=== PATIENT | male | born 1935 | race Caucasian/White ===

== ENCOUNTER 2018-02-16 08:29 | Inpatient (IN) | payer MEDICARE, OTHER ==
[2018-02-16] MEDS ORDERED: NORMAL SALINE 1000 ML 1,000 ML IV ONE (09:19)
[2018-02-16] MEDS ORDERED: DIPHENOXYLATE HCL/ATROP SULF 2.5-0.025 MG TABLET PO ONE (09:21)
--- NOTE | 2018-02-16 09:26 | ER Document Report ---
ED General - General Chief Complaint: General Weakness Stated Complaint: WEAKNESS Time Seen by Provider: 02/16/18 09:18 Mode of Arrival: Stretcher Information source: Relative, Legal Guardian Notes: Chief complaint: General weakness History of complain:( obtained from----patient) 83 years old male with a history of drinking bottle and a half of wine every day, till a week ago. For a week he has been mostly on bed not been eating anything drinking milk and other fluids, having continuous diarrhea. No nausea vomiting no fever chills or other constitutional symptoms. Denies any chest pain shortness of breath cough. Onset: Gradual Duration: 1 week Severity: Mild to moderate Quality: General weakness Context: Not eating and drinking Exacerbating factor and relieving factors: Not known REVIEW OF SYSTEMS: CONSTITUTIONAL : Denies fever, chills, or sweats. Denies recent illness. EENT: Denies eye, ear, throat, or mouth pain or symptoms. Denies nasal or sinus congestion or discharge. Denies throat, tongue, or mouth swelling or difficulty swallowing. CARDIOVASCULAR: Denies chest pain. Denies palpitations or racing or irregular heart beat. Denies ankle edema. RESPIRATORY: Denies cough, cold, or chest congestion. Denies shortness of breath, difficulty breathing, or wheezing. GASTROINTESTINAL: Denies distention. Denies nausea, vomiting. Denies blood in vomitus, stools, or per rectum. Denies black, tarry stools. Denies constipation. GENITOURINARY: Denies difficulty urinating, painful urination, burning, frequency, blood in urine, or discharge. FEMALE GENITOURINARY: Denies vaginal bleeding, heavy or abnormal periods, irregular periods. Denies vaginal discharge or odor. MUSCULOSKELETAL: Denies back or neck pain or stiffness. Denies joint pain or swelling. SKIN: Denies rash, lesions or sores. HEMATOLOGIC : Denies easy bruising or bleeding. LYMPHATIC: Denies swollen, enlarged glands. NEUROLOGICAL: Denies confusion or altered mental status. Denies passing out or loss of consciousness. Denies dizziness or lightheadedness. Denies headache. Denies weakness or paralysis or loss of use of either side. Denies problems with gait or speech. Denies sensory loss, numbness, or tingling. Denies seizures. PSYCHIATRIC: Denies anxiety or stress. Denies depression, suicidal ideation, or homicidal ideation. ALL OTHER SYSTEMS REVIEWED AND NEGATIVE. PHYSICAL EXAMINATION: GENERAL: Well-appearing, well-nourished and in no acute distress. Appears generally weak and dry skin HEAD: Atraumatic, normocephalic. EYES: Pupils equal round and reactive to light, extraocular movements intact, conjunctiva are normal. ENT: Nares patent, oropharynx clear without exudates. Moist mucous membranes. NECK: Normal range of motion, supple without lymphadenopathy LUNGS: Breath sounds clear to auscultation bilaterally and equal. No wheezes rales or rhonchi. HEART: Regular rate and rhythm without murmurs ABDOMEN: Soft, nontender, nondistended abdomen. No guarding, no rebound. No masses appreciated. Examination of genitals-deferred Musculoskeletal: Normal range of motion, no pitting or edema. No cyanosis. NEUROLOGICAL: Cranial nerves grossly intact. Normal speech, normal gait. Normal sensory, motor exams PSYCH: Normal mood, normal affect. SKIN: Warm, Dry, normal turgor, no rashes or lesions noted. Dictation was performed using [employer] voice recognition software TRAVEL OUTSIDE OF THE [place] IN LAST 30 DAYS: No - HPI Patient complains to provider of: Dictated Notes: Dictated - Related Data Allergies/Adverse Reactions: No Known Allergies Allergy (Verified 02/16/18 08:47) Past Medical History - Social History Smoking Status: Former Smoker Cigarette use (# per day): No Chew tobacco use (# tins/day): No Smoking Education Provided: No Frequency of alcohol use: Heavy Drug Abuse: None Lives with: Family Family History: Reviewed & Not Pertinent Patient has suicidal ideation: No Patient has homicidal ideation: No - Past Medical History Cardiac Medical History: Reports: Hx Atrial Fibrillation Pulmonary Medical History: Reports: Hx COPD, Hx Pneumonia Endocrine Medical History: Reports: Hx Diabetes Mellitus Type 2 Renal/ Medical History: Denies: Hx Peritoneal Dialysis Review of Systems - Review of Systems Notes: Dictated Physical Exam - Vital signs Vitals: Temp Resp BP Pulse Ox 97.6 F 18 120/77 100 02/16/18 08:30 02/16/18 08:30 02/16/18 08:30 02/16/18 08:30 - Notes Notes: Dictated Course - Re-evaluation Re-evalutation: 02/16/18 14:25 Case was discussed with hospitalist and currently being admitted - Vital Signs Vital signs: Temp Pulse Resp BP Pulse Ox 97.6 F 23 H 119/72 99 02/16/18 08:30 02/16/18 13:01 02/16/18 13:00 02/16/18 13:01 - Laboratory Result Diagrams: 02/16/18 10:41 02/16/18 11:27 Laboratory results interpreted by me: 02/16/18 02/16/18 02/16/18 10:41 11:27 11:27 WBC 17.3 H RBC 3.58 L Hgb 12.3 L Hct 36.1 L MCV 101 H MCH 34.3 H RDW 14.7 H Seg Neuts % (Manual) 96 H Lymphocytes % (Manual) 0 L Abs Neuts (Manual) 16.6 H Abs Lymphs (Manual) 0.0 L Sodium 131.8 L Carbon Dioxide 15 L BUN 133 H Creatinine 2.29 H Est GFR ( Amer) 33 L Est GFR (Non-Af Amer) 28 L Glucose 152 H AST 14 L Ammonia < 8.7 L Creatine Kinase 27 L - Diagnostic Test Radiology reviewed: Reports reviewed - Reported by radiologist as stable, no acute finding - EKG Interpretation by Me Rhythm: A.Fib - Atrial fibrillation at the rate of 81 bpm PVCs multiple, right bundle branch block pattern. Discharge - Discharge Clinical Impression: Dehydration, Gastroenteritis Acute renal failure (ARF) Qualifiers: Acute renal failure type: unspecified Qualified Code(s): N17.9 - Acute kidney failure, unspecified Condition: Poor Disposition: ADMITTED INPATIENT Admitting Provider: Hospitalist Unit Admitted: Telemetry Referrals: CHEMA FERNANDEZ MD [Primary Care Provider] - Follow up as needed
[2018-02-16] MEDS: NORMAL SALINE 1000 ML 1,000 ML IV PRN (09:41)
[2018-02-16 10:13] LABS: APPEARANCE,URINE CLEAR; BILIRUBIN,URINE NEGATIVE (NEGATIVE); COLOR,URINE YELLOW; GLUCOSE, URINE NEGATIVE (NEGATIVE); KETONES,URINE NEGATIVE (NEGATIVE); LEUKOCYTE ESTERASE,URINE NEGATIVE (NEGATIVE); NITRITE,URINE NEGATIVE (NEGATIVE); PROTEIN,URINE NEGATIVE (NEGATIVE); URINE SPECIFIC GRAVITY 1.017; UROBILINOGEN,URINE NEGATIVE mg/dL (<2.0)
--- NOTE | 2018-02-16 10:36 | RADIOLOGY REPORT (SQ) ---
EXAM DESCRIPTION: ACUTE ABDOMEN SERIES COMPLETED DATE/TIME: 02/16/2018 10:15 am REASON FOR STUDY: Abdominal pain COMPARISON: Plain films of the chest dated 05/22/2009 NUMBER OF VIEWS: Three views. TECHNIQUE: Frontal chest, supine abdomen and upright/decubitus abdomen radiographic images acquired. LIMITATIONS: None. FINDINGS: CHEST: Stable subsegmental linear atelectasis or scar right lower lung. Mild emphysemato us changes suggested in the lungs. No acute pulmonary consolidation. FREE AIR: None. No abnormal gas collections. BOWEL GAS PATTERN: Mild to moderate dilated colonic loops. Nonobstructive pattern. No air fluid leve ls. CALCIFICATIONS: No suspicious calcifications. HARDWARE: Status post endovascular stent graft repair abdominal aortic aneurysm. SOFT TISSUES: No gross mass or suggestion of organomegaly. BONES: No acute fracture. Dextroconvex scoliosis and degenerative changes involving the lumbar spine . OTHER: No other significant finding. IMPRESSION: 1 Stable examination of the chest since the prior study dated 05/22/2009. 2. Mild to moderate dilated colonic loops, non-obstructive pattern. 3. Prior endovascular stent graft repair for abdominal aortic aneurysm. TECHNICAL DOCUMENTATION: JOB ID: [id number] [employer]- All Rights Reserved Reading location - IP/workstation name: [email or web address]
[2018-02-16 11:07] LABS: HEMATOCRIT 36.1 % (37.9-51.0); HEMOGLOBIN 12.3 g/dL (13.5-17.0); MEAN CORPUSCULAR HEMOGLOBIN 34.3 pg (27.0-33.4); MEAN CORPUSCULAR VOLUME 101 fl (80-97); PLATELET COUNT 254 10^3/uL (150-450); RED BLOOD COUNT 3.58 10^6/uL (4.35-5.55); RED CELL DISTRIBUTION WIDTH 14.7 % (11.5-14.0); WHITE BLOOD COUNT 17.3 10^3/uL (4.0-10.5)
[2018-02-16 11:26] LABS: ABSOLUTE MONOCYTES # (MANUAL) 0.7 10^3/uL (0.1-1.4); ABSOLUTE NEUTROPHILS# (MANUAL) 16.6 10^3/uL (1.7-8.2); BASOPHILS % (MANUAL) 0 % (0-2); EOSINOPHILS % (MANUAL) 0 % (0-6); LYMPHOCYTES % (MANUAL) 0 % (13-45); MONOCYTES % (MANUAL) 4 % (3-13); SEGMENTED NEUTROPHILS % (MAN) 96 % (42-78); TOTAL CELLS COUNTED 100
[2018-02-16 11:27] LABS: BURR CELLS 1+; OVALOCYTES 2+; PLATELET COMMENT ADEQUATE; POIKILOCYTOSIS 2+; POLYCHROMASIA 1+; SCHISTOCYTES 1+; TOXIC GRANULATION SLIGHT
[2018-02-16 12:05] LABS: ALANINE AMINOTRANSFERASE 29 U/L (21-72); ALKALINE PHOSPHATASE 66 U/L (38-126); ANION GAP 16 (5-19); ASPARTATE AMINO TRANSFERASE 14 U/L (17-59); BILIRUBIN,DIRECT 0.4 mg/dL (0.0-0.4); BILIRUBIN,TOTAL 0.7 mg/dL (0.2-1.3); CALCIUM 8.4 mg/dL (8.4-10.2); CARBON DIOXIDE 15 mmol/L (22-30); CHLORIDE 101 mmol/L (98-107); CREATINE KINASE 27 U/L (55-170); GLUCOSE 152 mg/dL (75-110); LIPASE 96.7 U/L (23-300); POTASSIUM 4.6 mmol/L (3.6-5.0); SODIUM 131.8 mmol/L (137-145); TOTAL PROTEIN 6.7 g/dL (6.3-8.2)
[2018-02-16 12:15] LABS: BLOOD UREA NITROGEN 133 mg/dL (7-20)
[2018-02-16 12:25] LABS: CREATINE KINASE MB 4.31 ng/mL (<4.55)
[2018-02-16 13:21] LABS: TROPONIN I 0.051 ng/mL
[2018-02-16] MEDS ORDERED: CIPROFLOXACIN 400 MG/D5W RTU 400 MG/200 ML RTUPB IV SCH ×2 (15:00→22:00)
[2018-02-16] MEDS ORDERED: METRONIDAZOLE 500 MG/NS RTU 500 MG/100 ML RTUPB IV ONE (15:00)
[2018-02-16] MEDS ORDERED: ACETAMINOPHEN 325 MG TABLET PO PRN (15:50)
[2018-02-16] MEDS ORDERED: IPRATROPIUM/ALBUTEROL 0.5-2.5 MG/3 ML AMPUL NEB PRN (15:50)
[2018-02-16] MEDS ORDERED: PROMETHAZINE HCL INJ 25 MG/1 ML VIAL IV PRN (15:57)
[2018-02-16] MEDS ORDERED: ONDANSETRON HCL INJ/PF 4 MG/2 ML SDV IV PRN (15:57)
[2018-02-16] MEDS ORDERED: CIPROFLOXACIN 400 MG/D5W RTU 400 MG/200 ML RTUPB IV ONE (16:00)
[2018-02-16] MEDS ORDERED: METRONIDAZOLE 500 MG/NS RTU 500 MG/100 ML RTUPB IV SCH (18:00)
[2018-02-16] MEDS: NORMAL SALINE 1000 ML 1,000 ML with POTASSIUM CHLORIDE 20 MEQ, MAGNESIUM SULFATE 8 MEQ,... IV SCH ×5 (18:36)
[2018-02-16] MEDS ORDERED: DEXTROSE 50%-WATER 25 GM/50 ML DISP.SYRIN IV PRN ×2 (18:41)
[2018-02-16] MEDS ORDERED: DEXTROSE 40% GEL 15 GM TUBE PO PRN ×2 (18:41)
[2018-02-16] MEDS ORDERED: GLUCAGON,HUMAN RECOMB 1 MG INJ IM PRN (18:41)
--- NOTE | 2018-02-16 18:46 | PDOC H&P ---
History of Present Illness Admission Date/PCP: 02/16/18 14:57 CHEMA FERNANDEZ MD Patient complains of: Weakness History of Present Illness: AZEB GOMES JR is a 83 year old male with a limited past medical history, due to the patient's mental status and family's unawareness, but known to have COPD, type 2 diabetes mellitus, hyperlipidemia, and alcohol abuse alcohol abuse who presents to the emergency department today with a complaint of increased fatigue, generalized weakness, and diarrhea for the last 5-7 days after the patient abruptly stopped drinking alcohol. Per the family the patient drinks 1- 2 bottles of wine daily. The son believes that the patient was being treated for a COPD exacerbation which prompted him to stop drinking. They deny any seizure-like activity over the course of the previous week and do not believe that the patient has a history of alcohol withdrawal related seizures. Evaluation in the emergency department reveals tachypnea (respiration rate 23) and otherwise normal vital signs, leukocytosis (WBCs 17.3), mild anemia, Hyponatremia (sodium 131.8) a low bicarb (15) and acute renal failure with a BUN of 133 and creatinine of 2.29. His LFTs were benign, ammonia less than 8.7. Initial troponin was indeterminately elevated at 0.051 and a proBNP was elevated at 1960. Urinalysis was negative for UTI. EKG revealed atrial fibrillation, which per family members is new to the patient. An acute abdomen series was negative for acute cardiopulmonary findings, demonstrated mild to moderate dilated colonic loops in a nonobstructive pattern, and prior endovascular stent graft for repair of AAA. He is referred to the hospitalist service for admission and management of acute renal failure secondary to dehydration in the setting of alcohol withdrawal. Past Medical History Cardiac Medical History: Denies: Congestive Heart Failure, Coronary Artery Disease, Myocardial Infarction Pulmonary Medical History: Reports: Chronic Obstructive Pulmonary Disease (COPD) , Pneumonia Neurological Medical History: Reports: None Endocrine Medical History: Reports: Diabetes Mellitus Type 2 Renal/ Medical History: Reports: None Malignancy Medical History: Reports: Skin Cancer GI Medical History: Reports: None Musculoskeltal Medical History: Reports: None Skin Medical History: Reports: None Psychiatric Medical History: Reports: Alcohol Dependency Denies: Tobacco Dependency Traumatic Medical History: Reports: None Hematology: Reports: None Infectious Medical History: Reports: None Past Surgical History Past Surgical History: Reports: Other - Endovascular graft AAA Social History Information Source: Relative Lives with: Family Smoking Status: Former Smoker Frequency of Alcohol Use: Heavy Hx Recreational Drug Use: No Drugs: None Hx Prescription Drug Abuse: No - Advance Directive Resuscitation Status: Do Not Resuscitate Surrogate healthcare decision maker:: The patient's , Roula Gomes, Family History Family History: Reviewed & Not Pertinent Parental Family History Reviewed: No Children Family History Reviewed: No Sibling(s) Family History Reviewed.: No Medication/Allergy Allergies/Adverse Reactions: No Known Allergies Allergy (Verified 02/16/18 08:47) Review of Systems Constitutional: PRESENT: anorexia, weakness. ABSENT: chills, fever(s), headache (s), weight gain, weight loss Eyes: ABSENT: visual disturbances Ears: ABSENT: hearing changes Cardiovascular: ABSENT: chest pain, dyspnea on exertion, edema, orthropnea, palpitations Respiratory: ABSENT: cough, hemoptysis Gastrointestinal: PRESENT: diarrhea, melena. ABSENT: abdominal pain, constipation, hematemesis, hematochezia, nausea, vomiting Genitourinary: ABSENT: dysuria, hematuria Musculoskeletal: ABSENT: joint swelling Integumentary: ABSENT: rash, wounds Neurological: PRESENT: weakness. ABSENT: abnormal gait, abnormal speech, confusion, dizziness, focal weakness, syncope Psychiatric: ABSENT: anxiety, depression, homidical ideation, suicidal ideation Endocrine: ABSENT: cold intolerance, heat intolerance, polydipsia, polyuria Hematologic/Lymphatic: ABSENT: easy bleeding, easy bruising Physical Exam Vital Signs: Temp Pulse Resp BP Pulse Ox 97.6 F 22 H 114/57 L 98 02/16/18 08:30 02/16/18 15:01 02/16/18 15:00 02/16/18 15:01 General appearance: PRESENT: no acute distress, disheveled, well-developed, well -nourished Head exam: PRESENT: atraumatic, normocephalic Eye exam: PRESENT: conjunctiva pink, EOMI, PERRLA. ABSENT: scleral icterus Ear exam: PRESENT: normal external ear exam Mouth exam: PRESENT: dry mucosa, tongue midline Neck exam: ABSENT: carotid bruit, JVD, lymphadenopathy, thyromegaly Respiratory exam: PRESENT: clear to auscultation tanvi, symmetrical, unlabored. ABSENT: rales, rhonchi, wheezes Cardiovascular exam: PRESENT: irregular rhythm, +S1, +S2. ABSENT: diastolic murmur, rubs Pulses: PRESENT: +1 pedal pulses bilateral Vascular exam: PRESENT: normal capillary refill GI/Abdominal exam: PRESENT: diminished bowel sounds, soft. ABSENT: distended, guarding, mass, organolmegaly, rebound, tenderness Rectal exam: PRESENT: deferred Extremities exam: PRESENT: full ROM. ABSENT: calf tenderness, clubbing, pedal edema Neurological exam: PRESENT: alert, awake, oriented to person, oriented to place , CN II-XII grossly intact, other - Somnolent; arouses easily but quickly falls back to sleep. Slightly confused.. ABSENT: oriented to time, oriented to situation, motor sensory deficit Psychiatric exam: PRESENT: appropriate affect, normal mood. ABSENT: homicidal ideation, suicidal ideation Skin exam: PRESENT: dry, intact, warm. ABSENT: cyanosis, rash Results Laboratory Results: 02/16/18 17:14 Troponin I 0.048 Impressions: Acute Abdomen Series 02/16/18 09:20 IMPRESSION: 1 Stable examination of the chest since the prior study dated 05/22. 2. Mild to moderate dilated colonic loops, non-obstructive pattern. 3. Prior endovascular stent graft repair for abdominal aortic aneurysm. Assessment & Plan - Diagnosis (1) Acute renal failure (ARF) Qualifiers: Acute renal failure type: unspecified Qualified Code(s): N17.9 - Acute kidney failure, unspecified Is this a current diagnosis for this admission?: Yes Plan: Acute renal failure; prerenal secondary to dehydration. Unknown baseline creatinine as previous laboratory evaluation is from 2010 and family are unaware of his current medical history. The patient is found to have a BUN of 133, creatinine 2.29, GFR 28. Fortunately his sodium is only mildly low and potassium is normal. He is placed on a clear liquid diet; will encourage p.o. fluids. Antiemetics as needed. He is placed on IV fluids. Avoid nephrotoxic medications as able. Renally dosed antibiotics. We will monitor serial chemistries. Consider renal ultrasound or nephrology consultation if no improvement with IV fluid rehydration overnight. (2) Atrial fibrillation Qualifiers: Atrial fibrillation type: unspecified Qualified Code(s): I48.91 - Unspecified atrial fibrillation Is this a current diagnosis for this admission?: Yes Plan: Atrial fibrillation; due to the patient per family members, although they admittedly do not know his medical history well. Home medications are not available for reconciliation. He is currently rate controlled in the 80s. No heart murmurs are auscultated. We will obtain echocardiogram. Due to family report of melena, holding aspirin and anticoagulant therapy pending evaluation. (3) Alcohol withdrawal Qualifiers: Complication of substance-induced condition: with unspecified complication Qualified Code(s): F10.239 - Alcohol dependence with withdrawal, unspecified Is this a current diagnosis for this admission?: Yes Plan: The patient reportedly drinks 1-1/2 bottles of wine daily and abruptly stopped drinking alcohol about 7 hours ago. Per family members, the patient has had very little intake over the last 7 days with near continuous loose stools. No known history of alcohol withdrawal seizure. As the patient stopped drinking 1 week ago, there is no need for scheduled benzodiazepines. The patient is placed on fall, seizure, aspiration precautions. We will continueduled IV maintenance fluids. We will provide as needed IV Ativan for anxiety, agitation, and withdrawal symptoms. Antiemetics as needed. Banana bag nightly. Discharge planning is consulted. (4) Type 2 diabetes mellitus Qualifiers: Diabetes mellitus half-way insulin use: without half-way use Is this a current diagnosis for this admission?: No Plan: The patient is placed on a consistent carb/clear liquid diet. We will check Accu-Cheks before meals and at bedtime and provide Humalog sliding scale coverage. Hypoglycemia protocols in place. (5) COPD (chronic obstructive pulmonary disease) Is this a current diagnosis for this admission?: No Plan: History of COPD; stable and without exacerbation at this time. Reportedly, the patient was recently treated with azithromycin and a steroid pack. His lung sounds are clear at present. Provide supplemental oxygen as needed to maintain oxygen saturations greater than 88%. As needed nebulizer treatments are available. No indication for steroids at this time. (6) Hyperlipidemia Is this a current diagnosis for this admission?: No Plan: We will resume the patient's home medications once reconciled. (7) Dehydration Is this a current diagnosis for this admission?: Yes Plan: Secondary to EtOH withdrawal resulting in loose stools and poor p.o. intake for the previous 7 days. Plan as above. (8) Gastroenteritis Is this a current diagnosis for this admission?: Yes Plan: Alcoholic gastroenteritis with report of melena. We will support with IV fluids. As needed antiemetics. We will obtain stool for culture to rule out additional causes as well as to test for blood. He is placed on IV Protonix twice daily; holding DVT prophylaxis and aspirin pending fecal occult stool. Due to leukocytosis and acute abdomen xray showing moderately dilated colon, the patient is placed on renally dosed IV Cipro and metronidazole. (9) Alcohol dependence, continuous Is this a current diagnosis for this admission?: Yes Plan: Plan as above. - Time Time Spent: 50 to 70 Minutes Medications reviewed and adjusted accordingly: Yes Anticipated discharge: Home - Inpatient Certification Based on my medical assessment, after consideration of the patient's comorbidities, presenting symptoms, or acuity I expect that the services needed warrant INPATIENT care.: Yes I certify that my determination is in accordance with my understanding of Medicare's requirements for reasonable and necessary INPATIENT services [42 CFR 412.3e].: Yes Medical Necessity: Need For IV Fluids
[2018-02-16] MEDS ORDERED: DIAZEPAM 5 MG TABLET PO PRN (18:54)
[2018-02-16] MEDS: METRONIDAZOLE 500 MG/NS RTU 500 MG/100 ML RTUPB IV SCH (20:58)
--- NOTE | 2018-02-16 22:04 | EKG REPORT ---
SEVERITY:- ABNORMAL ECG - ATRIAL FIBRILLATION RBBB AND LAFB : Confirmed by: Jamila Graves MD 16-Feb-2018 22:03:54
[2018-02-16] MEDS: PANTOPRAZOLE SODIUM 40 MG VIAL IV SCH (23:56)
[2018-02-17 03:55] LABS: HEMATOCRIT 33.7 % (37.9-51.0); HEMOGLOBIN 11.5 g/dL (13.5-17.0); MEAN CORPUSCULAR HEMOGLOBIN 34.3 pg (27.0-33.4); MEAN CORPUSCULAR HGB CONC 34.2 g/dL (32.0-36.0); MEAN CORPUSCULAR VOLUME 100 fl (80-97); PLATELET COUNT 233 10^3/uL (150-450); RED BLOOD COUNT 3.37 10^6/uL (4.35-5.55)
[2018-02-17 04:11] LABS: ALANINE AMINOTRANSFERASE 31 U/L (21-72); ALBUMIN 3.5 g/dL (3.5-5.0); ALKALINE PHOSPHATASE 56 U/L (38-126); ANION GAP 11 (5-19); ASPARTATE AMINO TRANSFERASE 13 U/L (17-59); BILIRUBIN,DIRECT 0.3 mg/dL (0.0-0.4); CALCIUM 8.5 mg/dL (8.4-10.2); CARBON DIOXIDE 17 mmol/L (22-30); CHLORIDE 107 mmol/L (98-107); GLUCOSE 110 mg/dL (75-110); PHOSPHORUS 3.6 mg/dL (2.5-4.5); POTASSIUM 3.9 mmol/L (3.6-5.0); SODIUM 135.3 mmol/L (137-145)
[2018-02-17 04:14] LABS: ABSOLUTE LYMPHOCYTES# (MANUAL) 0.2 10^3/uL (0.5-4.7); ABSOLUTE MONOCYTES # (MANUAL) 0.1 10^3/uL (0.1-1.4); ABSOLUTE NEUTROPHILS# (MANUAL) 8.7 10^3/uL (1.7-8.2); BASOPHILS % (MANUAL) 0 % (0-2); EOSINOPHILS % (MANUAL) 0 % (0-6); LYMPHOCYTES % (MANUAL) 2 % (13-45); MONOCYTES % (MANUAL) 1 % (3-13); SEGMENTED NEUTROPHILS % (MAN) 97 % (42-78); TOTAL CELLS COUNTED 100
[2018-02-17 04:17] LABS: ACANTHOCYTES SLIGHT; ANISOCYTOSIS SLIGHT; BURR CELLS 2+; POIKILOCYTOSIS 2+; SCHISTOCYTES SLIGHT; TEAR DROP CELLS SLIGHT
[2018-02-17 04:18] LABS: PLATELET COMMENT ADEQUATE
[2018-02-17 04:20] LABS: BLOOD UREA NITROGEN 103 mg/dL (7-20)
[2018-02-17 04:47] LABS: FREE T4 (FREE THYROXINE) 0.68 ng/dL (0.78-2.19)
[2018-02-17 05:01] LABS: THYROID STIMULATING HORMONE 0.46 uIU/mL (0.47-4.68)
[2018-02-17] MEDS: LORAZEPAM INJ 2 MG/1 ML VIAL IV PRN ×3 (05:05→23:47)
[2018-02-17] MEDS: METRONIDAZOLE 500 MG/NS RTU 500 MG/100 ML RTUPB IV SCH ×4 (05:30→23:13)
[2018-02-17] MEDS: NORMAL SALINE 1000 ML 1,000 ML IV PRN (05:30)
[2018-02-17] MEDS: PANTOPRAZOLE SODIUM 40 MG VIAL IV SCH (09:42)
[2018-02-17] MEDS ORDERED: CIPROFLOXACIN 400 MG/D5W RTU 400 MG/200 ML RTUPB IV SCH (16:00)
--- NOTE | 2018-02-17 16:20 | RADIOLOGY REPORT (SQ) ---
EXAM DESCRIPTION: CHEST SINGLE VIEW COMPLETED DATE/TIME: 02/17/2018 4:02 pm REASON FOR STUDY: lethargy. upper respiratory secretions COMPARISON: None. EXAM PARAMETERS: NUMBER OF VIEWS: One view. TECHNIQUE: Single frontal radiographic view of the chest acquired. RADIATION DOSE: NA LIMITATIONS: None. FINDINGS: LUNGS AND PLEURA: Hyperinflation and bullous formation upper lung zones. Bibasilar atelec tasis or infiltrate greater on the right. Depression of the minor fissure on the right related to vo lume loss right lower lobe. MEDIASTINUM AND HILAR STRUCTURES: No masses. Contour normal. HEART AND VASCULAR STRUCTURES: Heart normal in size. Normal vasculature. BONES: No acute findings. HARDWARE: None in the chest. OTHER: No other significant finding. IMPRESSION: COPD. Bibasilar atelectasis or infiltrate significantly greater on the right. TECHNICAL DOCUMENTATION: JOB ID: [id number] [employer]- All Rights Reserved Reading location - IP/workstation name: [email or web address]
[2018-02-17] MEDS: NORMAL SALINE 1000 ML 1,000 ML with POTASSIUM CHLORIDE 20 MEQ, MAGNESIUM SULFATE 8 MEQ,... IV SCH ×5 (17:48)
--- NOTE | 2018-02-17 21:43 | PDOC PROGRESS REPORT ---
Subjective Progress Note for:: 02/17/18 Subjective:: 83 y.o. M admitted to [facility] with a chief complaint of weakness. PMH includes COPD , DM, HLD, and chronic ETOH use. Patient's family reports that he drinks 1.5 bottles of wine per day. He stopped drinking 1 week prior to admission. Proceeded to develop diarrhea and significant weakness. The patient was seen this morning on rounds. He was asleep, but arousable to tactile stimuli. He would open his eyes to command, but is otherwise non- participatory in assessment. Patient remains in AFIB with frequent PVCs. ECHOcardiogram completed today, results pending. Upon auscultation, upper airway rhonci can be auscultated. the patient is able to maintain SPO2>88% on room air. Plan for CXR and upper airway NT suctioning by respiratory therapist. Reason For Visit: ACUTE RENAL FAILURE, DEHYDRATION, HYPONATREMIA Physical Exam Vital Signs: Temp Pulse Resp BP Pulse Ox 97.4 F 88 15 114/50 L 91 L 02/17/18 20:03 02/17/18 20:03 02/17/18 20:03 02/17/18 20:03 02/17/18 20:03 Intake & Output 02/16/18 02/17/18 02/18/18 06:59 06:59 06:59 Intake Total 1843 1354 Balance 1843 1354 Weight 68.7 kg General appearance: PRESENT: no acute distress Eye exam: PRESENT: conjunctiva pink, PERRLA Mouth exam: PRESENT: moist Teeth exam: PRESENT: poor dentation Neck exam: PRESENT: full ROM Respiratory exam: PRESENT: rhonchi, symmetrical. ABSENT: stridor, tachypnea, unlabored Cardiovascular exam: PRESENT: other - AFIB - rate controlled. Frequent PVCs Pulses: PRESENT: normal radial pulses, normal dorsalis pedis pul Vascular exam: PRESENT: normal capillary refill GI/Abdominal exam: PRESENT: soft. ABSENT: tenderness Rectal exam: PRESENT: deferred Extremities exam: PRESENT: full ROM. ABSENT: pedal edema Musculoskeletal exam: PRESENT: full ROM. ABSENT: ambulatory - Per PT/OT patient is not safe to get OOB Neurological exam: ABSENT: alert, awake, oriented to person, oriented to place, oriented to time, oriented to situation Psychiatric exam: PRESENT: appropriate affect Skin exam: PRESENT: dry, intact, warm Results Laboratory Results: 02/17/18 03:42 02/17/18 03:42 02/17/18 02/17/18 02/17/18 03:42 03:42 03:42 WBC 9.0 RBC 3.37 L Hgb 11.5 L Hct 33.7 L MCV 100 H MCH 34.3 H MCHC 34.2 RDW 15.0 H Plt Count 233 Seg Neutrophils % Not Reportable Lymphocytes % Not Reportable Monocytes % Not Reportable Eosinophils % Not Reportable Basophils % Not Reportable Absolute Neutrophils Not Reportable Absolute Lymphocytes Not Reportable Absolute Monocytes Not Reportable Absolute Eosinophils Not Reportable Absolute Basophils Not Reportable Sodium 135.3 L Potassium 3.9 Chloride 107 Carbon Dioxide 17 L Anion Gap 11 BUN 103 H D Creatinine 1.44 H Est GFR ( Amer) 57 L Est GFR (Non-Af Amer) 47 L Glucose 110 Calcium 8.5 Phosphorus 3.6 Magnesium 2.5 H Total Bilirubin 1.0 AST 13 L ALT 31 Alkaline Phosphatase 56 Total Protein 6.0 L Albumin 3.5 TSH 0.46 L Free T4 0.68 L 02/16/18 02/16/18 02/17/18 17:14 21:45 03:42 Troponin I 0.048 0.055 0.061 02/17/18 15:44 Troponin I 0.061 Impressions: Acute Abdomen Series 02/16/18 09:20 IMPRESSION: 1 Stable examination of the chest since the prior study dated 05/22. 2. Mild to moderate dilated colonic loops, non-obstructive pattern. 3. Prior endovascular stent graft repair for abdominal aortic aneurysm. Chest X-Ray 02/17/18 00:00 IMPRESSION: COPD. Bibasilar atelectasis or infiltrate significantly greater on the right. Status: Imported from PACS Assessment & Plan - Diagnosis (1) Acute renal failure (ARF) Qualifiers: Acute renal failure type: unspecified Qualified Code(s): N17.9 - Acute kidney failure, unspecified Is this a current diagnosis for this admission?: Yes Plan: Acute renal failure; prerenal secondary to dehydration. Unknown baseline creatinine as previous laboratory evaluation is from 2010 and family are unaware of his current medical history. The patient is found to have a BUN of 133, creatinine 2.29, GFR 28. Fortunately his sodium is only mildly low and potassium is normal. He is placed on a clear liquid diet; currently unable to tolerate PO intake due to poor neuro exam - requiring sternal rub to wake up. Antiemetics as needed. He is placed on IV fluids. Avoid nephrotoxic medications as able. Renally dosed antibiotics. We will monitor serial chemistries. Consider renal ultrasound or nephrology consultation if no improvement. (2) Dehydration Is this a current diagnosis for this admission?: Yes Plan: plan as above (3) Atrial fibrillation Qualifiers: Atrial fibrillation type: unspecified Qualified Code(s): I48.91 - Unspecified atrial fibrillation Is this a current diagnosis for this admission?: Yes Plan: Atrial fibrillation; family admittedly does not know his medical history well. Home medications are not available for reconciliation. He is currently rate controlled in the 80s. No heart murmurs are auscultated. ECHOcardiogram completed, results pending Due to family report of melena, holding aspirin and anticoagulant therapy pending evaluation. (4) PNA (pneumonia) Is this a current diagnosis for this admission?: Yes Plan: As evidence by infiltrates seen on XRAY, and an increase in respiratory secretions Sputum culture ordered - results pending PRN Nasotracheal suctioning by RT Empiric antibiotic coverage for community acquired PNA in COPD patient - Levaquin 750mg IV daily (5) Alcohol withdrawal Qualifiers: Complication of substance-induced condition: with unspecified complication Qualified Code(s): F10.239 - Alcohol dependence with withdrawal, unspecified Is this a current diagnosis for this admission?: Yes Plan: The patient reportedly drinks 1.5 bottles of wine daily and abruptly stopped drinking alcohol about 7 days ago. Per family members, the patient has had very little intake over the last 7 days with near continuous loose stools. No known history of alcohol withdrawal seizure. The patient is placed on fall, seizure, aspiration precautions. We will continueduled IV maintenance fluids. Continue scheduled PO valium. We will provide as needed IV Ativan for anxiety, agitation, and withdrawal symptoms. Antiemetics as needed. Banana bag nightly. Discharge planning is consulted. (6) Type 2 diabetes mellitus Qualifiers: Diabetes mellitus intermediate card tender insulin use: without fci use Is this a current diagnosis for this admission?: No Plan: The patient is placed on a consistent carb/clear liquid diet. We will check Accu-Cheks before meals and at bedtime and provide Humalog sliding scale coverage. Hypoglycemia protocols in place. (7) Gastroenteritis Is this a current diagnosis for this admission?: Yes Plan: Alcoholic gastroenteritis with report of melena. Continue IV fluids. As needed antiemetics. When possible, obtain stool for culture to rule out additional causes as well as to test for blood. Continue IV Protonix twice daily; holding DVT prophylaxis and aspirin pending fecal occult stool. Due to leukocytosis and acute abdomen xray showing moderately dilated colon, the patient is placed on renally dosed IV Cipro and metronidazole. (8) Hyperlipidemia Is this a current diagnosis for this admission?: No Plan: We will resume the patient's home medications once reconciled. (9) COPD (chronic obstructive pulmonary disease) Is this a current diagnosis for this admission?: No Plan: History of COPD; stable and without exacerbation at this time. Reportedly, the patient was recently treated with azithromycin and a steroid pack. His lung sounds are clear at present. Provide supplemental oxygen as needed to maintain oxygen saturations greater than 88%. As needed nebulizer treatments are available. No indication for steroids at this time. - Time Time Spent with patient: 15-24 minutes Medications reviewed and adjusted accordingly: Yes Anticipated discharge: Home - Inpatient Certification Based on my medical assessment, after consideration of the patient's comorbidities, presenting symptoms, or acuity I expect that the services needed warrant INPATIENT care.: Yes I certify that my determination is in accordance with my understanding of Medicare's requirements for reasonable and necessary INPATIENT services [42 CFR 412.3e].: Yes Medical Necessity: Risk of Complication if Not Cared For in Hospital - Plan Summary Plan Summary: MONITOR CLOSELY FOR DT. INITIATE EMPIRIC PNA TREATMENT. CONTINUE IVF FOR ARF. ECHO DONE, RESULTS PENDING.
[2018-02-18] MEDS: LORAZEPAM INJ 2 MG/1 ML VIAL IV PRN ×3 (03:19→21:56)
[2018-02-18] MEDS: PANTOPRAZOLE SODIUM 40 MG VIAL IV SCH ×3 (03:23→21:51)
[2018-02-18] MEDS: METRONIDAZOLE 500 MG/NS RTU 500 MG/100 ML RTUPB IV SCH ×4 (03:25→21:50)
[2018-02-18 05:58] LABS: HEMOGLOBIN 10.5 g/dL (13.5-17.0); MEAN CORPUSCULAR HEMOGLOBIN 35.2 pg (27.0-33.4); MEAN CORPUSCULAR HGB CONC 34.9 g/dL (32.0-36.0); MEAN CORPUSCULAR VOLUME 101 fl (80-97); PLATELET COUNT 195 10^3/uL (150-450); RED BLOOD COUNT 2.98 10^6/uL (4.35-5.55); RED CELL DISTRIBUTION WIDTH 14.9 % (11.5-14.0); WHITE BLOOD COUNT 7.7 10^3/uL (4.0-10.5)
[2018-02-18 06:18] LABS: ANION GAP 10 (5-19); BLOOD UREA NITROGEN 53 mg/dL (7-20); CALCIUM 8.3 mg/dL (8.4-10.2); CARBON DIOXIDE 18 mmol/L (22-30); CHLORIDE 114 mmol/L (98-107); GLUCOSE 118 mg/dL (75-110); PHOSPHORUS 2.8 mg/dL (2.5-4.5); POTASSIUM 3.4 mmol/L (3.6-5.0); SODIUM 141.9 mmol/L (137-145)
[2018-02-18] MEDS: LEVOFLOXACIN 750 MG/D5W RTU 750 MG/150 ML RTUPB IV SCH (09:15)
--- NOTE | 2018-02-18 09:40 | XCELERA REPORT ---
[address] [address] Transthoracic Echocardiogram Report Name: AZEB GOMES JR Age: 83 yrs Gender: Male : 1935 Patient Status: Inpatient Patient Location: [address] [place] [address] Study Date: 02/17/2018 10:49 AM Procedure: A complete two-dimensional transthoracic echocardiogram was performed (2D, M-mode, spectral and color flow Doppler). The study was technically difficult with many images being suboptimal in quality. Reason For Study: new afib Ordering Physician: SIS TORRES Performed By: Beckie Watson Interpretation Summary The left ventricular ejection fraction is preserved. Consider additional methods to assess LVEF such as MUGA scan, CTA heart, cardiac MRI, KEATON, etc. if clinically indicated. The left ventricular cavity is small. There is borderline concentric left ventricular hypertrophy. LV diastolic function could not be adequately assessed. Regional wall motion abnormalities cannot be excluded due to limited visualization. The right ventricle is moderately dilated. Right ventricular function cannot be assessed due to poor image quality. Right atrium not well visualized secondary to technical limitations The left atrium is mildly dilated. There is no mitral valve stenosis. There is no mitral regurgitation noted. There is no aortic valve stenosis No aortic regurgitation is present. There is a mild amount of tricuspid regurgitation There is moderate pulmonary hypertension by echo Right ventricular systolic pressure is estimated to be elevated at 50- 60mmHg. The aortic root is not well visualized. The inferior vena cava was not well visualized There is no pericardial effusion. MMode/2D Measurements & Calculations RVDd: 3.7 cm LVIDd: 4.3 cm FS: 37.4 % Ao root diam: 3.4 cm IVSd: 0.89 cm LVIDs: 2.7 cm EDV(Teich): 82.9 ml Ao root area: 8.9 cm2 LVPWd: 1.1 cm ESV(Teich): 26.8 ml EF(Teich): 67.7 % LVOT diam: 1.3 cm LVOT area: 1.4 cm2 Doppler Measurements & Calculations MV E max titus: MV dec slope: Ao V2 max: LV V1 max P.8 cm/sec 135.4 cm/sec 2.7 mmHg MV A max titus: 300.3 cm/sec2 Ao max PG: LV V1 max: 27.4 cm/sec MV dec time: 7.3 mmHg 82.5 cm/sec MV E/A: 2.5 0.23 sec NOHEMI(V,D): 0.83 cm2 TR max titus: 330.4 cm/sec TR max P.7 mmHg Left Ventricle The left ventricular cavity is small. There is borderline concentric left ventricular hypertrophy. The left ventricular ejection fraction is preserved. Consider additional methods to assess LVEF such as MUGA scan, CTA heart, cardiac MRI, KEATON, etc. if clinically indicated. LV diastolic function could not be adequately assessed. Regional wall motion abnormalities cannot be excluded due to limited visualization. Right Ventricle The right ventricle is moderately dilated. Right ventricular function cannot be assessed due to poor image quality. Atria Right atrium not well visualized secondary to technical limitations. The left atrium is mildly dilated. Interarterial septum not well visualized and not well dopplered. Cannot comment on ASD/PFO presence. Mitral Valve The mitral valve leaflets are sclerotic, but show no functional abnormalities. There is no mitral valve stenosis. There is no mitral regurgitation noted. Aortic Valve The aortic valve is not well visualized secondary to technical limitations. The aortic valve opens well. There is no aortic valve stenosis. No aortic regurgitation is present. Tricuspid Valve The tricuspid valve is not well visualized secondary to technical limitations. There is no tricuspid stenosis. There is a mild amount of tricuspid regurgitation. There is moderate pulmonary hypertension by echo. Right ventricular systolic pressure is estimated to be elevated at 50- 60mmHg. Pulmonic Valve The pulmonic valve is not well visualized. Great Vessels The aortic root is not well visualized. The inferior vena cava was not well visualized. Effusions There is no pericardial effusion. : SIS TORRES > Keisha Loco
[2018-02-18] MEDS: POTASSI CL 20 MEQ/50 ML RIDER 20 MEQ/50 ML RTUPB IV SCH ×3 (12:32→18:55)
--- NOTE | 2018-02-18 18:13 | PDOC PROGRESS REPORT ---
Subjective Progress Note for:: 02/18/18 Subjective:: 83 y.o. M admitted to [facility] with a chief complaint of weakness. PMH includes COPD , DM, HLD, and chronic ETOH use. Patient's family reports that he drinks 1.5 bottles of wine per day. He stopped drinking 1 week prior to admission. Proceeded to develop diarrhea and significant weakness. The patient was seen this morning on rounds. He was asleep, but arousable to verbal stimuli. He would open his eyes to command and is able to answer simple yes/no questions - this is an improvement from yesterday. Patient remains in AFIB with frequent PVCs. ECHOcardiogram completed today, normal LVEF, mild RV dilation, mild LVH. Upon auscultation, lung sounds are clear, there is upper airway congestion - RT has been preforming NT suction. The patient is able to maintain SPO2>88% on room air. Reason For Visit: ACUTE RENAL FAILURE, DEHYDRATION, HYPONATREMIA Physical Exam Vital Signs: Temp Pulse Resp BP Pulse Ox 97.8 F 98 22 H 123/72 92 02/18/18 15:25 02/18/18 15:25 02/18/18 15:25 02/18/18 15:25 02/18/18 15:25 Intake & Output 02/17/18 02/18/18 02/19/18 06:59 06:59 06:59 Intake Total 1843 2233 644 Balance 1843 2233 644 Weight 68.7 kg 68.8 kg General appearance: PRESENT: no acute distress, thin Eye exam: PRESENT: conjunctiva pink, PERRLA Mouth exam: PRESENT: moist Teeth exam: PRESENT: poor dentation Neck exam: PRESENT: full ROM Respiratory exam: PRESENT: clear to auscultation tanvi, symmetrical, unlabored, other - upper airway congestion Cardiovascular exam: PRESENT: irregular rhythm Pulses: PRESENT: normal radial pulses, normal dorsalis pedis pul GI/Abdominal exam: PRESENT: normal bowel sounds, soft. ABSENT: tenderness Rectal exam: PRESENT: deferred Extremities exam: ABSENT: full ROM, pedal edema Musculoskeletal exam: ABSENT: ambulatory - Per PT/OT - unable to get OOB even with 2 person assist, full ROM Neurological exam: PRESENT: altered, awake, oriented to person. ABSENT: oriented to place, oriented to time, oriented to situation Skin exam: PRESENT: dry, intact, warm Results Laboratory Results: 02/18/18 05:16 02/18/18 05:16 02/18/18 02/18/18 05:16 05:16 WBC 7.7 RBC 2.98 L Hgb 10.5 L Hct 30.0 L MCV 101 H MCH 35.2 H MCHC 34.9 RDW 14.9 H Plt Count 195 Sodium 141.9 Potassium 3.4 L Chloride 114 H Carbon Dioxide 18 L Anion Gap 10 BUN 53 H Creatinine 0.86 Est GFR ( Amer) > 60 Est GFR (Non-Af Amer) > 60 Glucose 118 H Calcium 8.3 L Phosphorus 2.8 Magnesium 2.4 H 02/16/18 02/16/18 02/17/18 17:14 21:45 03:42 Troponin I 0.048 0.055 0.061 NT-Pro-B Natriuret Pep 02/17/18 02/18/18 15:44 05:16 Troponin I 0.061 NT-Pro-B Natriuret Pep 1810 H Impressions: Acute Abdomen Series 02/16/18 09:20 IMPRESSION: 1 Stable examination of the chest since the prior study dated 05/22. 2. Mild to moderate dilated colonic loops, non-obstructive pattern. 3. Prior endovascular stent graft repair for abdominal aortic aneurysm. Chest X-Ray 02/17/18 00:00 IMPRESSION: COPD. Bibasilar atelectasis or infiltrate significantly greater on the right. Status: Imported from PACS Assessment & Plan - Diagnosis (1) Acute renal failure (ARF) Qualifiers: Acute renal failure type: unspecified Qualified Code(s): N17.9 - Acute kidney failure, unspecified Is this a current diagnosis for this admission?: Yes Plan: Acute renal failure; prerenal secondary to dehydration. Unknown baseline creatinine as previous laboratory evaluation is from 2010 and family are unaware of his current medical history. The patient is found to have a BUN of 133, creatinine 2.29, GFR 28. He is placed on a clear liquid diet; currently unable to tolerate PO intake due to poor neuro exam. Antiemetics as needed. He is placed on IV fluids. Avoid nephrotoxic medications as able. Renally dosed antibiotics. We will monitor serial chemistries. Consider renal ultrasound or nephrology consultation if no improvement. (2) Dehydration Is this a current diagnosis for this admission?: Yes Plan: plan as above (3) Atrial fibrillation Qualifiers: Atrial fibrillation type: unspecified Qualified Code(s): I48.91 - Unspecified atrial fibrillation Is this a current diagnosis for this admission?: Yes Plan: Atrial fibrillation; family admittedly does not know his medical history well. He is currently rate controlled in the 80s. No heart murmurs are auscultated. ECHOcardiogram completed, results pending Due to family report of melena, holding aspirin and anticoagulant therapy pending evaluation. (4) PNA (pneumonia) Is this a current diagnosis for this admission?: Yes Plan: As evidence by infiltrates seen on XRAY and an increase in respiratory secretions Sputum culture ordered - results pending PRN Nasotracheal suctioning by RT Empiric antibiotic coverage for community acquired PNA in COPD patient - Levaquin 750mg IV daily (5) Alcohol withdrawal Qualifiers: Complication of substance-induced condition: with unspecified complication Qualified Code(s): F10.239 - Alcohol dependence with withdrawal, unspecified Is this a current diagnosis for this admission?: Yes Plan: The patient reportedly drinks 1.5 bottles of wine daily and abruptly stopped drinking alcohol about 7 days ago. Per family members, the patient has had very little intake over the last 7 days with near continuous loose stools. No known history of alcohol withdrawal seizure. The patient is placed on fall, seizure, aspiration precautions. We will continue IV maintenance fluids. Continue scheduled PO valium. We will provide as needed IV Ativan for anxiety, agitation, and withdrawal symptoms. Antiemetics as needed. Banana bag nightly. Discharge planning is consulted. (6) Type 2 diabetes mellitus Qualifiers: Diabetes mellitus custodial insulin use: without extermination inspector use Is this a current diagnosis for this admission?: No Plan: The patient is placed on a consistent carb/clear liquid diet. We will check Accu-Cheks before meals and at bedtime and provide Humalog sliding scale coverage. Hypoglycemia protocols in place. (7) Gastroenteritis Is this a current diagnosis for this admission?: Yes Plan: Alcoholic gastroenteritis with report of melena. Continue IV fluids. As needed antiemetics. When possible, obtain stool for culture to rule out additional causes as well as to test for blood. Continue IV Protonix twice daily; holding DVT prophylaxis and aspirin pending fecal occult stool. Due to leukocytosis and acute abdomen xray showing moderately dilated colon, the patient is placed on renally dosed IV Cipro and metronidazole. (8) Hyperlipidemia Is this a current diagnosis for this admission?: No Plan: History of HLD Resume home dose atorvastatin (9) COPD (chronic obstructive pulmonary disease) Is this a current diagnosis for this admission?: No Plan: History of COPD; stable and without exacerbation at this time. Reportedly, the patient was recently treated with azithromycin and a steroid pack. Provide supplemental oxygen as needed to maintain oxygen saturations greater than 88%. As needed nebulizer treatments are available. No indication for steroids at this time. (10) Hypokalemia Is this a current diagnosis for this admission?: Yes Plan: Secondary to poor PO intake and overall malnutrition Replacement with IV KCL Continue to trend daily chemistries (11) Hyponatremia Is this a current diagnosis for this admission?: Yes Plan: Secondary to poor PO intake, dehydration and overall malnutrition Free water restriction, continue maintenance IVF Continue to trend daily chemistries - Time Time Spent with patient: 15-24 minutes Medications reviewed and adjusted accordingly: Yes Anticipated discharge: Acute Rehab - Inpatient Certification Based on my medical assessment, after consideration of the patient's comorbidities, presenting symptoms, or acuity I expect that the services needed warrant INPATIENT care.: Yes I certify that my determination is in accordance with my understanding of Medicare's requirements for reasonable and necessary INPATIENT services [42 CFR 412.3e].: Yes Medical Necessity: Need For IV Fluids, Need for IV Antibiotics, Risk of Complication if Not Cared For in Hospital - Plan Summary Plan Summary: PLAN TO DISCUSS CODE STATUS WITH FAMILY. CONTINUE IV ANTIBIOTICS AND HYDRATION. OBSERVE FOR ETOH WITHDRAWAL.
[2018-02-18] MEDS: NORMAL SALINE 1000 ML 1,000 ML IV PRN (18:48)
[2018-02-18] MEDS: NORMAL SALINE 1000 ML 1,000 ML with POTASSIUM CHLORIDE 20 MEQ, MAGNESIUM SULFATE 8 MEQ,... IV SCH ×5 (21:51)
[2018-02-19] MEDS: LORAZEPAM INJ 2 MG/1 ML VIAL IV PRN ×5 (00:45→21:00)
[2018-02-19] MEDS: METRONIDAZOLE 500 MG/NS RTU 500 MG/100 ML RTUPB IV SCH ×4 (04:20→21:00)
[2018-02-19 05:12] LABS: HEMATOCRIT 27.5 % (37.9-51.0); HEMOGLOBIN 9.4 g/dL (13.5-17.0); MEAN CORPUSCULAR HEMOGLOBIN 34.6 pg (27.0-33.4); MEAN CORPUSCULAR HGB CONC 34.2 g/dL (32.0-36.0); MEAN CORPUSCULAR VOLUME 101 fl (80-97); PLATELET COUNT 194 10^3/uL (150-450); RED BLOOD COUNT 2.72 10^6/uL (4.35-5.55); RED CELL DISTRIBUTION WIDTH 14.9 % (11.5-14.0); WHITE BLOOD COUNT 6.3 10^3/uL (4.0-10.5)
[2018-02-19 05:20] LABS: ANION GAP 9 (5-19); CALCIUM 8.5 mg/dL (8.4-10.2); CARBON DIOXIDE 21 mmol/L (22-30); CHLORIDE 119 mmol/L (98-107); GLUCOSE 119 mg/dL (75-110); PHOSPHORUS 1.8 mg/dL (2.5-4.5); POTASSIUM 3.9 mmol/L (3.6-5.0); SODIUM 148.6 mmol/L (137-145)
[2018-02-19 05:36] LABS: BLOOD UREA NITROGEN 30 mg/dL (7-20)
[2018-02-19 08:41] LABS: ALANINE AMINOTRANSFERASE 34 U/L (21-72); ALBUMIN 2.8 g/dL (3.5-5.0); ALKALINE PHOSPHATASE 52 U/L (38-126); ASPARTATE AMINO TRANSFERASE 36 U/L (17-59); BILIRUBIN,DIRECT 0.3 mg/dL (0.0-0.4); BILIRUBIN,TOTAL 0.6 mg/dL (0.2-1.3); TOTAL PROTEIN 5.5 g/dL (6.3-8.2)
[2018-02-19] MEDS: PANTOPRAZOLE SODIUM 40 MG VIAL IV SCH (11:26)
[2018-02-19] MEDS: LEVOFLOXACIN 750 MG/D5W RTU 750 MG/150 ML RTUPB IV SCH (11:27)
[2018-02-19] MEDS: NORMAL SALINE 1000 ML 1,000 ML IV PRN (11:28)
[2018-02-19] MEDS: NORMAL SALINE 1000 ML 1,000 ML with POTASSIUM CHLORIDE 20 MEQ, MAGNESIUM SULFATE 8 MEQ,... IV SCH ×5 (18:13)
--- NOTE | 2018-02-19 18:27 | PDOC PROGRESS REPORT ---
Subjective Progress Note for:: 02/19/18 Subjective:: 83 y.o. M admitted to [facility] with a chief complaint of weakness. PMH includes COPD , DM, HLD, and chronic ETOH use. Patient's family reports that he drinks 1.5 bottles of wine per day. He stopped drinking 1 week prior to admission. Proceeded to develop diarrhea and significant weakness. The patient was seen this morning on rounds. He was asleep, but arousable to tactile stimuli. He would open his eyes to command and is able to answer simple yes/no questions. Patient remains in AFIB with occasional PVCs. Upon auscultation, lung sounds are clear, there is mild upper airway congestion - RT has been preforming NT suction. The patient is able to maintain SPO2>88% on room air. Lengthy discussion with patient's yesterday. She was informed that the patient is continuously failing bedside swallow evaluations due to his significant encephalopathy. At the present time, he has gone 3 +days without food. Discussed the need for nasogastric tube and enteral feeding. Additionally, discussed the patient's generalized weakness and inability to safely get out of bed, and the likelihood that he will require placement at an acute rehab/SNF post discharge. states that the patient discussed his wishes with her in the past, and he did not want to be placed in a assisted nor did he want any type of feeding tube. The patient's states that she is not prepared to place the patient under palliative care at this time. She wishes to pursue all available/possible medical treatment. Reason For Visit: ACUTE RENAL FAILURE, DEHYDRATION, HYPONATREMIA Physical Exam Vital Signs: Temp Pulse Resp BP Pulse Ox 98.7 F 97 20 151/79 H 90 L 02/19/18 15:28 02/19/18 15:28 02/19/18 15:28 02/19/18 15:28 02/19/18 15:28 Intake & Output 02/18/18 02/19/18 02/20/18 06:59 06:59 06:59 Intake Total 2233 1612 1273 Balance 2233 1612 1273 Weight 68.8 kg 71.3 kg General appearance: PRESENT: thin Head exam: PRESENT: atraumatic Eye exam: PRESENT: conjunctiva pink, PERRLA Mouth exam: PRESENT: moist Teeth exam: PRESENT: poor dentation Neck exam: PRESENT: full ROM Respiratory exam: PRESENT: clear to auscultation tanvi, symmetrical, unlabored, other - mild upper airway sections, able to be NT suctioned by RT. Patient unable to clear his own upper airway secretions Cardiovascular exam: PRESENT: irregular rhythm - AFIB Pulses: PRESENT: normal radial pulses, normal dorsalis pedis pul GI/Abdominal exam: PRESENT: normal bowel sounds, soft. ABSENT: tenderness Rectal exam: PRESENT: deferred Extremities exam: ABSENT: full ROM, joint swelling, pedal edema Musculoskeletal exam: ABSENT: ambulatory - Unable to get out of bed even with 2 person assist, full ROM Neurological exam: PRESENT: awake. ABSENT: oriented to person, oriented to place, oriented to time, oriented to situation, normal gait Psychiatric exam: PRESENT: appropriate affect Skin exam: PRESENT: dry, intact, normal color, warm Results Laboratory Results: 02/19/18 04:15 02/19/18 04:15 02/19/18 02/19/18 02/19/18 04:15 04:15 04:15 WBC 6.3 RBC 2.72 L Hgb 9.4 L Hct 27.5 L MCV 101 H MCH 34.6 H MCHC 34.2 RDW 14.9 H Plt Count 194 Sodium 148.6 H Potassium 3.9 Chloride 119 H Carbon Dioxide 21 L Anion Gap 9 BUN 30 H D Creatinine 0.78 Est GFR ( Amer) > 60 Est GFR (Non-Af Amer) > 60 Glucose 119 H Calcium 8.5 Phosphorus 1.8 L Magnesium 2.0 Total Bilirubin 0.6 AST 36 ALT 34 Alkaline Phosphatase 52 Total Protein 5.5 L Albumin 2.8 L 02/16/18 02/16/18 02/17/18 17:14 21:45 03:42 Troponin I 0.048 0.055 0.061 NT-Pro-B Natriuret Pep 02/17/18 02/18/18 15:44 05:16 Troponin I 0.061 NT-Pro-B Natriuret Pep 1810 H Impressions: Acute Abdomen Series 02/16/18 09:20 IMPRESSION: 1 Stable examination of the chest since the prior study dated 05/22. 2. Mild to moderate dilated colonic loops, non-obstructive pattern. 3. Prior endovascular stent graft repair for abdominal aortic aneurysm. Chest X-Ray 07/24/18 00:00 IMPRESSION: COPD. Bibasilar atelectasis or infiltrate significantly greater on the right. Status: Imported from PACS Assessment & Plan - Diagnosis (1) Acute renal failure (ARF) Qualifiers: Acute renal failure type: unspecified Qualified Code(s): N17.9 - Acute kidney failure, unspecified Is this a current diagnosis for this admission?: Yes Plan: Resolved. Cr 0.78 today Acute renal failure; prerenal secondary to dehydration. Unknown baseline creatinine as previous laboratory evaluation is from 2010 and family are unaware of his current medical history. The patient is found to have a BUN of 133, creatinine 2.29, GFR 28. Currently unable to tolerate PO intake due to significant encephalopathy He is placed on IV fluids. Antiemetics as needed Avoid nephrotoxic medications as able. Renally dosed antibiotics. We will monitor serial chemistries. (2) Dehydration Is this a current diagnosis for this admission?: Yes Plan: plan as above (3) Atrial fibrillation Qualifiers: Atrial fibrillation type: unspecified Qualified Code(s): I48.91 - Unspecified atrial fibrillation Is this a current diagnosis for this admission?: Yes Plan: Atrial fibrillation; family admittedly does not know his medical history well. He is currently rate controlled in the 80s. No heart murmurs are auscultated. ECHOcardiogram completed Due to family report of melena, holding aspirin and anticoagulant therapy pending evaluation. (4) PNA (pneumonia) Is this a current diagnosis for this admission?: Yes Plan: As evidence by infiltrates seen on XRAY and an increase in respiratory secretions Sputum culture ordered - results pending PRN Nasotracheal suctioning by RT Empiric antibiotic coverage for community acquired PNA in COPD patient - Levaquin 750mg IV daily (5) Alcohol withdrawal Qualifiers: Complication of substance-induced condition: with unspecified complication Qualified Code(s): F10.239 - Alcohol dependence with withdrawal, unspecified Is this a current diagnosis for this admission?: Yes Plan: The patient reportedly drinks 1.5 bottles of wine daily and abruptly stopped drinking alcohol about 7 days ago. Per family members, the patient has had very little intake during the 7 days prior to admission with near continuous loose stools. No known history of alcohol withdrawal seizure. The patient is placed on fall, seizure, aspiration precautions. We will continue IV maintenance fluids. Continue scheduled PO valium. We will provide as needed IV Ativan for anxiety, agitation, and withdrawal symptoms. Antiemetics as needed. Banana bag nightly. Discharge planning is consulted. (6) Type 2 diabetes mellitus Qualifiers: Diabetes mellitus fci insulin use: without fci use Is this a current diagnosis for this admission?: No Plan: The patient is placed on a consistent carb/clear liquid diet. We will check Accu-Cheks before meals and at bedtime and provide Humalog sliding scale coverage. Hypoglycemia protocols in place. (7) Gastroenteritis Is this a current diagnosis for this admission?: Yes Plan: Alcoholic gastroenteritis with report of melena. Continue IV fluids. As needed antiemetics. When possible, obtain stool for culture to rule out additional causes as well as to test for blood. Continue IV Protonix twice daily; holding DVT prophylaxis and aspirin pending fecal occult stool. Due to leukocytosis and acute abdomen xray showing moderately dilated colon, the patient is placed on renally dosed IV Cipro and metronidazole. (8) Hyperlipidemia Is this a current diagnosis for this admission?: No Plan: History of HLD Resume home dose atorvastatin (9) COPD (chronic obstructive pulmonary disease) Is this a current diagnosis for this admission?: No Plan: History of COPD; stable and without exacerbation at this time. Reportedly, the patient was recently treated with azithromycin and a steroid pack. Provide supplemental oxygen as needed to maintain oxygen saturations greater than 88%. As needed nebulizer treatments are available. No indication for steroids at this time. (10) Hypokalemia Is this a current diagnosis for this admission?: Yes Plan: Resolved. Secondary to poor PO intake and overall malnutrition Replacement with IV KCL Continue to trend daily chemistries (11) Hypernatremia Is this a current diagnosis for this admission?: Yes Plan: Secondary to dehydration. Continue maintenance IVF (12) Full code status Is this a current diagnosis for this admission?: Yes Plan: Discussed plan of care and CODE STATUS with patient's . She wishes to pursue all available medical treatment at this time. Patient will remain full code. - Time Time Spent with patient: 15-24 minutes Medications reviewed and adjusted accordingly: Yes Anticipated discharge: SNF, Acute Rehab - Inpatient Certification Based on my medical assessment, after consideration of the patient's comorbidities, presenting symptoms, or acuity I expect that the services needed warrant INPATIENT care.: Yes I certify that my determination is in accordance with my understanding of Medicare's requirements for reasonable and necessary INPATIENT services [42 CFR 412.3e].: Yes Medical Necessity: Need For IV Fluids, Risk of Complication if Not Cared For in Hospital - Plan Summary Plan Summary: Continue EtOH withdrawal treatment. Continue IV antibiotics. Consider NG tube placement tomorrow if patient does not improve.
[2018-02-20] MEDS: LORAZEPAM INJ 2 MG/1 ML VIAL IV PRN ×6 (00:16→13:31)
[2018-02-20] MEDS: METRONIDAZOLE 500 MG/NS RTU 500 MG/100 ML RTUPB IV SCH ×4 (03:42→21:55)
[2018-02-20 05:08] LABS: HEMATOCRIT 29.6 % (37.9-51.0); HEMOGLOBIN 10.5 g/dL (13.5-17.0); MEAN CORPUSCULAR HGB CONC 35.3 g/dL (32.0-36.0); MEAN CORPUSCULAR VOLUME 102 fl (80-97); PLATELET COUNT 212 10^3/uL (150-450); RED BLOOD COUNT 2.91 10^6/uL (4.35-5.55); RED CELL DISTRIBUTION WIDTH 15.2 % (11.5-14.0); WHITE BLOOD COUNT 7.7 10^3/uL (4.0-10.5)
[2018-02-20 05:34] LABS: ANION GAP 14 (5-19); BLOOD UREA NITROGEN 20 mg/dL (7-20); CALCIUM 8.5 mg/dL (8.4-10.2); CARBON DIOXIDE 18 mmol/L (22-30); CHLORIDE 121 mmol/L (98-107); GLUCOSE 117 mg/dL (75-110); PHOSPHORUS 2.2 mg/dL (2.5-4.5); POTASSIUM 3.7 mmol/L (3.6-5.0); SODIUM 152.5 mmol/L (137-145)
[2018-02-20] MEDS ORDERED: RINGERS SOLUTION,LACTATED 1,000 ML IV PRN (06:56)
[2018-02-20] MEDS ORDERED: PHARMACY COMMUNICATION ORDER MC NR (08:45)
--- NOTE | 2018-02-20 09:17 | EKG REPORT ---
SEVERITY:- ABNORMAL ECG - ATRIAL FIBRILLATION MULTIFORM VENTRICULAR PREMATURE COMPLEXES RIGHT BUNDLE BRANCH BLOCK : Confirmed by: Jamila Graves MD 20-Feb-2018 09:16:10
--- NOTE | 2018-02-20 09:32 | RADIOLOGY REPORT (SQ) ---
EXAM DESCRIPTION: CT HEAD WITHOUT COMPLETED DATE/TIME: 02/20/2018 9:22 am REASON FOR STUDY: ALTERED MENTAL STATUS COMPARISON: 12/08/2010 TECHNIQUE: Axial images acquired through the brain without intravenous contrast. Images reviewed wi th bone, brain and subdural windows. Images stored on PACS. All CT scanners at this facility use dose modulation, iterative reconstruction, and/or weight based d osing when appropriate to reduce radiation dose to as low as reasonably achievable (ALARA). [facility]: Dose Right [facility]: CareDose [facility]: Dose Right [facility]: Teradose 4D [facility]: [employer] RADIATION DOSE: CT Rad equipment meets quality standard of care and radiation dose reduction techniq ues were employed. CTDIvol: 48.7 - 50.0 mGy. DLP: 2086 mGy-cm.mGy. LIMITATIONS: None. FINDINGS: VENTRICLES: Prominent. CEREBRUM: No masses. No hemorrhage. No midline shift. Areas of low density in the white matter mos t likely due to chronic micro-vascular ischemic change. No evidence for acute infarction. CEREBELLUM: No masses. No hemorrhage. No alteration of density. No evidence for acute infarction. EXTRAAXIAL SPACES: Age-related involutional change. No fluid collections. No masses. ORBITS AND GLOBE: No intra- or extraconal masses. Normal contour of globe without masses. CALVARIUM: No fracture. PARANASAL SINUSES: No fluid or mucosal thickening. SOFT TISSUES: No mass or hematoma. OTHER: No other significant finding. IMPRESSION: CHRONIC CHANGES OF ATROPHY AND MICROVASCULAR ISCHEMIA. NO ACUTE PROCESS. EVIDENCE OF ACUTE STROKE: NO. TECHNICAL DOCUMENTATION: JOB ID: [id number] Quality ID # [id number]: Final reports with documentation of one or more dose reduction techniques (e.g., Au tomated exposure control, adjustment of the mA and/or kV according to patient size, use of iterative reconstruction technique) 2010 [employer]- All Rights Reserved Reading location - IP/workstation name: [email or web address]
--- NOTE | 2018-02-20 09:50 | RADIOLOGY REPORT (SQ) ---
EXAM DESCRIPTION: CHEST SINGLE VIEW COMPLETED DATE/TIME: 02/20/2018 9:37 am REASON FOR STUDY: [place] COMPARISON: 02/17/2018 EXAM PARAMETERS: NUMBER OF VIEWS: One view. TECHNIQUE: Single frontal radiographic view of the chest acquired. RADIATION DOSE: NA LIMITATIONS: None. FINDINGS: LUNGS AND PLEURA: Slight increased basilar opacity on the right compared to the left. No pneumothorax. MEDIASTINUM AND HILAR STRUCTURES: No masses. Contour normal. HEART AND VASCULAR STRUCTURES: Heart normal in size. Normal vasculature. BONES: No acute findings. HARDWARE: None in the chest. OTHER: No other significant finding. IMPRESSION: Slight increased basilar opacity on the right. No pneumothorax. No overt failure. TECHNICAL DOCUMENTATION: JOB ID: [id number] [employer]- All Rights Reserved Reading location - IP/workstation name: [email or web address]
--- NOTE | 2018-02-20 09:56 | RADIOLOGY REPORT (SQ) ---
EXAM DESCRIPTION: KUB/ABDOMEN (SINGLE VIEW) COMPLETED DATE/TIME: 02/20/2018 9:37 am REASON FOR STUDY: Check Placement of NG Tube COMPARISON: 02/16/2018. FINDINGS: Single image of the abdomen obtained. No nasogastric tube identified in the field of view. Nonobstructive bowel gas pattern generally. IMPRESSION: No nasogastric tube identified along the lower chest or in the abdomen. TECHNICAL DOCUMENTATION: JOB ID: [id number] Reading location - IP/workstation name: [email or web address]
[2018-02-20] MEDS: DEXTROSE 5%-1/2 NORMAL SALINE 1,000 ML IV PRN (10:10)
[2018-02-20] MEDS ORDERED: MAGNESIUM SULFATE/D5W 1 GM/100 ML RTUPB IV ONE (10:30)
[2018-02-20] MEDS ORDERED: POTASSI CL 20 MEQ/50 ML RIDER 20 MEQ/50 ML RTUPB IV ONE (10:30)
[2018-02-20] MEDS: TIOTROPIUM BROMIDE DPI 5 CAP/KIT (18 MCG/CAP) IH SCH (11:19)
[2018-02-20] MEDS: SALMETEROL XINAFOATE DISKUS 50 MCG/1 DOSE 28 DOSE IH SCH ×2 (11:19→22:49)
[2018-02-20] MEDS: LEVOFLOXACIN 750 MG/D5W RTU 750 MG/150 ML RTUPB IV SCH (11:34)
--- NOTE | 2018-02-20 11:58 | RADIOLOGY REPORT (SQ) ---
EXAM DESCRIPTION: KUB/ABDOMEN (SINGLE VIEW) COMPLETED DATE/TIME: 02/20/2018 11:34 am REASON FOR STUDY: ng tube placement COMPARISON: 02/20/2018 earlier. FINDINGS: Single view of the abdomen including the lower chest. Somewhat limiting overlying artifact. Nasogastric tube is seen to the level of the distal esophagus but does not course into the upper abdo men. Otherwise stable exam. IMPRESSION: Nasogastric tube with tip in the distal esophagus. If attempts to advance the nasogastr ic tube remain unsuccessful, further chest CT imaging may be warranted to assess anatomy. It is poss ible the patient has a large gastric hernia or volvulus or other obstructing lesion. TECHNICAL DOCUMENTATION: JOB ID: [id number] Reading location - IP/workstation name: [email or web address]
[2018-02-20] MEDS ORDERED: DIAZEPAM 2 MG TABLET PO PRN (13:30)
[2018-02-20] MEDS ORDERED: LORAZEPAM INJ 2 MG/1 ML VIAL IV ONE (14:30)
--- NOTE | 2018-02-20 15:52 | RADIOLOGY REPORT (SQ) ---
EXAM DESCRIPTION: KUB/ABDOMEN (SINGLE VIEW) COMPLETED DATE/TIME: 02/20/2018 3:27 pm REASON FOR STUDY: confirm ng tube placement, pulled first out COMPARISON: 02/20/2018 1121 hours TECHNIQUE: AP chest abdomen for tube placement LIMITATIONS: None. FINDINGS: Nasogastric tube is in the stomach. IMPRESSION: Nasogastric tube is in the stomach. TECHNICAL DOCUMENTATION: JOB ID: [id number] [employer]- All Rights Reserved Reading location - IP/workstation name: [email or web address]
[2018-02-20] MEDS ORDERED: DIAZEPAM 2 MG TABLET PO ONE (16:07)
--- NOTE | 2018-02-20 17:05 | PDOC PROGRESS REPORT ---
Subjective Progress Note for:: 02/20/18 Subjective:: 83 y.o. M admitted to [facility] with a chief complaint of weakness. PMH includes COPD , DM, HLD, and chronic ETOH use. Patient's family reports that he drinks 1.5 bottles of wine per day. He stopped drinking 1 week prior to admission. Proceeded to develop diarrhea and significant weakness. The patient was seen this morning on rounds. His and daughter are at the bedside. He was asleep, minimally arousable to tactile stimuli. He is not following commands and is only mumbling when asked simple yes/no questions. Patient remains in AFIB with frequent PVCs, HR has increased to 100-125. Upon auscultation, rhonci is heard over the RML and RLL, there is also mild upper airway congestion - RT has been preforming NT suction. The patient is able to maintain SPO2>88% on supplemental oxygen. Given his worsening neuro exam, VS and respiratory status, plan for head CT, CXR , and EKG. Cardiology consulted, appreciate their recommendations. Discussed patient's status with the . In addition to his overall poor health, the patient is currently unable to tolerate PO. The states she wants to pursue a feeding tube. Plan for NG tube placement today and initiation of enteral feeding. Reason For Visit: ACUTE RENAL FAILURE, DEHYDRATION, HYPONATREMIA Physical Exam Vital Signs: Temp Pulse Resp BP Pulse Ox 97.8 F 101 H 20 149/93 H 93 02/20/18 08:00 02/20/18 08:00 02/20/18 08:00 02/20/18 08:00 02/20/18 08:00 Intake & Output 02/19/18 02/20/18 02/21/18 06:59 06:59 06:59 Intake Total 1612 2596 Balance 1612 2596 Weight 71.3 kg 70.9 kg General appearance: PRESENT: no acute distress, thin Head exam: PRESENT: atraumatic Eye exam: PRESENT: conjunctiva pink, PERRLA Mouth exam: PRESENT: moist Teeth exam: PRESENT: poor dentation Neck exam: PRESENT: full ROM Respiratory exam: PRESENT: rhonchi, symmetrical, tachypnea Cardiovascular exam: PRESENT: irregular rhythm - AFIB. FREQUENT PVCs Pulses: PRESENT: normal radial pulses, normal dorsalis pedis pul GI/Abdominal exam: PRESENT: normal bowel sounds, soft. ABSENT: tenderness Rectal exam: PRESENT: deferred Extremities exam: ABSENT: full ROM, pedal edema Musculoskeletal exam: ABSENT: ambulatory - PT EVALUATION - UNSAFE TO GET OOB, EVEN WITH 2 PERSON ASSIST, full ROM Neurological exam: ABSENT: alert, awake, oriented to person, oriented to place, oriented to time, oriented to situation Skin exam: PRESENT: dry, intact, warm Results Laboratory Results: 02/20/18 04:29 02/20/18 04:29 02/20/18 02/20/18 04:29 04:29 WBC 7.7 RBC 2.91 L Hgb 10.5 L Hct 29.6 L MCV 102 H MCH 36.0 H MCHC 35.3 RDW 15.2 H Plt Count 212 Sodium 152.5 H Potassium 3.7 Chloride 121 H Carbon Dioxide 18 L Anion Gap 14 BUN 20 Creatinine 0.68 Est GFR ( Amer) > 60 Est GFR (Non-Af Amer) > 60 Glucose 117 H Calcium 8.5 Phosphorus 2.2 L Magnesium 1.8 02/16/18 02/16/18 02/17/18 17:14 21:45 03:42 Troponin I 0.048 0.055 0.061 NT-Pro-B Natriuret Pep 02/17/18 02/18/18 15:44 05:16 Troponin I 0.061 NT-Pro-B Natriuret Pep 1810 H Impressions: Acute Abdomen Series 02/16/18 09:20 IMPRESSION: 1 Stable examination of the chest since the prior study dated 05/22. 2. Mild to moderate dilated colonic loops, non-obstructive pattern. 3. Prior endovascular stent graft repair for abdominal aortic aneurysm. Chest X-Ray 02/20/18 00:00 IMPRESSION: Slight increased basilar opacity on the right. No pneumothorax. No overt failure. Head CT 02/20/18 00:00 IMPRESSION: CHRONIC CHANGES OF ATROPHY AND MICROVASCULAR ISCHEMIA. NO ACUTE PROCESS. EVIDENCE OF ACUTE STROKE: NO. KUB X-Ray 02/20/18 08:33 IMPRESSION: No nasogastric tube identified along the lower chest or in the abdomen. Status: Imported from PACS Assessment & Plan - Diagnosis (1) Acute renal failure (ARF) Qualifiers: Acute renal failure type: unspecified Qualified Code(s): N17.9 - Acute kidney failure, unspecified Is this a current diagnosis for this admission?: Yes Plan: Resolved. Cr now within normal limits Prerenal ARF secondary to dehydration. Unknown baseline. Initial BUN 133, creatinine 2.29, GFR 28 Currently unable to tolerate PO intake due to significant encephalopathy Continue IV fluids. Antiemetics as needed Avoid nephrotoxic medications as able. Renally dosed antibiotics. We will monitor serial chemistries. (2) Dehydration Is this a current diagnosis for this admission?: Yes Plan: plan as above (3) Encephalopathy Is this a current diagnosis for this admission?: Yes Plan: Secondary to alcohol withdrawal, infection (PNA) and overall malnutrition, Worsening neuro exam today: minimally responsive, not following commands, mumbling and groaning Head CT negative Initiate p.o. Valium for alcohol withdrawal PRN IV Ativan for alcohol withdrawal Daily thiamine and folate IV antibiotics for bilateral pneumonia Initiate enteral feeding now that NG tube is in place (4) Atrial fibrillation Qualifiers: Atrial fibrillation type: unspecified Qualified Code(s): I48.91 - Unspecified atrial fibrillation Is this a current diagnosis for this admission?: Yes Plan: Atrial fibrillation; family admittedly does not know his medical history well. Rate is not controlled today, up to 120-130s when agitated. EKG this morning shows AFIB with multiform PVCs No heart murmurs are auscultated. ECHOcardiogram completed, normal LVEF, no other significant findings Due to family report of melena, holding aspirin and anticoagulant therapy pending evaluation. Consulted cardiology, they recommend Lopressor 25mg PO q8hr (5) PNA (pneumonia) Is this a current diagnosis for this admission?: Yes Plan: As evidence by infiltrates seen on XRAY and an increase in respiratory secretions Sputum culture ordered - results pending PRN Nasotracheal suctioning by RT CXR today shows worsening PNA, particularly R infiltrate. Plan to expand antibiotic coverage to Cefepime and Vancomycin (6) Alcohol withdrawal Qualifiers: Complication of substance-induced condition: with unspecified complication Qualified Code(s): F10.239 - Alcohol dependence with withdrawal, unspecified Is this a current diagnosis for this admission?: Yes Plan: The patient reportedly drinks 1.5 bottles of wine daily and abruptly stopped drinking alcohol about 7 days ago. Per family members, the patient has had very little intake during the 7 days prior to admission with near continuous loose stools. No known history of alcohol withdrawal seizure. The patient is placed on fall, seizure, aspiration precautions. We will continue IV maintenance fluids. Initiate scheduled PO valium after NG tube placement PRN IV Ativan for anxiety, agitation, and withdrawal symptoms. Antiemetics as needed. Daily thiamine and folate Discharge planning is consulted. Patient will likely require acute rehab or SNF following hospitalization (7) Type 2 diabetes mellitus Qualifiers: Diabetes mellitus telemetry nurse insulin use: without telemetry nurse use Is this a current diagnosis for this admission?: No Plan: Accu-Cheks before meals and at bedtime and provide Humalog sliding scale coverage. Hypoglycemia protocols in place. Initiate glucerna enteral feeding after NG tube placement (8) Gastroenteritis Is this a current diagnosis for this admission?: Yes Plan: Alcoholic gastroenteritis with report of melena. Continue IV fluids. As needed antiemetics. When possible, obtain stool for culture to rule out additional causes as well as to test for blood. Continue IV Protonix twice daily; holding DVT prophylaxis and aspirin pending fecal occult stool. Due to leukocytosis and acute abdomen xray showing moderately dilated colon, the patient is on day 4 of renally dosed IV Levofloxacin (double coverage for PNA) and metronidazole. (9) Hyperlipidemia Is this a current diagnosis for this admission?: No Plan: History of HLD Resume home dose atorvastatin once NG tube in place (10) COPD (chronic obstructive pulmonary disease) Is this a current diagnosis for this admission?: No Plan: History of COPD; stable and without exacerbation at this time. Reportedly, the patient was recently treated with azithromycin and a steroid pack for COPD exacerbation. Supplemental oxygen as needed to maintain SPO2 greater than 88%. As needed nebulizer treatments are available. No indication for steroids at this time. (11) Hypokalemia Is this a current diagnosis for this admission?: Yes Plan: Resolved. Secondary to poor PO intake and overall malnutrition Replacement with IV KCL Continue to trend daily chemistries (12) Hypernatremia Is this a current diagnosis for this admission?: Yes Plan: Secondary to dehydration Na 152 Serum Osm 325 Change IVF from NS to D51/2NS (13) Nutritional deficiency Is this a current diagnosis for this admission?: Yes Plan: Secondary to significant encephalopathy due to ETOH withdrawal and PNA Plan for NG tube placement today Initiate enteral feeding Requested thermostat mechanic consult for proper enteral feeding recommendations (14) Full code status Is this a current diagnosis for this admission?: Yes Plan: Discussed plan of care and CODE STATUS with patient's . She wishes to pursue all available medical treatment at this time. Patient will remain full code. - Time Time Spent with patient: 15-24 minutes Medications reviewed and adjusted accordingly: Yes Anticipated discharge: SNF, Acute Rehab - Inpatient Certification Based on my medical assessment, after consideration of the patient's comorbidities, presenting symptoms, or acuity I expect that the services needed warrant INPATIENT care.: Yes I certify that my determination is in accordance with my understanding of Medicare's requirements for reasonable and necessary INPATIENT services [42 CFR 412.3e].: Yes Medical Necessity: Need For IV Fluids, Need for IV Antibiotics, Risk of Complication if Not Cared For in Hospital - Plan Summary Plan Summary: STAT EKG, HEAD CT, CXR. CARDIOLOGY C/S. NG TUBE PLACEMENT. INITIATE ENTERAL FEEDING.
[2018-02-20] MEDS: METOPROLOL TARTRATE 25 MG TABLET NG SCH ×2 (17:11→22:49)
[2018-02-20] MEDS ORDERED: VANCOMYCIN HCL 0 MG in DEXTROSE 5%-WATER 250 ML IV NR (17:15)
--- NOTE | 2018-02-20 20:03 | PDOC CONSULTATION ---
Consultation Consult Date: 02/20/18 Attending physician:: CHAPO HUANG Consult reason:: Cardiac dysrhythmia History of Present Illness Admission Date/PCP: 02/16/18 14:57 CHEMA FERNANDEZ MD History of Present Illness: AZEB GOMES JR is a 83 year old male with a limited past medical history, due to the patient's mental status and family's unawareness, but known to have COPD, type 2 diabetes mellitus, hyperlipidemia, and alcohol abuse alcohol abuse who presents to the emergency department today with a complaint of increased fatigue, generalized weakness, and diarrhea for the last 5-7 days after the patient abruptly stopped drinking alcohol. Per the family the patient drinks 1- 2 bottles of wine daily. The son believes that the patient was being treated for a COPD exacerbation which prompted him to stop drinking. They deny any seizure-like activity over the course of the previous week and do not believe that the patient has a history of alcohol withdrawal related seizures. Evaluation in the emergency department reveals tachypnea (respiration rate 23) and otherwise normal vital signs, leukocytosis (WBCs 17.3), mild anemia, Hyponatremia (sodium 131.8) a low bicarb (15) and acute renal failure with a BUN of 133 and creatinine of 2.29. His LFTs were benign, ammonia less than 8.7. Initial troponin was indeterminately elevated at 0.051 and a proBNP was elevated at 1960. Urinalysis was negative for UTI. EKG revealed atrial fibrillation, which per family members is new to the patient. An acute abdomen series was negative for acute cardiopulmonary findings, demonstrated mild to moderate dilated colonic loops in a nonobstructive pattern, and prior endovascular stent graft for repair of AAA. He is referred to the hospitalist service for admission and management of acute renal failure secondary to dehydration in the setting of alcohol withdrawal. This history obtained by the hospitalist was reviewed. When seen this morning, patient was agitated and in restraints. He just could not give any more history. I was consulted to evaluate cardiac dysrhythmia on the monitor. Past Medical History Cardiac Medical History: Reports: Atrial Fibrillation Denies: Congestive Heart Failure, Coronary Artery Disease, Myocardial Infarction Pulmonary Medical History: Reports: Chronic Obstructive Pulmonary Disease (COPD) , Pneumonia Neurological Medical History: Reports: None Endocrine Medical History: Reports: Diabetes Mellitus Type 2 Renal/ Medical History: Reports: None Malignancy Medical History: Reports: Skin Cancer GI Medical History: Reports: None Musculoskeltal Medical History: Reports: None Skin Medical History: Reports: None Psychiatric Medical History: Reports: Alcohol Dependency Denies: Tobacco Dependency Traumatic Medical History: Reports: None Hematology: Reports: None Infectious Medical History: Reports: None Past Surgical History Past Surgical History: Reports: Other - Endovascular graft AAA Social History Lives with: Family Smoking Status: Former Smoker Frequency of Alcohol Use: Heavy Hx Recreational Drug Use: No Drugs: None Hx Prescription Drug Abuse: No - Advance Directive Resuscitation Status: Full Code Surrogate healthcare decision maker:: Patient's Dede is surrogate decision-maker Family History Family History: Reviewed & Not Pertinent Parental Family History Reviewed: No Children Family History Reviewed: No Sibling(s) Family History Reviewed.: No Medication/Allergy Home Medications: Albuterol Sulfate [Ventolin Hfa] 1 - 2 puff IH Q4 PRN 02/16/18 Atorvastatin Calcium [Lipitor 40 mg Tablet] 40 mg PO QHS 02/16/18 Escitalopram Oxalate [Lexapro 10 mg Tablet] 10 mg PO DAILY 02/16/18 Metformin HCl [Metformin HCl ER] 500 mg PO BID 02/16/18 Telmisartan/Hydrochlorothiazid [Telmisartan-Hctz 80-12.5 mg Tb] 1 each PO DAILY 02/16/18 Tiotropium Br/Olodaterol HCl [Stiolto Respimat Inhal [place]] 4 gm IH DAILY Allergies/Adverse Reactions: No Known Allergies Allergy (Verified 02/16/18 08:47) Review of Systems ROS unobtainable: Due to mental status Physical Exam Vital Signs: Temp Pulse Resp BP Pulse Ox 97.3 F 60 20 89/63 L 95 02/20/18 15:25 02/20/18 15:25 02/20/18 11:35 02/20/18 15:25 02/20/18 15:25 Intake & Output 02/19/18 02/20/18 02/21/18 06:59 06:59 06:59 Intake Total 1612 2596 501 Balance 1612 2596 347 Weight 71.3 kg 70.9 kg Exam: GENERAL: well-nourished and in no acute distress. Patient is alert, but very confused and agitated. Orientation cannot be checked HEAD: Atraumatic, normocephalic. EYES: Pupils equal round and reactive to light, extraocular movements intact, sclera anicteric, conjunctiva are normal. ENT: TMs normal, nares patent, oropharynx clear without exudates. Moist mucous membranes. No oral ulcerations or bleeding gums noted NECK: supple without lymphadenopathy or JVD. Trachea is central. No cervical or axillary lymphadenopathy noted. Carotids are 2+ LUNGS: Breath sounds bibasilar fine crackles at bases. No significant dullness noted. CHEST: Palpation of chest wall shows no significant chest wall tenderness. HEART: [place] SAMPLE GRINDER, No PSH, 2/6 CHANTE aortic area, 1/6 block systolic murmur mitral area, rubs or gallops. ABDOMEN: Soft, no significant tenderness appreciated, normoactive bowel sounds. No guarding, no rebound. No rigidity noted . No masses appreciated. EXTREMITIES: Pedal pulses are 1-2+, no calf tenderness noted, Trace + pedal edema noted. No clubbing or cyanosis. NEUROLOGICAL: Patient is alert but is not able to participate in neurological exam because of patient's current mental status PSYCH: Patient cannot participate in a neurologic and psych exam because of the patient's current mental status SKIN: No significant ecchymosis, rash, ulcerations or signs of pruritus noted. MUSCULOSKELETAL EXAM: No significant joint swelling noted. Results Laboratory Results: 02/20/18 04:29 02/20/18 04:29 02/20/18 02/20/18 04:29 04:29 WBC 7.7 RBC 2.91 L Hgb 10.5 L Hct 29.6 L MCV 102 H MCH 36.0 H MCHC 35.3 RDW 15.2 H Plt Count 212 Sodium 152.5 H Potassium 3.7 Chloride 121 H Carbon Dioxide 18 L Anion Gap 14 BUN 20 Creatinine 0.68 Est GFR ( Amer) > 60 Est GFR (Non-Af Amer) > 60 Glucose 117 H Calcium 8.5 Phosphorus 2.2 L Magnesium 1.8 02/16/18 02/16/18 02/17/18 17:14 21:45 03:42 Troponin I 0.048 0.055 0.061 NT-Pro-B Natriuret Pep 02/17/18 02/18/18 15:44 05:16 Troponin I 0.061 NT-Pro-B Natriuret Pep 1810 H EKG Comments: Telemetry strip shows frequent ventricular ectopy. Twelve-lead EKG shows atrial fibrillation, no acute ST-T wave changes are noted. Impressions: Acute Abdomen Series 02/16/18 09:20 IMPRESSION: 1 Stable examination of the chest since the prior study dated 05/22. 2. Mild to moderate dilated colonic loops, non-obstructive pattern. 3. Prior endovascular stent graft repair for abdominal aortic aneurysm. Chest X-Ray 02/20/18 00:00 IMPRESSION: Slight increased basilar opacity on the right. No pneumothorax. No overt failure. Head CT 02/20/18 00:00 IMPRESSION: CHRONIC CHANGES OF ATROPHY AND MICROVASCULAR ISCHEMIA. NO ACUTE PROCESS. EVIDENCE OF ACUTE STROKE: NO. KUB X-Ray 02/20/18 08:33 IMPRESSION: No nasogastric tube identified along the lower chest or in the abdomen. Assessment & Plan - Diagnosis (1) Alcohol withdrawal Qualifiers: Complication of substance-induced condition: with unspecified complication Qualified Code(s): F10.239 - Alcohol dependence with withdrawal, unspecified Is this a current diagnosis for this admission?: Yes (2) Atrial fibrillation Qualifiers: Atrial fibrillation type: unspecified Qualified Code(s): I48.91 - Unspecified atrial fibrillation Is this a current diagnosis for this admission?: Yes (3) COPD (chronic obstructive pulmonary disease) Qualifiers: COPD type: unspecified COPD Qualified Code(s): J44.9 - Chronic obstructive pulmonary disease, unspecified Is this a current diagnosis for this admission?: Yes (4) Ventricular ectopics Is this a current diagnosis for this admission?: Yes - Notes Notes: At this point recommend starting patient on beta-mirtha at low-dose and gradually increasing as needed. Recommend metoprolol tartrate 25 mg p.o. every 8. If patient not able to take p.o., then consider IV metoprolol 2.5 mg p.o. every 6. Also recommend maintaining potassium and magnesium within normal range. Proper treatment of alcohol withdrawal might help reduce cardiac dysrhythmia. As regards atrial fibrillation: Recommend rate control with beta-blockers preferred. Patient would be a poor candidate for any chronic anticoagulation given history of alcohol dependence and abuse. COPD: Continue current management plans with bronchodilator and steroid as needed. - Time Time Spent: 30 to 50 Minutes - More than 50% of the time spent coordinating care , discussing management plans with involved caregivers. Management plans discussed with involved personnels. Medical decision making was of moderate to high complexity, patient's has multiple comorbidities. Medications reviewed and adjusted accordingly: Yes
[2018-02-20] MEDS: VANCOMYCIN HCL 750 MG in DEXTROSE 5%-WATER 250 ML IV SCH (20:41)
[2018-02-20] MEDS: CEFEPIME 2 GM/D5W RTU 2 GM/50 ML RTUPB IV SCH (22:48)
[2018-02-20] MEDS: THIAMINE HCL 100 MG, FOLIC ACID 1 MG in NORMAL SALINE 250 ML IV SCH (22:50)
[2018-02-21] MEDS: DEXTROSE 5%-1/2 NORMAL SALINE 1,000 ML IV PRN ×2 (01:41→11:29)
[2018-02-21] MEDS: METRONIDAZOLE 500 MG/NS RTU 500 MG/100 ML RTUPB IV SCH ×4 (03:46→21:16)
[2018-02-21] MEDS: LORAZEPAM INJ 2 MG/1 ML VIAL IV PRN ×4 (03:56→23:43)
[2018-02-21] MEDS: METOPROLOL TARTRATE PF/INJ 5 MG/5 ML SDV IV SCH ×4 (06:37→23:43)
[2018-02-21 08:22] LABS: HEMATOCRIT 29.5 % (37.9-51.0); HEMOGLOBIN 10.1 g/dL (13.5-17.0); MEAN CORPUSCULAR HEMOGLOBIN 34.9 pg (27.0-33.4); MEAN CORPUSCULAR HGB CONC 34.4 g/dL (32.0-36.0); MEAN CORPUSCULAR VOLUME 102 fl (80-97); PLATELET COUNT 206 10^3/uL (150-450); RED BLOOD COUNT 2.91 10^6/uL (4.35-5.55); RED CELL DISTRIBUTION WIDTH 15.2 % (11.5-14.0); WHITE BLOOD COUNT 9.5 10^3/uL (4.0-10.5)
[2018-02-21] MEDS: VANCOMYCIN HCL 750 MG in DEXTROSE 5%-WATER 250 ML IV SCH ×2 (08:24→21:16)
[2018-02-21 08:37] LABS: ALANINE AMINOTRANSFERASE 42 U/L (21-72); ALKALINE PHOSPHATASE 62 U/L (38-126); ANION GAP 11 (5-19); ASPARTATE AMINO TRANSFERASE 26 U/L (17-59); BILIRUBIN,DIRECT 0.3 mg/dL (0.0-0.4); BILIRUBIN,TOTAL 0.8 mg/dL (0.2-1.3); BLOOD UREA NITROGEN 16 mg/dL (7-20); CALCIUM 8.1 mg/dL (8.4-10.2); CARBON DIOXIDE 24 mmol/L (22-30); CHLORIDE 116 mmol/L (98-107); GLUCOSE 149 mg/dL (75-110); POTASSIUM 3.6 mmol/L (3.6-5.0); SODIUM 150.7 mmol/L (137-145); TOTAL PROTEIN 5.3 g/dL (6.3-8.2)
[2018-02-21] MEDS: SALMETEROL XINAFOATE DISKUS 50 MCG/1 DOSE 28 DOSE IH SCH ×2 (11:52→22:50)
[2018-02-21] MEDS: TIOTROPIUM BROMIDE DPI 5 CAP/KIT (18 MCG/CAP) IH SCH (11:52)
[2018-02-21] MEDS: CEFEPIME 2 GM/D5W RTU 2 GM/50 ML RTUPB IV SCH ×2 (12:37→22:50)
--- NOTE | 2018-02-21 17:39 | PDOC PROGRESS REPORT ---
Subjective Progress Note for:: 02/21/18 Subjective:: 83 y.o. M admitted to [facility] with a chief complaint of weakness. PMH includes COPD , DM, HLD, and chronic ETOH use. Patient's family reports that he drinks 1.5 bottles of wine per day. He stopped drinking 1 week prior to admission. Proceeded to develop diarrhea and significant weakness. The patient was seen this morning on rounds. He was asleep, minimally arousable to tactile stimuli. He is not following commands and is only mumbling when asked simple yes/no questions. Patient remains in AFIB with frequent PVCs. Upon auscultation, rhonci is heard over the RLL. The patient is able to maintain SPO2>88% on supplemental oxygen. The patient has pulled out his NG tube multiple times while wearing mittens. Plan to replace NG tube and, unfortunately, restrain patient. It is likely he is still going through a period of alcohol withdrawal. Due to his significant encephalopathy, the patient is not able to tolerate anything by mouth at this time. Discussed patient's status with , she has been updated. She states she would like the patient to continue receiving enteral feeding. She does not wish to pursue palliative care at this time. Reason For Visit: ACUTE RENAL FAILURE, DEHYDRATION, HYPONATREMIA Physical Exam Vital Signs: Temp Pulse Resp BP Pulse Ox 97.6 F 99 18 123/78 93 02/21/18 15:31 02/21/18 15:31 02/21/18 15:31 02/21/18 15:31 02/21/18 15:31 Intake & Output 02/20/18 02/21/18 02/22/18 06:59 06:59 06:59 Intake Total 2596 2311.2 837 Balance 2596 2311.2 837 Weight 70.9 kg 73.4 kg General appearance: PRESENT: thin Eye exam: PRESENT: conjunctiva pink, PERRLA Mouth exam: PRESENT: dry mucosa, tongue midline Teeth exam: PRESENT: poor dentation Neck exam: PRESENT: full ROM Respiratory exam: PRESENT: clear to auscultation tanvi, symmetrical, unlabored Cardiovascular exam: PRESENT: irregular rhythm - AFIB Pulses: PRESENT: normal radial pulses, normal dorsalis pedis pul GI/Abdominal exam: PRESENT: normal bowel sounds, soft. ABSENT: tenderness Rectal exam: PRESENT: deferred Extremities exam: PRESENT: full ROM Musculoskeletal exam: PRESENT: full ROM. ABSENT: ambulatory - UNSAFE TO GET OOB WITH ASSISTANCE - PER PT Neurological exam: PRESENT: altered. ABSENT: alert, awake, oriented to person, oriented to place, oriented to time, oriented to situation Skin exam: PRESENT: dry, intact, warm Results Laboratory Results: 02/21/18 07:57 02/21/18 07:57 02/21/18 02/21/18 02/21/18 07:57 07:57 07:57 WBC 9.5 RBC 2.91 L Hgb 10.1 L Hct 29.5 L MCV 102 H MCH 34.9 H MCHC 34.4 RDW 15.2 H Plt Count 206 Sodium 150.7 H Potassium 3.6 Chloride 116 H Carbon Dioxide 24 Anion Gap 11 BUN 16 Creatinine 0.67 Est GFR ( Amer) > 60 Est GFR (Non-Af Amer) > 60 Glucose 149 H Calcium 8.1 L Total Bilirubin 0.8 AST 26 ALT 42 Alkaline Phosphatase 62 Ammonia < 8.7 L Total Protein 5.3 L Albumin 3.0 L 02/16/18 16:25 Blood Blood Culture - Final NO GROWTH IN 5 DAYS 02/16/18 15:07 Blood Blood Culture - Final NO GROWTH IN 5 DAYS 02/16/18 02/16/18 02/17/18 17:14 21:45 03:42 Troponin I 0.048 0.055 0.061 NT-Pro-B Natriuret Pep 02/17/18 02/18/18 15:44 05:16 Troponin I 0.061 NT-Pro-B Natriuret Pep 1810 H Impressions: Acute Abdomen Series 02/16/18 09:20 IMPRESSION: 1 Stable examination of the chest since the prior study dated 05/22. 2. Mild to moderate dilated colonic loops, non-obstructive pattern. 3. Prior endovascular stent graft repair for abdominal aortic aneurysm. Chest X-Ray 02/20/18 00:00 IMPRESSION: Slight increased basilar opacity on the right. No pneumothorax. No overt failure. Head CT 02/20/18 00:00 IMPRESSION: CHRONIC CHANGES OF ATROPHY AND MICROVASCULAR ISCHEMIA. NO ACUTE PROCESS. EVIDENCE OF ACUTE STROKE: NO. KUB X-Ray 02/20/18 08:33 IMPRESSION: No nasogastric tube identified along the lower chest or in the abdomen. Status: Imported from PACS Assessment & Plan - Diagnosis (1) Acute renal failure (ARF) Qualifiers: Acute renal failure type: unspecified Qualified Code(s): N17.9 - Acute kidney failure, unspecified Is this a current diagnosis for this admission?: Yes Plan: Resolved. Cr now within normal limits Prerenal ARF secondary to dehydration. Unknown baseline. Initial BUN 133, creatinine 2.29, GFR 28 Currently unable to tolerate PO intake due to significant encephalopathy Continue IV fluids. Antiemetics as needed Avoid nephrotoxic medications as able. Renally dosed antibiotics. We will monitor serial chemistries. (2) Dehydration Is this a current diagnosis for this admission?: Yes Plan: plan as above (3) Encephalopathy Is this a current diagnosis for this admission?: Yes Plan: Secondary to alcohol withdrawal, infection (PNA) and overall malnutrition, Neuro exam unchanged today: minimally responsive, not following commands, mumbling and groaning Head CT negative Initiate p.o. Valium for alcohol withdrawal PRN IV Ativan for alcohol withdrawal Daily thiamine and folate IV antibiotics for bilateral pneumonia Initiate enteral feeding now that NG tube is in place (4) Atrial fibrillation Qualifiers: Atrial fibrillation type: unspecified Qualified Code(s): I48.91 - Unspecified atrial fibrillation Is this a current diagnosis for this admission?: Yes Plan: Atrial fibrillation; family admittedly does not know his medical history well. Rate better controlled with initiation of Lopressor. EKG this morning shows AFIB with multiform PVCs No heart murmurs are auscultated. ECHOcardiogram completed, normal LVEF, no other significant findings Due to family report of melena, holding aspirin and anticoagulant therapy pending evaluation. Consulted cardiology, they recommended Lopressor 25mg PO q8hr (5) PNA (pneumonia) Is this a current diagnosis for this admission?: Yes Plan: As evidence by infiltrates seen on XRAY and an increase in respiratory secretions Sputum culture ordered - results pending PRN Nasotracheal suctioning by RT CXR yesterday shows worsening PNA, particularly R infiltrate. Continue Cefepime and Vancomycin (6) Alcohol withdrawal Qualifiers: Complication of substance-induced condition: with unspecified complication Qualified Code(s): F10.239 - Alcohol dependence with withdrawal, unspecified Is this a current diagnosis for this admission?: Yes Plan: The patient reportedly drinks 1.5 bottles of wine daily and abruptly stopped drinking alcohol about 7 days ago. Per family members, the patient has had very little intake during the 7 days prior to admission with near continuous loose stools. No known history of alcohol withdrawal seizure. The patient is placed on fall, seizure, aspiration precautions. We will continue IV maintenance fluids. Initiate scheduled PO valium after NG tube placement PRN IV Ativan for anxiety, agitation, and withdrawal symptoms. Antiemetics as needed. Daily thiamine and folate Discharge planning is consulted. Patient will likely require acute rehab or SNF following hospitalization (7) Type 2 diabetes mellitus Qualifiers: Diabetes mellitus terminal manager insulin use: without fdc use Is this a current diagnosis for this admission?: No Plan: Accu-Cheks before meals and at bedtime and provide Humalog sliding scale coverage. Hypoglycemia protocols in place. Initiate glucerna enteral feeding after NG tube placement (8) Gastroenteritis Is this a current diagnosis for this admission?: Yes Plan: Alcoholic gastroenteritis with report of melena. Continue IV fluids. As needed antiemetics. When possible, obtain stool for culture to rule out additional causes as well as to test for blood. Continue IV Protonix twice daily; holding DVT prophylaxis and aspirin pending fecal occult stool. Due to leukocytosis and acute abdomen xray showing moderately dilated colon, the patient is on day 4 of renally dosed IV Levofloxacin (double coverage for PNA) and metronidazole. (9) Hyperlipidemia Is this a current diagnosis for this admission?: No Plan: History of HLD Resume home dose atorvastatin once NG tube in place (10) COPD (chronic obstructive pulmonary disease) Qualifiers: COPD type: unspecified COPD Qualified Code(s): J44.9 - Chronic obstructive pulmonary disease, unspecified Is this a current diagnosis for this admission?: Yes Plan: History of COPD; stable and without exacerbation at this time. Reportedly, the patient was recently treated with azithromycin and a steroid pack for COPD exacerbation. Supplemental oxygen as needed to maintain SPO2 greater than 88%. As needed nebulizer treatments are available. No indication for steroids at this time. (11) Hypokalemia Is this a current diagnosis for this admission?: Yes Plan: Resolved. Secondary to poor PO intake and overall malnutrition Replacement with IV KCL Continue to trend daily chemistries (12) Hypernatremia Is this a current diagnosis for this admission?: Yes Plan: Secondary to dehydration Na 150 Serum Osm 325 Continue D5 1/2NS (13) Nutritional deficiency Is this a current diagnosis for this admission?: Yes Plan: Secondary to significant encephalopathy due to ETOH withdrawal and PNA NG tube placed yesterday, but patient has removed twice Plan to reinsert NG tube and apply nonviolent soft wrist restraints Resume enteral feeding Requested millinery blocker consult for proper enteral feeding recommendations (14) Full code status Is this a current diagnosis for this admission?: Yes Plan: Discussed plan of care and CODE STATUS with patient's . She wishes to pursue all available medical treatment at this time. Patient will remain full code. - Time Time Spent with patient: 15-24 minutes Medications reviewed and adjusted accordingly: Yes Anticipated discharge: Acute Rehab - Inpatient Certification Based on my medical assessment, after consideration of the patient's comorbidities, presenting symptoms, or acuity I expect that the services needed warrant INPATIENT care.: Yes I certify that my determination is in accordance with my understanding of Medicare's requirements for reasonable and necessary INPATIENT services [42 CFR 412.3e].: Yes Medical Necessity: Risk of Complication if Not Cared For in Hospital - Plan Summary Plan Summary: REINSERT NG TUBE. CONTINUE IV ANTIBIOTICS. CONTINUE PO VALIUM (ONCE NG INSERTED) . CONTINUE DAILY THIAMINE AND FOLATE.
--- NOTE | 2018-02-21 19:26 | PDOC PROGRESS REPORT ---
Subjective Progress Note for:: 02/21/18 Subjective:: Patient remains confused and agitated but somewhat less than before. Patient continues to have atrial fibrillation and frequent ventricular ectopy. Patient still noted to be in active withdrawal. Review of systems: Rest review of systems negative. Medications: Medications have been reviewed. Reason For Visit: ACUTE RENAL FAILURE, DEHYDRATION, HYPONATREMIA Physical Exam Vital Signs: Temp Pulse Resp BP Pulse Ox 97.6 F 99 18 123/78 93 02/21/18 15:31 02/21/18 15:31 02/21/18 15:31 02/21/18 15:31 02/21/18 15:31 Intake & Output 02/20/18 02/21/18 02/22/18 06:59 06:59 06:59 Intake Total 2596 2311.2 837 Balance 2596 2311.2 837 Weight 70.9 kg 73.4 kg Exam: GENERAL: well-nourished and in no acute distress. Patient is alert but quite agitated and is not making much sense. HEAD: Atraumatic, normocephalic. EYES: Pupils equal round and reactive to light, extraocular movements intact, sclera anicteric, conjunctiva are normal. ENT: TMs normal, nares patent, oropharynx clear without exudates. Moist mucous membranes. No oral ulcerations or bleeding gums noted NECK: supple without lymphadenopathy or JVD. Trachea is central. No cervical or axillary lymphadenopathy noted. Carotids are 2+ LUNGS: Breath sounds bibasilar fine crackles at bases. No significant dullness noted. CHEST: Palpation of chest wall shows no significant chest wall tenderness. 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 ABDOMEN: Soft, no significant tenderness appreciated, normoactive bowel sounds. No guarding, no rebound. No rigidity noted . No masses appreciated. EXTREMITIES: Pedal pulses are 1-2+, no calf tenderness noted, Trace + pedal edema noted. No clubbing or cyanosis. NEUROLOGICAL: Patient is alert but is not able to participate in neurological exam because of patient's current mental status. Patient noted to be able to move all 4 extremities. PSYCH: Patient cannot participate in a neurologic and psych exam because of the patient's current mental status SKIN: No significant ecchymosis, rash, ulcerations or signs of pruritus noted. MUSCULOSKELETAL EXAM: No significant joint swelling noted. Results Laboratory Results: 02/21/18 07:57 02/21/18 07:57 02/21/18 02/21/18 02/21/18 07:57 07:57 07:57 WBC 9.5 RBC 2.91 L Hgb 10.1 L Hct 29.5 L MCV 102 H MCH 34.9 H MCHC 34.4 RDW 15.2 H Plt Count 206 Sodium 150.7 H Potassium 3.6 Chloride 116 H Carbon Dioxide 24 Anion Gap 11 BUN 16 Creatinine 0.67 Est GFR ( Amer) > 60 Est GFR (Non-Af Amer) > 60 Glucose 149 H Calcium 8.1 L Total Bilirubin 0.8 AST 26 ALT 42 Alkaline Phosphatase 62 Ammonia < 8.7 L Total Protein 5.3 L Albumin 3.0 L 02/16/18 16:25 Blood Blood Culture - Final NO GROWTH IN 5 DAYS 02/16/18 15:07 Blood Blood Culture - Final NO GROWTH IN 5 DAYS 02/16/18 02/16/18 02/17/18 17:14 21:45 03:42 Troponin I 0.048 0.055 0.061 NT-Pro-B Natriuret Pep 02/17/18 02/18/18 15:44 05:16 Troponin I 0.061 NT-Pro-B Natriuret Pep 1810 H EKG Comments: Shows atrial fibrillation heart rate relatively well controlled. Frequent ventricular ectopy still noted. Impressions: Acute Abdomen Series 02/16/18 09:20 IMPRESSION: 1 Stable examination of the chest since the prior study dated 05/22. 2. Mild to moderate dilated colonic loops, non-obstructive pattern. 3. Prior endovascular stent graft repair for abdominal aortic aneurysm. Chest X-Ray 02/20/18 00:00 IMPRESSION: Slight increased basilar opacity on the right. No pneumothorax. No overt failure. Head CT 02/20/18 00:00 IMPRESSION: CHRONIC CHANGES OF ATROPHY AND MICROVASCULAR ISCHEMIA. NO ACUTE PROCESS. EVIDENCE OF ACUTE STROKE: NO. Assessment & Plan - Diagnosis (1) Alcohol withdrawal Qualifiers: Complication of substance-induced condition: with unspecified complication Qualified Code(s): F10.239 - Alcohol dependence with withdrawal, unspecified Is this a current diagnosis for this admission?: Yes (2) Atrial fibrillation Qualifiers: Atrial fibrillation type: unspecified Qualified Code(s): I48.91 - Unspecified atrial fibrillation Is this a current diagnosis for this admission?: Yes (3) COPD (chronic obstructive pulmonary disease) Qualifiers: COPD type: unspecified COPD Qualified Code(s): J44.9 - Chronic obstructive pulmonary disease, unspecified Is this a current diagnosis for this admission?: Yes (4) Ventricular ectopics Is this a current diagnosis for this admission?: Yes - Notes Notes: Alcohol withdrawal: Patient being well managed by hospitalist. Atrial fibrillation: Recommend rate control. Patient would be a poor candidate for any chronic anticoagulation but may need to be addressed later when he is more sober. COPD: Currently is stable and maintaining oxygenation. Ventricular ectopy: Continue beta-mirtha therapy. Maintain potassium,, magnesium and oxygenation within normal limits. - Time Time with patient: 15-25 minutes - More than 50% of the time spent coordinating care, discussing management plans with involved caregivers. Management plans discussed with involved personnels. Medical decision making was of moderate to high complexity, patient's has multiple comorbidities. Medications reviewed and adjusted accordingly: Yes
--- NOTE | 2018-02-21 20:36 | RADIOLOGY REPORT (SQ) ---
EXAM DESCRIPTION: KUB/ABDOMEN (SINGLE VIEW) COMPLETED DATE/TIME: 02/21/2018 6:16 pm REASON FOR STUDY: Check Placement of NG Tube COMPARISON: 02/20/2018 NUMBER OF VIEWS: One view. TECHNIQUE: Supine radiographic image of the abdomen acquired. LIMITATIONS: None. FINDINGS: Nasogastric catheter tip overlies the body of the stomach with side port near the GE junct ion. OTHER: No other acute finding. IMPRESSION: Nasogastric catheter tip overlies the body of the stomach with side port near the GE sofia ction. TECHNICAL DOCUMENTATION: JOB ID: [id number] [place]-72 2010 [employer]- All Rights Reserved Reading location - IP/workstation name: [email or web address]
[2018-02-21] MEDS: THIAMINE HCL 100 MG, FOLIC ACID 1 MG in NORMAL SALINE 250 ML IV SCH (22:51)
[2018-02-22] MEDS: METRONIDAZOLE 500 MG/NS RTU 500 MG/100 ML RTUPB IV SCH ×4 (03:39→21:17)
[2018-02-22] MEDS: DEXTROSE 5%-1/2 NORMAL SALINE 1,000 ML IV PRN ×2 (05:19→19:01)
[2018-02-22] MEDS: METOPROLOL TARTRATE PF/INJ 5 MG/5 ML SDV IV SCH ×3 (05:53→18:40)
[2018-02-22 07:54] LABS: HEMATOCRIT 26.6 % (37.9-51.0); HEMOGLOBIN 9.2 g/dL (13.5-17.0); MEAN CORPUSCULAR HEMOGLOBIN 34.7 pg (27.0-33.4); MEAN CORPUSCULAR HGB CONC 34.5 g/dL (32.0-36.0); MEAN CORPUSCULAR VOLUME 101 fl (80-97); PLATELET COUNT 168 10^3/uL (150-450); RED BLOOD COUNT 2.65 10^6/uL (4.35-5.55); RED CELL DISTRIBUTION WIDTH 15.4 % (11.5-14.0); WHITE BLOOD COUNT 8.8 10^3/uL (4.0-10.5)
[2018-02-22] MEDS: VANCOMYCIN HCL 750 MG in DEXTROSE 5%-WATER 250 ML IV SCH ×2 (08:15→21:18)
[2018-02-22 08:28] LABS: ALANINE AMINOTRANSFERASE 34 U/L (21-72); ALBUMIN 2.6 g/dL (3.5-5.0); ALKALINE PHOSPHATASE 60 U/L (38-126); ANION GAP 6 (5-19); ASPARTATE AMINO TRANSFERASE 24 U/L (17-59); BILIRUBIN,DIRECT 0.3 mg/dL (0.0-0.4); BILIRUBIN,TOTAL 0.6 mg/dL (0.2-1.3); BLOOD UREA NITROGEN 17 mg/dL (7-20); CALCIUM 7.9 mg/dL (8.4-10.2); CARBON DIOXIDE 24 mmol/L (22-30); CHLORIDE 116 mmol/L (98-107); GLUCOSE 156 mg/dL (75-110); POTASSIUM 3.5 mmol/L (3.6-5.0); SODIUM 146.4 mmol/L (137-145); TOTAL PROTEIN 4.8 g/dL (6.3-8.2)
[2018-02-22] MEDS: CEFEPIME 2 GM/D5W RTU 2 GM/50 ML RTUPB IV SCH ×2 (12:03→22:21)
--- NOTE | 2018-02-22 12:04 | RADIOLOGY REPORT (SQ) ---
EXAM DESCRIPTION: KUB/ABDOMEN (SINGLE VIEW) COMPLETED DATE/TIME: 02/22/2018 11:55 am REASON FOR STUDY: NG TUBE PLACEMENT VERIFICATION COMPARISON: 02/21/2018. FINDINGS: Single semi upright image of the lower chest and upper abdomen. Patient rotated to the right. This rotates the nasogastric tube across the midline. Tube tip is fel t to be intragastric, appropriate. IMPRESSION: NG tube down, appropriate. TECHNICAL DOCUMENTATION: JOB ID: [id number] Reading location - IP/workstation name: [email or web address]
[2018-02-22] MEDS: MULTIVITAMIN TABLET PO SCH (15:49)
[2018-02-22] MEDS: TIOTROPIUM BROMIDE DPI 5 CAP/KIT (18 MCG/CAP) IH SCH (16:17)
[2018-02-22] MEDS: SALMETEROL XINAFOATE DISKUS 50 MCG/1 DOSE 28 DOSE IH SCH ×2 (16:17→21:19)
--- NOTE | 2018-02-22 17:33 | PDOC PROGRESS REPORT ---
Subjective Progress Note for:: 02/22/18 Subjective:: Patient remains confused and agitated but somewhat less than before. Patient continues to have atrial fibrillation and frequent ventricular ectopy. Patient still noted to be in active withdrawal. Patient had partially pulled out NG tube which is being placed back. Patient is now on NG tube feeding. Review of systems: System review could not be obtained but nurses report no new complaints. Medications: Medications have been reviewed. Reason For Visit: ACUTE RENAL FAILURE, DEHYDRATION, HYPONATREMIA Physical Exam Vital Signs: Temp Pulse Resp BP Pulse Ox 97.5 F 66 20 127/86 H 92 02/22/18 15:37 02/22/18 15:37 02/22/18 15:37 02/22/18 15:37 02/22/18 15:37 Intake & Output 02/21/18 02/22/18 02/23/18 06:59 06:59 06:59 Intake Total 2311.2 3202.2 100 Balance 2311.2 3202.2 100 Weight 73.4 kg 74.9 kg Exam: GENERAL: well-nourished and in no acute distress. Patient is alert, agitated and very confused at time, not oriented to place time or person. HEAD: Atraumatic, normocephalic. EYES: Pupils equal round and reactive to light, extraocular movements intact, sclera anicteric, conjunctiva are normal. ENT: TMs normal, nares patent, oropharynx clear without exudates. Moist mucous membranes. No oral ulcerations or bleeding gums noted NECK: supple without lymphadenopathy or JVD. Trachea is central. No cervical or axillary lymphadenopathy noted. Carotids are 2+ LUNGS: Breath sounds bibasilar fine crackles at bases. No significant dullness noted. CHEST: Palpation of chest wall shows no significant chest wall tenderness. 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 ABDOMEN: Soft, no significant tenderness appreciated, normoactive bowel sounds. No guarding, no rebound. No rigidity noted . No masses appreciated. EXTREMITIES: Pedal pulses are 1-2+, no calf tenderness noted, Trace + pedal edema noted. No clubbing or cyanosis. NEUROLOGICAL: Patient is alert but is not able to participate in neurological exam because of patient's current mental status. Patient however noted to move all 4 extremities. No facial asymmetry noted PSYCH: Patient cannot participate in a neurologic and psych exam because of the patient's current mental status SKIN: No significant ecchymosis, rash, ulcerations or signs of pruritus noted. MUSCULOSKELETAL EXAM: No significant joint swelling noted. Results Laboratory Results: 02/22/18 07:45 02/22/18 07:45 02/22/18 02/22/18 07:45 07:45 WBC 8.8 RBC 2.65 L Hgb 9.2 L Hct 26.6 L MCV 101 H MCH 34.7 H MCHC 34.5 RDW 15.4 H Plt Count 168 Sodium 146.4 H Potassium 3.5 L Chloride 116 H Carbon Dioxide 24 Anion Gap 6 BUN 17 Creatinine 0.65 Est GFR ( Amer) > 60 Est GFR (Non-Af Amer) > 60 Glucose 156 H Calcium 7.9 L Magnesium 1.4 L Total Bilirubin 0.6 AST 24 ALT 34 Alkaline Phosphatase 60 Total Protein 4.8 L Albumin 2.6 L 02/16/18 16:25 Blood Blood Culture - Final NO GROWTH IN 5 DAYS 02/16/18 15:07 Blood Blood Culture - Final NO GROWTH IN 5 DAYS 02/16/18 02/16/18 02/17/18 17:14 21:45 03:42 Troponin I 0.048 0.055 0.061 NT-Pro-B Natriuret Pep 02/17/18 02/18/18 15:44 05:16 Troponin I 0.061 NT-Pro-B Natriuret Pep 1810 H Impressions: Acute Abdomen Series 02/16/18 09:20 IMPRESSION: 1 Stable examination of the chest since the prior study dated 05/22. 2. Mild to moderate dilated colonic loops, non-obstructive pattern. 3. Prior endovascular stent graft repair for abdominal aortic aneurysm. Chest X-Ray 02/20/18 00:00 IMPRESSION: Slight increased basilar opacity on the right. No pneumothorax. No overt failure. Head CT 02/20/18 00:00 IMPRESSION: CHRONIC CHANGES OF ATROPHY AND MICROVASCULAR ISCHEMIA. NO ACUTE PROCESS. EVIDENCE OF ACUTE STROKE: NO. KUB X-Ray 02/22/18 00:00 IMPRESSION: NG tube down, appropriate. Assessment & Plan - Diagnosis (1) Alcohol withdrawal Qualifiers: Complication of substance-induced condition: with unspecified complication Qualified Code(s): F10.239 - Alcohol dependence with withdrawal, unspecified Is this a current diagnosis for this admission?: Yes (2) Atrial fibrillation Qualifiers: Atrial fibrillation type: unspecified Qualified Code(s): I48.91 - Unspecified atrial fibrillation Is this a current diagnosis for this admission?: Yes (3) COPD (chronic obstructive pulmonary disease) Qualifiers: COPD type: unspecified COPD Qualified Code(s): J44.9 - Chronic obstructive pulmonary disease, unspecified Is this a current diagnosis for this admission?: Yes (4) Ventricular ectopics Is this a current diagnosis for this admission?: Yes - Notes Notes: Alcohol withdrawal: Patient being well managed by hospitalist. Atrial fibrillation: Recommend rate control. Patient would be a poor candidate for any chronic anticoagulation but may need to be addressed later when he is more sober. Continue beta-blockers, may give IV if needed. COPD: Currently is stable and maintaining oxygenation. Ventricular ectopy: Continue beta-mirtha therapy. Maintain potassium,, magnesium and oxygenation within normal limits. Will sign off but can see patient on as needed basis when called. Please inform us when patient more alert and oriented. - Time Time with patient: 15-25 minutes - More than 50% of the time spent coordinating care, discussing management plans with involved caregivers. Management plans discussed with involved personnels. Medical decision making was of moderate to high complexity, patient's has multiple comorbidities. Medications reviewed and adjusted accordingly: Yes
[2018-02-22] MEDS: IPRATROPIUM/ALBUTEROL 0.5-2.5 MG/3 ML AMPUL NEB PRN (20:04)
[2018-02-22 20:38] LABS: ARTERIAL BLOOD BASE EXCESS -1.2 mmol/L; ARTERIAL BLOOD HCO3 23.6 mmol/L (20-26); ARTERIAL BLOOD O2 SATURATION 99.3 % (94-98); ARTERIAL BLOOD PH 7.39 (7.35-7.45); ARTERIAL BLOOD PO2 196.2 mmHg (80-100); ARTERIAL BLOOD TOTAL CO2 24.8 mmol/L (23-27)
[2018-02-22 20:53] LABS: ARTERIAL BLOOD FIO2 4L
--- NOTE | 2018-02-22 21:11 | RADIOLOGY REPORT (SQ) ---
EXAM DESCRIPTION: CHEST SINGLE VIEW COMPLETED DATE/TIME: 02/22/2018 8:51 pm REASON FOR STUDY: DYSPNEA COMPARISON: 02/20/2018 EXAM PARAMETERS: NUMBER OF VIEWS: One view. TECHNIQUE: Single frontal radiographic view of the chest acquired. RADIATION DOSE: NA LIMITATIONS: None. FINDINGS: LUNGS AND PLEURA: Similar bilateral basilar subsegmental atelectasis. No consolidation or significant pleural effusion. MEDIASTINUM AND HILAR STRUCTURES: Stable. HEART AND VASCULAR STRUCTURES: Stable. BONES: No acute findings. HARDWARE: Nasogastric catheter tip in the region of the body of the stomach. OTHER: No other significant finding. IMPRESSION: Similar bilateral basilar subsegmental atelectasis. No consolidation or significant ple ural effusion. TECHNICAL DOCUMENTATION: JOB ID: [id number] 2010 [employer]- All Rights Reserved Reading location - IP/workstation name: [email or web address]
--- NOTE | 2018-02-22 21:24 | PDOC PROGRESS REPORT ---
Subjective Progress Note for:: 02/22/18 Subjective:: 83 y.o. M admitted to [facility] with a chief complaint of weakness. PMH includes COPD , DM, HLD, and chronic ETOH use. Patient's family reports that he drinks 1.5 bottles of wine per day. He stopped drinking 1 week prior to admission. Proceeded to develop diarrhea and significant weakness. The patient was seen this morning on rounds. He was asleep but arousable to verbal stimuli. With a lot of prompting, he is following some commands. He is able to tell me his name and birthday. His speech is very garbled, but he is able to answer very basic questions. This is a significant improvement compared to the last few days. Patient remains in AFIB. Upon auscultation, lungs are clear to auscultation. The patient is able to maintain SPO2>88% on supplemental oxygen. S1S2. No murmur, rubs, gallops. Reason For Visit: ACUTE RENAL FAILURE, DEHYDRATION, HYPONATREMIA Physical Exam Vital Signs: Temp Pulse Resp BP Pulse Ox 97.4 F 99 30 H 119/61 95 02/22/18 19:22 02/22/18 19:47 02/22/18 19:47 02/22/18 19:22 02/22/18 19:47 Intake & Output 02/21/18 02/22/18 02/23/18 06:59 06:59 06:59 Intake Total 2311.2 3202.2 1748 Balance 2311.2 3202.2 1748 Weight 73.4 kg 74.9 kg General appearance: PRESENT: no acute distress, thin Head exam: PRESENT: atraumatic Eye exam: PRESENT: conjunctiva pink, PERRLA Mouth exam: PRESENT: dry mucosa Teeth exam: PRESENT: poor dentation Neck exam: PRESENT: full ROM Respiratory exam: PRESENT: clear to auscultation tanvi, symmetrical, unlabored Cardiovascular exam: PRESENT: irregular rhythm Pulses: PRESENT: normal radial pulses, normal dorsalis pedis pul Vascular exam: PRESENT: normal capillary refill GI/Abdominal exam: PRESENT: normal bowel sounds, soft. ABSENT: distended, firm , guarding, tenderness Rectal exam: PRESENT: deferred Extremities exam: PRESENT: full ROM. ABSENT: pedal edema Musculoskeletal exam: ABSENT: ambulatory - unsafe to get OOB per PT Neurological exam: PRESENT: awake, oriented to person, oriented to place. ABSENT: oriented to time, oriented to situation Psychiatric exam: PRESENT: appropriate affect Skin exam: PRESENT: dry, intact, normal color Results Laboratory Results: 02/22/18 07:45 02/22/18 07:45 02/22/18 02/22/18 02/22/18 07:45 07:45 20:09 WBC 8.8 RBC 2.65 L Hgb 9.2 L Hct 26.6 L MCV 101 H MCH 34.7 H MCHC 34.5 RDW 15.4 H Plt Count 168 Carbonic Acid 1.20 HCO3/H2CO3 Ratio 19:1 ABG pH 7.39 ABG pCO2 40.0 ABG pO2 196.2 H ABG HCO3 23.6 ABG O2 Saturation 99.3 H ABG Base Excess -1.2 FiO2 4L Sodium 146.4 H Potassium 3.5 L Chloride 116 H Carbon Dioxide 24 Anion Gap 6 BUN 17 Creatinine 0.65 Est GFR ( Amer) > 60 Est GFR (Non-Af Amer) > 60 Glucose 156 H Calcium 7.9 L Magnesium 1.4 L Total Bilirubin 0.6 AST 24 ALT 34 Alkaline Phosphatase 60 Total Protein 4.8 L Albumin 2.6 L 02/16/18 02/16/18 02/17/18 17:14 21:45 03:42 Troponin I 0.048 0.055 0.061 NT-Pro-B Natriuret Pep 02/17/18 02/18/18 15:44 05:16 Troponin I 0.061 NT-Pro-B Natriuret Pep 1810 H Impressions: Acute Abdomen Series 02/16/18 09:20 IMPRESSION: 1 Stable examination of the chest since the prior study dated 05/22. 2. Mild to moderate dilated colonic loops, non-obstructive pattern. 3. Prior endovascular stent graft repair for abdominal aortic aneurysm. Head CT 02/20/18 00:00 IMPRESSION: CHRONIC CHANGES OF ATROPHY AND MICROVASCULAR ISCHEMIA. NO ACUTE PROCESS. EVIDENCE OF ACUTE STROKE: NO. KUB X-Ray 02/22/18 00:00 IMPRESSION: NG tube down, appropriate. Status: Imported from PACS Assessment & Plan - Diagnosis (1) Acute renal failure (ARF) Qualifiers: Acute renal failure type: unspecified Qualified Code(s): N17.9 - Acute kidney failure, unspecified Is this a current diagnosis for this admission?: Yes Plan: Resolved. Cr now within normal limits Prerenal ARF secondary to dehydration. Unknown baseline. Initial BUN 133, creatinine 2.29, GFR 28 Currently unable to tolerate PO intake due to significant encephalopathy Continue IV fluids. Antiemetics as needed Avoid nephrotoxic medications as able. Renally dosed antibiotics. We will monitor serial chemistries. (2) Dehydration Is this a current diagnosis for this admission?: Yes Plan: plan as above (3) Encephalopathy Is this a current diagnosis for this admission?: Yes Plan: Secondary to alcohol withdrawal, infection (PNA) and overall malnutrition, Neuro exam unchanged today: minimally responsive, not following commands, mumbling and groaning Head CT negative Continue p.o. Valium for alcohol withdrawal PRN IV Ativan for alcohol withdrawal Daily thiamine, folate and MVI IV antibiotics for bilateral pneumonia Enteral feeding now that NG tube is in place (4) Atrial fibrillation Qualifiers: Atrial fibrillation type: unspecified Qualified Code(s): I48.91 - Unspecified atrial fibrillation Is this a current diagnosis for this admission?: Yes Plan: Atrial fibrillation; family admittedly does not know his medical history well. Rate better controlled with initiation of Lopressor. EKG this morning shows AFIB with multiform PVCs No heart murmurs are auscultated. ECHOcardiogram completed, normal LVEF, no other significant findings Due to family report of melena, holding aspirin and anticoagulant therapy pending evaluation. Consulted cardiology, they recommended Lopressor 25mg PO q8hr (5) PNA (pneumonia) Is this a current diagnosis for this admission?: Yes Plan: As evidence by infiltrates seen on XRAY and an increase in respiratory secretions Sputum culture ordered - results pending PRN Nasotracheal suctioning by RT CXR shows worsening PNA, particularly R infiltrate. Continue Cefepime and Vancomycin (6) Alcohol withdrawal Qualifiers: Complication of substance-induced condition: with unspecified complication Qualified Code(s): F10.239 - Alcohol dependence with withdrawal, unspecified Is this a current diagnosis for this admission?: Yes Plan: The patient reportedly drinks 1.5 bottles of wine daily and abruptly stopped drinking alcohol about 7 days ago. Per family members, the patient has had very little intake during the 7 days prior to admission with near continuous loose stools. No known history of alcohol withdrawal seizure. The patient is placed on fall, seizure, aspiration precautions. We will continue IV maintenance fluids. Continue scheduled PO valium PRN IV Ativan for anxiety, agitation, and withdrawal symptoms. Antiemetics as needed. Daily thiamine, folate, mvi Discharge planning is consulted. Patient will likely require acute rehab or SNF following hospitalization (7) Type 2 diabetes mellitus Qualifiers: Diabetes mellitus dedicated intermodal truck driver insulin use: without dedicated intermodal truck driver use Is this a current diagnosis for this admission?: No Plan: Accu-Cheks before meals and at bedtime and provide Humalog sliding scale coverage. Hypoglycemia protocols in place. Initiate glucerna enteral feeding after NG tube placement (8) Gastroenteritis Is this a current diagnosis for this admission?: Yes Plan: Alcoholic gastroenteritis with report of melena. Continue IV fluids. As needed antiemetics. When possible, obtain stool for culture to rule out additional causes as well as to test for blood. Continue IV Protonix twice daily; holding DVT prophylaxis and aspirin pending fecal occult stool. Due to leukocytosis and acute abdomen xray showing moderately dilated colon, the patient is on day 7 of renally dosed metronidazole. (9) Hyperlipidemia Is this a current diagnosis for this admission?: No Plan: History of HLD Resume home dose atorvastatin once NG tube in place (10) COPD (chronic obstructive pulmonary disease) Qualifiers: COPD type: unspecified COPD Qualified Code(s): J44.9 - Chronic obstructive pulmonary disease, unspecified Is this a current diagnosis for this admission?: Yes Plan: History of COPD; stable and without exacerbation at this time. Reportedly, the patient was recently treated with azithromycin and a steroid pack for COPD exacerbation. Supplemental oxygen as needed to maintain SPO2 greater than 88%. As needed nebulizer treatments are available. No indication for steroids at this time. (11) Hypokalemia Is this a current diagnosis for this admission?: Yes Plan: Resolved. Secondary to poor PO intake and overall malnutrition Replacement with IV KCL (12) Hypernatremia Is this a current diagnosis for this admission?: Yes Plan: Secondary to dehydration Na 150 Serum Osm 325 Continue D5 1/2NS (13) Nutritional deficiency Is this a current diagnosis for this admission?: Yes Plan: Unable to tolerate PO intake secondary to significant encephalopathy due to ETOH withdrawal and PNA NG tube placed 02/20, but patient has removed multiple times already Continue nonviolent soft wrist restraints Requested healthcare administration intern consult for proper enteral feeding recommendations (14) Full code status Is this a current diagnosis for this admission?: Yes Plan: Discussed plan of care and CODE STATUS with patient's . She wishes to pursue all available medical treatment at this time. Patient will remain full code. - Time Time Spent with patient: 15-24 minutes Medications reviewed and adjusted accordingly: Yes Anticipated discharge: Acute Rehab - Inpatient Certification Based on my medical assessment, after consideration of the patient's comorbidities, presenting symptoms, or acuity I expect that the services needed warrant INPATIENT care.: Yes I certify that my determination is in accordance with my understanding of Medicare's requirements for reasonable and necessary INPATIENT services [42 CFR 412.3e].: Yes Medical Necessity: Risk of Complication if Not Cared For in Hospital - Plan Summary Plan Summary: CONTINUE ENTERAL FEEDING. ETOH WITHDRAWAL
[2018-02-22] MEDS: THIAMINE HCL 100 MG, FOLIC ACID 1 MG in NORMAL SALINE 250 ML IV SCH (23:15)
[2018-02-22] MEDS: INSULIN LISPRO 100 UNIT/ML 3 ML VIAL SUBCUT PRN (23:24)
[2018-02-23] MEDS: METOPROLOL TARTRATE PF/INJ 5 MG/5 ML SDV IV SCH ×4 (00:36→17:55)
[2018-02-23 00:47] LABS: ANION GAP 9 (5-19); BLOOD UREA NITROGEN 18 mg/dL (7-20); CALCIUM 7.8 mg/dL (8.4-10.2); CARBON DIOXIDE 22 mmol/L (22-30); CHLORIDE 112 mmol/L (98-107); GLUCOSE 215 mg/dL (75-110); POTASSIUM 3.4 mmol/L (3.6-5.0)
[2018-02-23] MEDS: MAGNESIUM SULFATE/D5W 1 GM/100 ML RTUPB IV SCH ×2 (02:49→05:02)
[2018-02-23] MEDS: POTASSI CL 20 MEQ/50 ML RIDER 20 MEQ/50 ML RTUPB IV SCH ×2 (02:50→05:02)
[2018-02-23] MEDS: IPRATROPIUM/ALBUTEROL 0.5-2.5 MG/3 ML AMPUL NEB PRN ×3 (02:59→23:47)
[2018-02-23] MEDS: METRONIDAZOLE 500 MG/NS RTU 500 MG/100 ML RTUPB IV SCH ×3 (04:04→15:25)
[2018-02-23] MEDS ORDERED: FUROSEMIDE INJ/PF 20 MG/2 ML SDV IV ONE (04:40)
[2018-02-23] MEDS: INSULIN LISPRO 100 UNIT/ML 3 ML VIAL SUBCUT PRN (06:23)
[2018-02-23] MEDS: VANCOMYCIN HCL 750 MG in DEXTROSE 5%-WATER 250 ML IV SCH ×2 (08:51→20:37)
[2018-02-23] MEDS: TIOTROPIUM BROMIDE DPI 5 CAP/KIT (18 MCG/CAP) IH SCH (09:59)
[2018-02-23] MEDS: SALMETEROL XINAFOATE DISKUS 50 MCG/1 DOSE 28 DOSE IH SCH ×2 (09:59→21:09)
[2018-02-23] MEDS: CEFEPIME 2 GM/D5W RTU 2 GM/50 ML RTUPB IV SCH ×2 (10:41→21:47)
[2018-02-23] MEDS: MULTIVITAMIN TABLET PO SCH (10:42)
[2018-02-23 11:05] LABS: HEMATOCRIT 28.4 % (37.9-51.0); HEMOGLOBIN 9.7 g/dL (13.5-17.0); MEAN CORPUSCULAR HEMOGLOBIN 34.5 pg (27.0-33.4); MEAN CORPUSCULAR HGB CONC 34.2 g/dL (32.0-36.0); MEAN CORPUSCULAR VOLUME 101 fl (80-97); PLATELET COUNT 183 10^3/uL (150-450); RED BLOOD COUNT 2.83 10^6/uL (4.35-5.55); RED CELL DISTRIBUTION WIDTH 15.2 % (11.5-14.0); WHITE BLOOD COUNT 9.5 10^3/uL (4.0-10.5)
[2018-02-23 12:27] LABS: ALANINE AMINOTRANSFERASE 34 U/L (21-72); ALBUMIN 2.8 g/dL (3.5-5.0); ALKALINE PHOSPHATASE 63 U/L (38-126); ANION GAP 10 (5-19); ASPARTATE AMINO TRANSFERASE 27 U/L (17-59); BILIRUBIN,DIRECT 0.4 mg/dL (0.0-0.4); BILIRUBIN,TOTAL 0.7 mg/dL (0.2-1.3); BLOOD UREA NITROGEN 17 mg/dL (7-20); CALCIUM 7.9 mg/dL (8.4-10.2); CARBON DIOXIDE 26 mmol/L (22-30); CHLORIDE 110 mmol/L (98-107); GLUCOSE 154 mg/dL (75-110); POTASSIUM 3.5 mmol/L (3.6-5.0); SODIUM 146.2 mmol/L (137-145); TOTAL PROTEIN 5.4 g/dL (6.3-8.2)
[2018-02-23] MEDS ORDERED: PROMETHAZINE HCL INJ 25 MG/1 ML VIAL IV PRN (12:30)
[2018-02-23] MEDS ORDERED: ONDANSETRON HCL INJ/PF 4 MG/2 ML SDV IV PRN (12:30)
[2018-02-23] MEDS: DEXTROSE 5%-1/2 NORMAL SALINE 1,000 ML IV PRN (13:36)
[2018-02-23] MEDS: THIAMINE HCL 100 MG, FOLIC ACID 1 MG in NORMAL SALINE 250 ML IV SCH (21:08)
[2018-02-23] MEDS: LORAZEPAM INJ 2 MG/1 ML VIAL IV PRN (22:43)
[2018-02-24] MEDS: METOPROLOL TARTRATE PF/INJ 5 MG/5 ML SDV IV SCH ×5 (00:16→19:26)
--- NOTE | 2018-02-24 00:49 | PDOC PROGRESS REPORT ---
Subjective Progress Note for:: 02/23/18 Subjective:: 83 y.o. M admitted to [facility] with a chief complaint of weakness. PMH includes COPD , DM, HLD, and chronic ETOH use. Patient's family reports that he drinks 1.5 bottles of wine per day. He stopped drinking 1 week prior to admission. Proceeded to develop diarrhea and significant weakness. The patient was seen this morning on rounds. He is awake and interactive this morning, which is a significant improvement from yesterday. The patient is oriented to self and place, disoriented to time and situation. He is able to follow commands. The patient is asking for water and inquiring about when he can go home. His speech is clear and articulate, this is a significant improvement compared to the last few days. Patient remains in AFIB. Upon auscultation, lungs are clear to auscultation. The patient is able to maintain SPO2>88% on supplemental oxygen. S1S2. No murmur, rubs, gallops. The patient removed his NG tube overnight, this is the 4th self-removal in approximately 4 days. Nursing staff conducted a bedside swallow evaluation with 90mL water and the patient was able to swallow almost the entire volume. Staff reports he did experience an episode of coughing afterwards. Plan for formal speech evaluation. No plan to replace NG at this time. Patient should remain NPO until formal evaluation. Patient's son, Tim, was updated about the patient' s condition. Reason For Visit: ACUTE RENAL FAILURE, DEHYDRATION, HYPONATREMIA Physical Exam Vital Signs: Temp Pulse Resp BP Pulse Ox 97.7 F 90 17 117/71 98 02/23/18 20:00 02/23/18 23:47 02/23/18 23:47 02/23/18 20:00 02/24/18 00:03 Intake & Output 02/22/18 02/23/18 02/24/18 06:59 06:59 06:59 Intake Total 3202.2 3149.2 2249.2 Output Total 200 200 Balance 3202.2 2949.2 2049.2 Weight 74.9 kg 74.8 kg General appearance: PRESENT: no acute distress, thin Head exam: PRESENT: atraumatic Eye exam: PRESENT: conjunctiva pink, PERRLA Mouth exam: PRESENT: moist Teeth exam: PRESENT: poor dentation Neck exam: PRESENT: full ROM Respiratory exam: PRESENT: clear to auscultation tanvi, symmetrical, unlabored Cardiovascular exam: PRESENT: irregular rhythm - AFIB Pulses: PRESENT: normal radial pulses, normal dorsalis pedis pul Vascular exam: PRESENT: normal capillary refill GI/Abdominal exam: PRESENT: normal bowel sounds, soft. ABSENT: tenderness Rectal exam: PRESENT: deferred Extremities exam: ABSENT: joint swelling, pedal edema Musculoskeletal exam: ABSENT: ambulatory - UNSAFE TO AMBULATE, EVEN WITH ASSISTANCE - PER PT, tenderness Neurological exam: PRESENT: alert, awake, oriented to person, oriented to place. ABSENT: oriented to time, oriented to situation Skin exam: PRESENT: dry, intact, normal color, warm Results Laboratory Results: 02/23/18 10:44 02/23/18 11:54 02/23/18 02/23/18 02/23/18 00:11 10:44 10:44 WBC 9.5 RBC 2.83 L Hgb 9.7 L Hct 28.4 L MCV 101 H MCH 34.5 H MCHC 34.2 RDW 15.2 H Plt Count 183 Sodium 143.0 Cancelled Potassium 3.4 L Cancelled Chloride 112 H Cancelled Carbon Dioxide 22 Cancelled Anion Gap 9 Cancelled BUN 18 Cancelled Creatinine 0.64 Cancelled Est GFR ( Amer) > 60 Cancelled Est GFR (Non-Af Amer) > 60 Cancelled Glucose 215 H Cancelled Calcium 7.8 L Cancelled Magnesium 1.4 L Cancelled Total Bilirubin Cancelled AST Cancelled ALT Cancelled Alkaline Phosphatase Cancelled Total Protein Cancelled Albumin Cancelled 02/23/18 11:54 WBC RBC Hgb Hct MCV MCH MCHC RDW Plt Count Sodium 146.2 H Potassium 3.5 L Chloride 110 H Carbon Dioxide 26 Anion Gap 10 BUN 17 Creatinine 0.69 Est GFR ( Amer) > 60 Est GFR (Non-Af Amer) > 60 Glucose 154 H Calcium 7.9 L Magnesium 1.6 Total Bilirubin 0.7 AST 27 ALT 34 Alkaline Phosphatase 63 Total Protein 5.4 L Albumin 2.8 L 02/16/18 02/16/18 02/17/18 17:14 21:45 03:42 Troponin I 0.048 0.055 0.061 NT-Pro-B Natriuret Pep 02/17/18 02/18/18 15:44 05:16 Troponin I 0.061 NT-Pro-B Natriuret Pep 1810 H Impressions: Acute Abdomen Series 02/16/18 09:20 IMPRESSION: 1 Stable examination of the chest since the prior study dated 05/22. 2. Mild to moderate dilated colonic loops, non-obstructive pattern. 3. Prior endovascular stent graft repair for abdominal aortic aneurysm. Head CT 02/20/18 00:00 IMPRESSION: CHRONIC CHANGES OF ATROPHY AND MICROVASCULAR ISCHEMIA. NO ACUTE PROCESS. EVIDENCE OF ACUTE STROKE: NO. Chest X-Ray 02/22/18 00:00 IMPRESSION: Similar bilateral basilar subsegmental atelectasis. No consolidation or significant pleural effusion. KUB X-Ray 02/22/18 00:00 IMPRESSION: NG tube down, appropriate. Status: Imported from PACS Assessment & Plan - Diagnosis (1) Acute renal failure (ARF) Qualifiers: Acute renal failure type: unspecified Qualified Code(s): N17.9 - Acute kidney failure, unspecified Is this a current diagnosis for this admission?: Yes Plan: Resolved. Cr now within normal limits Prerenal ARF secondary to dehydration. Unknown baseline. Initial BUN 133, creatinine 2.29, GFR 28 Currently unable to tolerate PO intake due to significant encephalopathy Continue IV fluids. Antiemetics as needed Avoid nephrotoxic medications as able. Renally dosed antibiotics. We will monitor serial chemistries. (2) Dehydration Is this a current diagnosis for this admission?: Yes Plan: plan as above (3) Encephalopathy Is this a current diagnosis for this admission?: Yes Plan: Secondary to alcohol withdrawal, infection (PNA) and overall malnutrition, Neuro exam today: SIGNIFICANTLY IMPROVED - awake and responsive, following commands, clear speech Head CT negative Continue p.o. Valium for alcohol withdrawal PRN IV Ativan for alcohol withdrawal Daily thiamine, folate and MVI IV antibiotics for bilateral pneumonia NG pulled out overnight, pending formal swallow evaluation now that mental status has improved. No plan to replace NG at this time (4) Atrial fibrillation Qualifiers: Atrial fibrillation type: unspecified Qualified Code(s): I48.91 - Unspecified atrial fibrillation Is this a current diagnosis for this admission?: Yes Plan: Atrial fibrillation; family admittedly does not know his medical history well. Rate better controlled with initiation of Lopressor. EKG shows AFIB with multiform PVCs No heart murmurs, rubs, gallops are auscultated. ECHOcardiogram completed, normal LVEF, no other significant findings Consulted cardiology, they recommended Lopressor 25mg PO q8hr EMILY-VASC score is 3 but the patient is a poor candidate for anticoagulation due to ETOH use and high risk for falls Aspirin therapy only at this time (5) PNA (pneumonia) Is this a current diagnosis for this admission?: Yes Plan: As evidence by infiltrates seen on XRAY and an increase in respiratory secretions Sputum culture ordered - results pending PRN Nasotracheal suctioning by RT CXR shows worsening PNA, particularly R infiltrate. Continue Cefepime and Vancomycin for hospital acquired PNA - DAY 3 (6) Alcohol withdrawal Qualifiers: Complication of substance-induced condition: with unspecified complication Qualified Code(s): F10.239 - Alcohol dependence with withdrawal, unspecified Is this a current diagnosis for this admission?: Yes Plan: The patient reportedly drinks 1.5 bottles of wine daily and abruptly stopped drinking alcohol about 7 days ago. Per family members, the patient has had very little intake during the 7 days prior to admission with near continuous loose stools. No known history of alcohol withdrawal seizure. The patient is placed on fall, seizure, aspiration precautions. We will continue IV maintenance fluids. Continue scheduled PO valium PRN IV Ativan for anxiety, agitation, and withdrawal symptoms. Antiemetics as needed. Daily thiamine, folate, mvi Discharge planning is consulted. 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 Hypoglycemia protocols in place. (8) Gastroenteritis Is this a current diagnosis for this admission?: Yes Plan: Resolved. Alcoholic gastroenteritis with report of melena. No episodes of bloody bowel movements while inpatient. Continue IV fluids. As needed antiemetics. When possible, obtain stool for culture to rule out additional causes as well as to test for blood. Continue IV Protonix twice daily. Acute abdomen xray showing moderately dilated colon, the patient 7 days of metronidazole. (9) Hyperlipidemia Is this a current diagnosis for this admission?: No Plan: History of HLD Home dose atorvastatin (10) COPD (chronic obstructive pulmonary disease) Qualifiers: COPD type: unspecified COPD Qualified Code(s): J44.9 - Chronic obstructive pulmonary disease, unspecified Is this a current diagnosis for this admission?: Yes Plan: History of COPD; stable and without exacerbation at this time. Reportedly, the patient was recently treated with azithromycin and a steroid pack for COPD exacerbation. Supplemental oxygen as needed to maintain SPO2 greater than 88%. As needed nebulizer treatments are available. No indication for steroids at this time. (11) Hypokalemia Is this a current diagnosis for this admission?: Yes Plan: Resolved. Secondary to poor PO intake and overall malnutrition Replacement with IV KCL (12) Hypernatremia Is this a current diagnosis for this admission?: Yes Plan: Resolved. Secondary to dehydration Na peaked at 152 Serum Osm 325 Continue D5 1/2NS IVF (13) Nutritional deficiency Is this a current diagnosis for this admission?: Yes Plan: Unable to tolerate PO intake secondary to significant encephalopathy due to ETOH withdrawal and PNA Family has stated they would consider a PEG if necessary NG tube placed 02/20, but patient has removed multiple times already Patient is much more awake and alert today Requested formal speech evaluation, appreciate their recommendations (14) Full code status Is this a current diagnosis for this admission?: Yes Plan: Discussed plan of care and CODE STATUS with patient's . She wishes to pursue all available medical treatment at this time. Patient told (in the past when more lucid) that he does not want a feeding tube or shelter At this time, the states she does not want to pursue palliative care Patient will remain full code. - Time Time Spent with patient: 15-24 minutes Medications reviewed and adjusted accordingly: Yes Anticipated discharge: Acute Rehab - Inpatient Certification Based on my medical assessment, after consideration of the patient's comorbidities, presenting symptoms, or acuity I expect that the services needed warrant INPATIENT care.: Yes I certify that my determination is in accordance with my understanding of Medicare's requirements for reasonable and necessary INPATIENT services [42 CFR 412.3e].: Yes Medical Necessity: Risk of Complication if Not Cared For in Hospital - Plan Summary Plan Summary: CONTINUE IVF. PATIENT WAITING FOR FORMAL SPEECH EVALUATION. PT/OT.
--- NOTE | 2018-02-24 00:50 | RADIOLOGY REPORT (SQ) ---
EXAM DESCRIPTION: XR CHEST 1 VIEW COMPLETED DATE/TME: 02/24/2018 00:00 CLINICAL HISTORY: 83 years Male, sob COMPARISON: 2 days prior. NUMBER OF VIEWS/TECHNIQUE: 1/AP FINDINGS: Small atelectasis or scar bilateral lower lungs, small obscuration/effusion of the right costophrenic angle, surgical clips of the lateral right mid hemithorax, mild chronic deformity of the lateral right mid hemithorax. No pneumothorax. No acute bone defect. Absence of previously enteric tube. IMPRESSION: Interval line/tube modification.
[2018-02-24] MEDS: DEXTROSE 5%-1/2 NORMAL SALINE 1,000 ML IV PRN (05:13)
[2018-02-24] MEDS ORDERED: DEXTROSE 40% GEL 15 GM TUBE PO PRN (05:47)
[2018-02-24] MEDS ORDERED: GLUCAGON,HUMAN RECOMB 1 MG INJ SUBCUT PRN (05:47)
[2018-02-24] MEDS ORDERED: DEXTROSE 50%-WATER 25 GM/50 ML DISP.SYRIN IV PRN ×2 (05:47)
[2018-02-24 06:54] LABS: HEMOGLOBIN 9.7 g/dL (13.5-17.0); MEAN CORPUSCULAR HEMOGLOBIN 34.8 pg (27.0-33.4); MEAN CORPUSCULAR HGB CONC 34.6 g/dL (32.0-36.0); MEAN CORPUSCULAR VOLUME 100 fl (80-97); PLATELET COUNT 166 10^3/uL (150-450); RED BLOOD COUNT 2.79 10^6/uL (4.35-5.55); RED CELL DISTRIBUTION WIDTH 15.1 % (11.5-14.0); WHITE BLOOD COUNT 8.3 10^3/uL (4.0-10.5)
[2018-02-24 07:44] LABS: ALANINE AMINOTRANSFERASE 38 U/L (21-72); ALBUMIN 2.8 g/dL (3.5-5.0); ALKALINE PHOSPHATASE 67 U/L (38-126); ANION GAP 8 (5-19); ASPARTATE AMINO TRANSFERASE 23 U/L (17-59); BILIRUBIN,DIRECT 0.3 mg/dL (0.0-0.4); BILIRUBIN,TOTAL 0.7 mg/dL (0.2-1.3); BLOOD UREA NITROGEN 16 mg/dL (7-20); CALCIUM 7.7 mg/dL (8.4-10.2); CARBON DIOXIDE 26 mmol/L (22-30); CHLORIDE 109 mmol/L (98-107); GLUCOSE 158 mg/dL (75-110); POTASSIUM 3.4 mmol/L (3.6-5.0); SODIUM 143.3 mmol/L (137-145); TOTAL PROTEIN 5.1 g/dL (6.3-8.2)
[2018-02-24] MEDS ORDERED: ASPIRIN 81 MG TABLET, ENT COATED PO SCH (10:00)
[2018-02-24] MEDS: VANCOMYCIN HCL 750 MG in DEXTROSE 5%-WATER 250 ML IV SCH ×2 (10:52→20:34)
[2018-02-24] MEDS: SALMETEROL XINAFOATE DISKUS 50 MCG/1 DOSE 28 DOSE IH SCH ×2 (10:57→22:17)
[2018-02-24] MEDS: TIOTROPIUM BROMIDE DPI 5 CAP/KIT (18 MCG/CAP) IH SCH (10:58)
[2018-02-24] MEDS: ENOXAPARIN SODIUM INJ 30 MG/0.3 ML DISP.SYRIN SUBCUT SCH (11:03)
[2018-02-24] MEDS: CEFEPIME 2 GM/D5W RTU 2 GM/50 ML RTUPB IV SCH ×2 (12:44→22:18)
[2018-02-24] MEDS: MULTIVITAMIN TABLET PO SCH (12:44)
[2018-02-24] MEDS: IPRATROPIUM/ALBUTEROL 0.5-2.5 MG/3 ML AMPUL NEB PRN (14:01)
[2018-02-24] MEDS ORDERED: FUROSEMIDE INJ/PF 20 MG/2 ML SDV IV ONE (14:22)
[2018-02-24 15:08] LABS: ARTERIAL BLOOD BASE EXCESS 1.1 mmol/L; ARTERIAL BLOOD H2CO3 1.25 mmol/L (1.05-1.35); ARTERIAL BLOOD HCO3 25.8 mmol/L (20-26); ARTERIAL BLOOD O2 SATURATION 97.1 % (94-98); ARTERIAL BLOOD PCO2 41.4 mmHg (35-45); ARTERIAL BLOOD PH 7.41 (7.35-7.45); ARTERIAL BLOOD PO2 91.6 mmHg (80-100)
[2018-02-24 15:09] LABS: ARTERIAL BLOOD FIO2 4L
[2018-02-24] MEDS: DIAZEPAM 2 MG TABLET PO PRN (15:37)
--- NOTE | 2018-02-24 17:39 | PDOC PROGRESS REPORT ---
Subjective Progress Note for:: 02/24/18 Subjective:: The patient is an 83-year-old male with past medical history of COPD, diabetes mellitus, hyperlipidemia, chronic EtOH use who was admitted on 02/16/18 for generalized weakness. The patient was seen on morning rounds. He is found resting in bed comfortably on room air. He was awake when I entered the room and was oriented to self and place. He will was disoriented to time and situation, but corrected easily for a brief period of time prior to becoming repetitive and his questions. His speech was clear and per nursing is much improved from yesterday. The patient denies headache, dizziness, chest pain, palpitations, dyspnea, orthopnea, abdominal pain, nausea, vomiting, and diarrhea. He has no questions or concerns today other than asking to be discharged to home. Per nursing, the patient became short of breath following physical therapy. Other vital signs remained stable. Currently maintaining oxygen saturations greater than 92% on supplemental oxygen via nasal cannula. He also request that his AP advance of that he has been cleared by speech therapy. Otherwise, no new concerns. Reason For Visit: ACUTE RENAL FAILURE, DEHYDRATION, HYPONATREMIA Physical Exam Vital Signs: Temp Pulse Resp BP Pulse Ox 97.7 F 29 L 26 H 104/67 97 02/24/18 15:24 02/24/18 15:24 02/24/18 15:24 02/24/18 15:24 02/24/18 15:24 Intake & Output 02/23/18 02/24/18 02/25/18 06:59 06:59 06:59 Intake Total 3149.2 3069.2 Output Total 200 350 50 Balance 2949.2 2719.2 -50 Weight 74.8 kg 73.5 kg General appearance: PRESENT: no acute distress, cooperative, disheveled, well- developed, well-nourished Head exam: PRESENT: atraumatic, normocephalic Eye exam: PRESENT: conjunctiva pink, EOMI, PERRLA. ABSENT: scleral icterus Ear exam: PRESENT: normal external ear exam Mouth exam: PRESENT: moist, tongue midline Teeth exam: PRESENT: edentulous Neck exam: ABSENT: carotid bruit, JVD, lymphadenopathy, thyromegaly Respiratory exam: PRESENT: clear to auscultation tanvi, decreased breath sounds - Bibasilar, symmetrical, unlabored. ABSENT: rales, rhonchi, wheezes Cardiovascular exam: PRESENT: irregular rhythm, +S1. ABSENT: diastolic murmur, rubs, systolic murmur Pulses: PRESENT: normal dorsalis pedis pul Vascular exam: PRESENT: normal capillary refill GI/Abdominal exam: PRESENT: normal bowel sounds, soft. ABSENT: distended, guarding, mass, organolmegaly, rebound, tenderness Rectal exam: PRESENT: deferred Extremities exam: PRESENT: full ROM. ABSENT: calf tenderness, clubbing, pedal edema Neurological exam: PRESENT: alert, awake, oriented to person, oriented to place , CN II-XII grossly intact, other - Forgetful and repetitive. ABSENT: oriented to time, oriented to situation, motor sensory deficit Psychiatric exam: PRESENT: appropriate affect, normal mood. ABSENT: homicidal ideation, suicidal ideation Skin exam: PRESENT: dry, intact, warm. ABSENT: cyanosis, rash Results Laboratory Results: 02/24/18 05:39 02/24/18 07:17 02/24/18 02/24/18 02/24/18 05:39 05:39 05:39 WBC 8.3 RBC 2.79 L Hgb 9.7 L Hct 28.0 L MCV 100 H MCH 34.8 H MCHC 34.6 RDW 15.1 H Plt Count 166 Carbonic Acid HCO3/H2CO3 Ratio ABG pH ABG pCO2 ABG pO2 ABG HCO3 ABG O2 Saturation ABG Base Excess FiO2 Sodium Cancelled Potassium Cancelled Chloride Cancelled Carbon Dioxide Cancelled Anion Gap Cancelled BUN Cancelled Creatinine Cancelled Est GFR ( Amer) Cancelled Est GFR (Non-Af Amer) Cancelled Glucose Cancelled Calcium Cancelled Magnesium Cancelled Total Bilirubin Cancelled AST Cancelled ALT Cancelled Alkaline Phosphatase Cancelled Total Protein Cancelled Albumin Cancelled TSH Cancelled 02/24/18 02/24/18 02/24/18 07:17 07:17 14:40 WBC RBC Hgb Hct MCV MCH MCHC RDW Plt Count Carbonic Acid 1.25 HCO3/H2CO3 Ratio 20:1 ABG pH 7.41 ABG pCO2 41.4 ABG pO2 91.6 ABG HCO3 25.8 ABG O2 Saturation 97.1 ABG Base Excess 1.1 FiO2 4L Sodium 143.3 Potassium 3.4 L Chloride 109 H Carbon Dioxide 26 Anion Gap 8 BUN 16 Creatinine 0.66 Est GFR ( Amer) > 60 Est GFR (Non-Af Amer) > 60 Glucose 158 H Calcium 7.7 L Magnesium 1.6 Total Bilirubin 0.7 AST 23 ALT 38 Alkaline Phosphatase 67 Total Protein 5.1 L Albumin 2.8 L TSH 0.77 02/16/18 02/16/18 02/17/18 17:14 21:45 03:42 Troponin I 0.048 0.055 0.061 NT-Pro-B Natriuret Pep 02/17/18 02/18/18 02/24/18 15:44 05:16 00:19 Troponin I 0.061 NT-Pro-B Natriuret Pep 1810 H 08069 H Impressions: Acute Abdomen Series 02/16/18 09:20 IMPRESSION: 1 Stable examination of the chest since the prior study dated 05/22. 2. Mild to moderate dilated colonic loops, non-obstructive pattern. 3. Prior endovascular stent graft repair for abdominal aortic aneurysm. Head CT 02/20/18 00:00 IMPRESSION: CHRONIC CHANGES OF ATROPHY AND MICROVASCULAR ISCHEMIA. NO ACUTE PROCESS. EVIDENCE OF ACUTE STROKE: NO. KUB X-Ray 02/22/18 00:00 IMPRESSION: NG tube down, appropriate. Chest X-Ray 02/24/18 00:00 IMPRESSION: Interval line/tube modification. Assessment & Plan - Diagnosis (1) Acute renal failure (ARF) Qualifiers: Acute renal failure type: unspecified Qualified Code(s): N17.9 - Acute kidney failure, unspecified Is this a current diagnosis for this admission?: Yes Plan: Resolved; creatinine is now normal at 0.66. Acute renal failure was prerenal secondary to dehydration. The patient did pass swallow evaluation today; will encourage p.o. fluids. Maintenance IV fluids are discontinued; patient is receiving 1L of IV fluids in the form of his antibiotics. Antibiotics are renally dosed per pharmacy. Otherwise, we will continue to avoid nephrotoxic medications as able. We will continue to monitor daily chemistries. (2) Atrial fibrillation Qualifiers: Atrial fibrillation type: unspecified Qualified Code(s): I48.91 - Unspecified atrial fibrillation Is this a current diagnosis for this admission?: Yes Plan: Atrial fibrillation; unknown duration. Family admittedly do not know his medical history well. EKG demonstrated A. fib with multiform PVCs. Echocardiogram revealed a normal LVEF and no other significant findings. Cardiology has been consulted; appreciate their assistance. Continue daily aspirin. Continue Lopressor 2.5 mg IV every 6 hours; cardiology recommends transition to Lopressor 25 mg p.o. every 8 hours once tolerating p.o. Chest vascular 3; patient is a poor candidate for anticoagulation due to chronic EtOH use and multiple recent falls. (3) Alcohol withdrawal Qualifiers: Complication of substance-induced condition: with unspecified complication Qualified Code(s): F10.239 - Alcohol dependence with withdrawal, unspecified Is this a current diagnosis for this admission?: Yes Plan: The patient reportedly drinks 1-1/2 bottles of wine daily and abruptly stopped drinking alcohol about 7 days prior to admission. No known history of alcohol withdrawal seizure. We will continueduled IV maintenance fluids. Have successfully weaned to p.o. Valium as needed for anxiety/agitation/ withdrawal. Antiemetics as needed. Daily thiamine, folate, multivitamin. Discharge planning is consulted. (4) Type 2 diabetes mellitus Qualifiers: Diabetes mellitus termite control service representative insulin use: without termite control service representative use Is this a current diagnosis for this admission?: No Plan: The patient is placed on a consistent carb diet. We will check Accu-Cheks before meals and at bedtime and provide Humalog sliding scale coverage. Hypoglycemia protocols in place. (5) COPD (chronic obstructive pulmonary disease) Qualifiers: COPD type: unspecified COPD Qualified Code(s): J44.9 - Chronic obstructive pulmonary disease, unspecified Is this a current diagnosis for this admission?: Yes Plan: History of COPD; stable and without exacerbation at this time. Provide supplemental oxygen as needed to maintain oxygen saturations greater than 88%. As needed nebulizer treatments are available. No indication for steroids at this time. (6) Hyperlipidemia Is this a current diagnosis for this admission?: No Plan: Continue home dose atorvastatin. (7) Dehydration Is this a current diagnosis for this admission?: Yes Plan: Resolved; Plan as above. (8) Gastroenteritis Is this a current diagnosis for this admission?: Yes Plan: Resolved. (9) Alcohol dependence, continuous Is this a current diagnosis for this admission?: Yes Plan: Plan as above. (10) Encephalopathy Is this a current diagnosis for this admission?: Yes Plan: Secondary to alcohol withdrawal, chronic alcoholism, infection oh (pneumonia), malnutrition, prolonged hospital admission, and likely underlying dementia. Neuro exam today appears to be significantly improved as compared to progress note from yesterday. This is confirmed by nursing. Head CT was negative. We will continue as needed p.o. Valium for alcohol withdrawal. Continue daily thiamine, folate, and multivitamin. Antibiotic therapies as outlined elsewhere. Supportive care; fall, aspiration precautions. (11) Nutritional deficiency Is this a current diagnosis for this admission?: Yes Plan: Speech therapy cleared patient for thin liquids with a ground meat diet today. He is placed on a consistent carb/cardiac diet. Aspiration precautions. May require encouraging/prompting by nursing staff and assistance at meals. We will continue to monitor closely; patient has removed multiple NG tube. Although the family indicates that they would consider a PEG if necessary, I would have similar concerns that the patient would also remove this tube. As the patient's mental status appears to be improving rapidly over the last 24- 48 hours, anticipate that he will begin taking in more p.o. fluids and nutrition. (12) PNA (pneumonia) Is this a current diagnosis for this admission?: Yes Plan: As evidenced by infiltrates noted on x-ray. Repeat chest x-ray today is benign. Sputum culture is pending; does not appear to have been collected yet. Blood cultures (02/16/18) no growth at final. The patient remains afebrile with normal WBCs. However, is noted to be intermittently tachypneic with occasional increased supplemental oxygen needs. Potentially imaging reflects atelectasis. Symptoms and vital signs may also be attributed to mild COPD flare versus CHF exacerbation. Continue cefepime and vancomycin for hospital-acquired pneumonia; day #4. We will repeat blood cultures; hopefully can de-escalate vancomycin when negative at 48 hours. We will further de-escalate cefepime based on critical response and culture sensitivities. (13) CHF (congestive heart failure) Qualifiers: Heart failure type: diastolic Heart failure chronicity: unspecified Qualified Code(s): I50.30 - Unspecified diastolic (congestive) heart failure Is this a current diagnosis for this admission?: Yes Plan: Echocardiogram revealed preserved ejection fraction. Chest x-ray today is clear. ProBNP (02/24/18) elevated to 10 K. Per nursing, the patient is tachypneic with increased oxygen needs following physical therapy. This could be related to deconditioning as it was his first day working with physical therapy versus possible CHF. His lungs do sound clear, though diminished at bases, and he is without peripheral edema. As the patient is noted to be up 5 kg and strict I&Os were not monitored due to incontinence, there is some potential for fluid volume overload, though mild as the patient was significantly dehydrated upon arrival. Will provide IV Lasix 20 mg 1 and will begin gentle diuresing with IV Lasix 10 mg twice daily. Cardiac diet. Daily weights, Strict I&Os (order to bladder scan q6 and straight cath as necessary). Repeat BNP with am labs. (14) Full code status Is this a current diagnosis for this admission?: Yes - Time Time Spent with patient: 35 or more minutes Medications reviewed and adjusted accordingly: Yes
[2018-02-24] MEDS ORDERED: FUROSEMIDE INJ/PF 20 MG/2 ML SDV IV SCH (22:00)
[2018-02-24] MEDS: FUROSEMIDE INJ/PF 20 MG/2 ML SDV IV SCH (22:16)
[2018-02-24] MEDS: THIAMINE HCL 100 MG, FOLIC ACID 1 MG in NORMAL SALINE 250 ML IV SCH (22:18)
[2018-02-25] MEDS: METOPROLOL TARTRATE PF/INJ 5 MG/5 ML SDV IV SCH ×4 (02:05→18:10)
[2018-02-25 06:50] LABS: HEMATOCRIT 33.4 % (37.9-51.0); HEMOGLOBIN 11.4 g/dL (13.5-17.0); MEAN CORPUSCULAR HEMOGLOBIN 34.5 pg (27.0-33.4); MEAN CORPUSCULAR HGB CONC 34.2 g/dL (32.0-36.0); MEAN CORPUSCULAR VOLUME 101 fl (80-97); PLATELET COUNT 196 10^3/uL (150-450); RED BLOOD COUNT 3.31 10^6/uL (4.35-5.55); RED CELL DISTRIBUTION WIDTH 14.9 % (11.5-14.0); WHITE BLOOD COUNT 8.5 10^3/uL (4.0-10.5)
[2018-02-25 07:07] LABS: ANION GAP 9 (5-19); BLOOD UREA NITROGEN 15 mg/dL (7-20); CALCIUM 8.2 mg/dL (8.4-10.2); CARBON DIOXIDE 32 mmol/L (22-30); CHLORIDE 101 mmol/L (98-107); GLUCOSE 130 mg/dL (75-110); POTASSIUM 3.5 mmol/L (3.6-5.0)
[2018-02-25] MEDS: VANCOMYCIN HCL 750 MG in DEXTROSE 5%-WATER 250 ML IV SCH ×2 (07:34→20:22)
[2018-02-25] MEDS: ASPIRIN 81 MG TABLET, CHEWABLE PO SCH (09:48)
[2018-02-25] MEDS: MULTIVITAMINS W-IRON TABLET, CHEWABLE PO SCH (09:48)
[2018-02-25] MEDS: CEFEPIME 2 GM/D5W RTU 2 GM/50 ML RTUPB IV SCH ×2 (09:49→21:06)
[2018-02-25] MEDS: ACETAMINOPHEN 325 MG TABLET NG PRN ×2 (09:49→15:50)
[2018-02-25] MEDS: DIAZEPAM 2 MG TABLET PO PRN (09:49)
[2018-02-25] MEDS: FUROSEMIDE INJ/PF 20 MG/2 ML SDV IV SCH ×2 (09:50→21:06)
[2018-02-25] MEDS: SALMETEROL XINAFOATE DISKUS 50 MCG/1 DOSE 28 DOSE IH SCH (09:50)
[2018-02-25] MEDS: TIOTROPIUM BROMIDE DPI 5 CAP/KIT (18 MCG/CAP) IH SCH (09:50)
[2018-02-25] MEDS: ENOXAPARIN SODIUM INJ 30 MG/0.3 ML DISP.SYRIN SUBCUT SCH (10:03)
[2018-02-25] MEDS: LEVALBUTEROL HCL NEB 1.25 MG/3 ML AMPUL NEB PRN (10:18)
[2018-02-25] MEDS ORDERED: IPRATROPIUM/ALBUTEROL 0.5-2.5 MG/3 ML AMPUL NEB ONE (11:00)
[2018-02-25] MEDS: PREDNISONE 20 MG TABLET PO SCH (11:54)
[2018-02-25] MEDS ORDERED: GUAIFENESIN 600 MG TABLET.SA PO ONE (13:30)
[2018-02-25] MEDS: IPRATROPIUM/ALBUTEROL 0.5-2.5 MG/3 ML AMPUL NEB SCH ×2 (15:50→23:56)
[2018-02-25] MEDS: TAMSULOSIN HCL 0.4 MG CAP.SR.24H PO SCH (18:06)
--- NOTE | 2018-02-25 18:55 | PDOC PROGRESS REPORT ---
Subjective Progress Note for:: 02/25/18 Subjective:: The patient is an 83-year-old male with past medical history of COPD, diabetes mellitus, hyperlipidemia, chronic EtOH use who was admitted on 02/16/18 for generalized weakness. The patient was seen on morning rounds. He is found resting in bed comfortably on room air. He was awake when I entered the room and was oriented to self and place. He remains disoriented to time and situation, but corrects easily for a brief period of time. He appears to have increased alertness from yesterday, more detailed conversations, but remains repetitive in his statements and questions. He complains of need for intermittent catheterization; does request to have a "permanent tube" placed. He also complains of slight dyspnea and wheezing today. He makes multiple attempts to ask for prednisone; his intent was clear although his sentence structure was jumbled. The patient denies headache, dizziness, chest pain, palpitations, dyspnea, orthopnea, abdominal pain, nausea, vomiting, and diarrhea. He he has no questions or concerns today other than asking to be discharged to home. Per nursing, the patient has had multiple incontinent urinary incontinent episodes, but frequently complains of need to void and bladder scans remain elevated. They appreciate the order for Funes catheter for strict I&Os. Received a phone call from nursing this afternoon at approximately 4 PM stating that the patient's was present and would like an update, unfortunately, she left prior to my opportunity to visit the room. Will plan on calling her first thing tomorrow morning. Reason For Visit: ACUTE RENAL FAILURE, DEHYDRATION, HYPONATREMIA Physical Exam Vital Signs: Temp Pulse Resp BP Pulse Ox 97.8 F 72 18 110/75 97 02/25/18 16:00 02/25/18 16:00 02/25/18 16:00 02/25/18 16:00 02/25/18 16:00 Intake & Output 02/24/18 02/25/18 02/26/18 06:59 06:59 06:59 Intake Total 3069.2 1630.2 Output Total 350 1300 Balance 2719.2 330.2 Weight 73.5 kg 77.4 kg General appearance: PRESENT: no acute distress, cooperative, hard of hearing, well-developed, well-nourished Head exam: PRESENT: atraumatic, normocephalic Eye exam: PRESENT: conjunctiva pink, EOMI, PERRLA. ABSENT: scleral icterus Ear exam: PRESENT: normal external ear exam Mouth exam: PRESENT: moist, tongue midline Teeth exam: PRESENT: poor dentation Neck exam: ABSENT: carotid bruit, JVD, lymphadenopathy, thyromegaly Respiratory exam: PRESENT: decreased breath sounds - bibasilar, rhonchi - Occasional, symmetrical, unlabored, wheezes - Slight end expiratory wheezing throughout, other - Supplemental oxygen via nasal cannula 2lpm. ABSENT: rales Cardiovascular exam: PRESENT: irregular rhythm, +S1, +S2. ABSENT: diastolic murmur, rubs, systolic murmur Pulses: PRESENT: normal dorsalis pedis pul Vascular exam: PRESENT: normal capillary refill GI/Abdominal exam: PRESENT: normal bowel sounds, soft. ABSENT: distended, guarding, mass, organolmegaly, rebound, tenderness Rectal exam: PRESENT: deferred Extremities exam: PRESENT: full ROM. ABSENT: calf tenderness, clubbing, pedal edema Neurological exam: PRESENT: alert, awake, oriented to person, oriented to place , CN II-XII grossly intact, other - Forgetful and repetitive; increased complexity of thought and statements today. ABSENT: oriented to time, oriented to situation, motor sensory deficit Psychiatric exam: PRESENT: anxious, appropriate affect, normal mood. ABSENT: homicidal ideation, suicidal ideation Skin exam: PRESENT: dry, intact, warm. ABSENT: cyanosis, rash Results Laboratory Results: 02/25/18 06:20 02/25/18 06:20 02/25/18 02/25/18 06:20 06:20 WBC 8.5 RBC 3.31 L Hgb 11.4 L Hct 33.4 L MCV 101 H MCH 34.5 H MCHC 34.2 RDW 14.9 H Plt Count 196 Sodium 142.0 Potassium 3.5 L Chloride 101 Carbon Dioxide 32 H Anion Gap 9 BUN 15 Creatinine 0.74 Est GFR ( Amer) > 60 Est GFR (Non-Af Amer) > 60 Glucose 130 H Calcium 8.2 L 02/16/18 02/16/18 02/17/18 17:14 21:45 03:42 Troponin I 0.048 0.055 0.061 NT-Pro-B Natriuret Pep 02/17/18 02/18/18 02/24/18 15:44 05:16 00:19 Troponin I 0.061 NT-Pro-B Natriuret Pep 1810 H 95457 H 02/25/18 06:20 Troponin I NT-Pro-B Natriuret Pep 08543 H Impressions: Acute Abdomen Series 02/16/18 09:20 IMPRESSION: 1 Stable examination of the chest since the prior study dated 05/22. 2. Mild to moderate dilated colonic loops, non-obstructive pattern. 3. Prior endovascular stent graft repair for abdominal aortic aneurysm. Head CT 02/20/18 00:00 IMPRESSION: CHRONIC CHANGES OF ATROPHY AND MICROVASCULAR ISCHEMIA. NO ACUTE PROCESS. EVIDENCE OF ACUTE STROKE: NO. KUB X-Ray 02/22/18 00:00 IMPRESSION: NG tube down, appropriate. Chest X-Ray 02/24/18 00:00 IMPRESSION: Interval line/tube modification. Assessment & Plan - Diagnosis (1) Acute renal failure (ARF) Qualifiers: Acute renal failure type: unspecified Qualified Code(s): N17.9 - Acute kidney failure, unspecified Is this a current diagnosis for this admission?: Yes Plan: Resolved; creatinine is now normal at 0.74. Acute renal failure was prerenal secondary to dehydration. The patient did pass swallow evaluation today; will encourage p.o. fluids. Maintenance IV fluids are discontinued; patient is receiving 1L of IV fluids in the form of his antibiotics. Antibiotics are renally dosed per pharmacy. Otherwise, we will continue to avoid nephrotoxic medications as able. We will continue to monitor daily chemistries. (2) Atrial fibrillation Qualifiers: Atrial fibrillation type: unspecified Qualified Code(s): I48.91 - Unspecified atrial fibrillation Is this a current diagnosis for this admission?: Yes Plan: Atrial fibrillation; unknown duration. Family admittedly do not know his medical history well. EKG demonstrated A. fib with multiform PVCs. Echocardiogram revealed a normal LVEF and no other significant findings. Cardiology has been consulted; appreciate their assistance. Continue daily aspirin. Continue Lopressor 2.5 mg IV every 6 hours; cardiology recommends transition to Lopressor 25 mg p.o. every 8 hours once tolerating p.o. Chest vascular 3; patient is a poor candidate for anticoagulation due to chronic EtOH use and multiple recent falls. (3) Alcohol withdrawal Qualifiers: Complication of substance-induced condition: with unspecified complication Qualified Code(s): F10.239 - Alcohol dependence with withdrawal, unspecified Is this a current diagnosis for this admission?: Yes Plan: Acute withdrawal has passed. The patient reportedly drinks 1-1/2 bottles of wine daily and abruptly stopped drinking alcohol about 7 days prior to admission. No known history of alcohol withdrawal seizure. Have successfully weaned to p.o. Valium as needed for anxiety/agitation/ withdrawal. Antiemetics as needed. Daily thiamine, folate, multivitamin. Discharge planning is consulted. (4) Type 2 diabetes mellitus Qualifiers: Diabetes mellitus shelter insulin use: without production shift supervisor use Is this a current diagnosis for this admission?: No Plan: The patient is placed on a consistent carb diet. We will check Accu-Cheks before meals and at bedtime and provide Humalog sliding scale coverage. Hypoglycemia protocols in place. (5) COPD (chronic obstructive pulmonary disease) Qualifiers: COPD type: unspecified COPD Qualified Code(s): J44.9 - Chronic obstructive pulmonary disease, unspecified Is this a current diagnosis for this admission?: Yes Plan: History of COPD; patient complains of dyspnea and requests prednisone. He is noted to have rhonchi and expiratory wheezing today. SpO2 > 92% on 2lpm. Provide supplemental oxygen as needed to maintain oxygen saturations greater than 88%. Scheduled and as needed nebulizer treatments are provided. We will start p.o. prednisone. Holding Serevent and Spiriva while receiving scheduled duo nebs. Mucinex twice daily. We will repeat chest x-ray in the morning. (6) Hyperlipidemia Is this a current diagnosis for this admission?: No Plan: Continue home dose atorvastatin. (7) Alcohol dependence, continuous Is this a current diagnosis for this admission?: Yes Plan: Plan as above. (8) Encephalopathy Is this a current diagnosis for this admission?: Yes Plan: Continues to demonstrate clinical improvement. Secondary to alcohol withdrawal, chronic alcoholism, infection oh (pneumonia), malnutrition, prolonged hospital admission, and likely underlying dementia. Head CT was negative. We will continue as needed p.o. Valium for alcohol withdrawal. Continue daily thiamine, folate, and multivitamin. Antibiotic therapies as outlined elsewhere. Supportive care; fall, aspiration precautions. (9) Nutritional deficiency Is this a current diagnosis for this admission?: Yes Plan: Speech therapy cleared patient for thin liquids with a ground meat diet; however , nursing reports concerns the patient is coughing with each swallow. We will ask speech therapy to reevaluate the patient. We will repeat chest x-ray in the morning. He is placed on a consistent carb/cardiac diet; ground meats with thin liquids. Aspiration precautions. May require encouraging/prompting by nursing staff and assistance at meals. We will continue to monitor closely; patient has removed multiple NG tube. Although the family indicates that they would consider a PEG if necessary, I would have similar concerns that the patient would also remove this tube. As the patient's mental status appears to be improving rapidly over the last 24- 48 hours, anticipate that he will begin taking in more p.o. fluids and nutrition. (10) PNA (pneumonia) Is this a current diagnosis for this admission?: Yes Plan: As evidenced by infiltrates noted on x-ray. Repeat chest x-ray was benign. Sputum culture is pending; does not appear to have been collected yet. Blood cultures (02/16/18) no growth at final. Repeat blood cultures (02/25/18) are pending. The patient remains afebrile with normal WBCs. However, is noted to be intermittently tachypneic with occasional increased supplemental oxygen needs. Potentially imaging reflects atelectasis. Symptoms and vital signs may also be attributed to mild COPD flare versus CHF exacerbation. Continue cefepime and vancomycin for hospital-acquired pneumonia; day #5. We will repeat blood cultures; hopefully can de-escalate vancomycin when negative at 48 hours. We will further de-escalate cefepime based on critical response and culture sensitivities. We will repeat chest x-ray tomorrow; if no consolidation is noted, may consider early de-escalation of antibiotics for presumed COPD as source of symptoms. However, there is now increased concern w/ regard for aspiration. (11) CHF (congestive heart failure) Qualifiers: Heart failure type: diastolic Heart failure chronicity: unspecified Qualified Code(s): I50.30 - Unspecified diastolic (congestive) heart failure Is this a current diagnosis for this admission?: Yes Plan: Echocardiogram revealed preserved ejection fraction. Chest x-ray today is clear. ProBNP (02/24/18) elevated to 14 K. As the patient is noted to be up 9 kg and strict I&Os were not monitored due to incontinence, there is some potential for fluid volume overload, though mild as the patient was significantly dehydrated upon arrival. Continue gentle diuresing with IV Lasix 10 mg twice daily; will consider increasing once 24 hours of I&Os and am CXR is reviewed. Cardiac diet. Daily weights. Strict I&Os; funes order provided to assist. (12) Dehydration Is this a current diagnosis for this admission?: Yes Plan: Resolved; Plan as above. (13) Gastroenteritis Is this a current diagnosis for this admission?: Yes Plan: Resolved. (14) Full code status Is this a current diagnosis for this admission?: Yes - Time Time Spent with patient: 25-34 minutes Medications reviewed and adjusted accordingly: Yes Anticipated discharge: Acute Rehab
[2018-02-25] MEDS: THIAMINE HCL 100 MG, FOLIC ACID 1 MG in NORMAL SALINE 250 ML IV SCH (21:08)
[2018-02-25] MEDS: GUAIFENESIN 600 MG TABLET.SA PO SCH (21:10)
[2018-02-26] MEDS: METOPROLOL TARTRATE PF/INJ 5 MG/5 ML SDV IV SCH ×4 (00:20→17:47)
[2018-02-26] MEDS: DIAZEPAM 2 MG TABLET PO PRN ×2 (00:35→12:36)
[2018-02-26] MEDS: FUROSEMIDE INJ/PF 20 MG/2 ML SDV IV SCH ×2 (00:37→09:24)
[2018-02-26 05:32] LABS: HEMATOCRIT 28.2 % (37.9-51.0); HEMOGLOBIN 9.9 g/dL (13.5-17.0); MEAN CORPUSCULAR HEMOGLOBIN 35.1 pg (27.0-33.4); MEAN CORPUSCULAR HGB CONC 34.9 g/dL (32.0-36.0); MEAN CORPUSCULAR VOLUME 101 fl (80-97); PLATELET COUNT 174 10^3/uL (150-450); RED BLOOD COUNT 2.81 10^6/uL (4.35-5.55); RED CELL DISTRIBUTION WIDTH 15.1 % (11.5-14.0); WHITE BLOOD COUNT 8.5 10^3/uL (4.0-10.5)
[2018-02-26 05:59] LABS: ANION GAP 13 (5-19); BLOOD UREA NITROGEN 24 mg/dL (7-20); CALCIUM 8.2 mg/dL (8.4-10.2); CARBON DIOXIDE 27 mmol/L (22-30); CHLORIDE 99 mmol/L (98-107); GLUCOSE 236 mg/dL (75-110); POTASSIUM 3.3 mmol/L (3.6-5.0); SODIUM 138.8 mmol/L (137-145)
[2018-02-26] MEDS: VANCOMYCIN HCL 750 MG in DEXTROSE 5%-WATER 250 ML IV SCH ×2 (07:17→20:17)
[2018-02-26] MEDS: IPRATROPIUM/ALBUTEROL 0.5-2.5 MG/3 ML AMPUL NEB SCH ×3 (08:15→23:55)
[2018-02-26] MEDS ORDERED: ACETAMINOPHEN 325 MG TABLET PO PRN (09:00)
[2018-02-26] MEDS: ASPIRIN 81 MG TABLET, CHEWABLE PO SCH (09:22)
[2018-02-26] MEDS: PREDNISONE 20 MG TABLET PO SCH (09:23)
[2018-02-26] MEDS: GUAIFENESIN 600 MG TABLET.SA PO SCH ×2 (09:23→21:05)
[2018-02-26] MEDS: MULTIVITAMINS W-IRON TABLET, CHEWABLE PO SCH (09:24)
[2018-02-26] MEDS: ENOXAPARIN SODIUM INJ 30 MG/0.3 ML DISP.SYRIN SUBCUT SCH (09:25)
--- NOTE | 2018-02-26 09:54 | RADIOLOGY REPORT (SQ) ---
EXAM DESCRIPTION: CHEST SINGLE VIEW COMPLETED DATE/TIME: 02/26/2018 9:35 am REASON FOR STUDY: dyspnea; ? aspiration COMPARISON: 02/24/2018 NUMBER OF VIEWS: One view. TECHNIQUE: Single frontal radiographic image of the chest acquired. LIMITATIONS: None. FINDINGS: LUNGS AND PLEURA: Stable appearance. MEDIASTINUM AND HILAR STRUCTURES: Stable heart size and mediastinal structures. HEART AND VASCULAR STRUCTURES: Stable appearance. BONES: No acute findings. HARDWARE: None in the chest. OTHER: No other significant finding. IMPRESSION: STABLE APPEARANCE OF THE CHEST. TECHNICAL DOCUMENTATION: JOB ID: [id number]- All Rights Reserved Reading location - IP/workstation name: [email or web address]
[2018-02-26] MEDS: CEFEPIME 2 GM/D5W RTU 2 GM/50 ML RTUPB IV SCH ×2 (11:13→22:34)
[2018-02-26] MEDS ORDERED: MAGNESIUM HYDROXIDE SUSP 30 ML UDCUP PO ONE (11:34)
[2018-02-26] MEDS ORDERED: BISACODYL 10 MG SUPP.RECT PR PRN (11:36)
[2018-02-26] MEDS: POTASSI CL 20 MEQ/50 ML RIDER 20 MEQ/50 ML RTUPB IV SCH ×2 (12:37→14:25)
[2018-02-26] MEDS: INSULIN LISPRO 100 UNIT/ML 3 ML VIAL SUBCUT PRN (12:56)
[2018-02-26] MEDS: MAGNESIUM SULFATE/D5W 1 GM/100 ML RTUPB IV SCH ×2 (13:39→16:13)
[2018-02-26] MEDS ORDERED: DIAZEPAM 2 MG TABLET PO PRN (14:15)
--- NOTE | 2018-02-26 14:22 | PDOC PROGRESS REPORT ---
Subjective Progress Note for:: 02/26/18 Subjective:: The patient is an 83-year-old male with past medical history of COPD, diabetes mellitus, hyperlipidemia, chronic EtOH use who was admitted on 02/16/18 for generalized weakness. The patient was seen on morning rounds. He is found resting in bed comfortably on supplemental oxygen via nasal cannula 2 L/min. He is noted to have a pulse oximetry of 97%. I decreased him to room air while in the room; maintained greater than 92%. The patient is awake, alert, oriented to self, place not situation or time. He does recognize my role which is improvement from yesterday when he asked multiple times who I was. He has been a call his and give her an update today. The patient denies headache, dizziness, chest pain, palpitations, orthopnea, abdominal pain, nausea, vomiting, and diarrhea. He does report slight dyspnea and an occasional nonproductive cough, but states that this is improved from yesterday. His primary complaint today is bilateral hip pain and right upper leg pain. He reports that the pain worsens with movements and that he is having difficulty finding a position of comfort. I spoke to his by phone this morning providing her an update. All questions and concerns were addressed prior to conclusion of our call. Per , the patient does not have a history of chronic back, hip, leg or knee pain. Nursing is concerned regarding edema and erythema to his Lt elbow at site of previous IV. Reason For Visit: ACUTE RENAL FAILURE, DEHYDRATION, HYPONATREMIA Physical Exam Vital Signs: Temp Pulse Resp BP Pulse Ox 97.5 F 96 18 120/69 99 02/26/18 07:42 02/26/18 08:15 02/26/18 08:15 02/26/18 07:42 02/26/18 07:42 Intake & Output 02/25/18 02/26/18 02/27/18 06:59 06:59 06:59 Intake Total 1630.2 2196.2 Output Total 1300 2700 Balance 330.2 -503.8 Weight 77.4 kg 78.2 kg General appearance: PRESENT: no acute distress, cooperative, hard of hearing, well-developed, well-nourished Head exam: PRESENT: atraumatic, normocephalic Eye exam: PRESENT: conjunctiva pink, EOMI, PERRLA. ABSENT: scleral icterus Ear exam: PRESENT: normal external ear exam Mouth exam: PRESENT: moist, tongue midline Teeth exam: PRESENT: poor dentation Neck exam: ABSENT: carotid bruit, JVD, lymphadenopathy, thyromegaly Respiratory exam: PRESENT: rhonchi - Occasional, symmetrical, unlabored. ABSENT : rales, wheezes Cardiovascular exam: PRESENT: irregular rhythm, +S1, +S2. ABSENT: diastolic murmur, rubs, systolic murmur Pulses: PRESENT: normal dorsalis pedis pul Vascular exam: PRESENT: normal capillary refill GI/Abdominal exam: PRESENT: normal bowel sounds, soft. ABSENT: distended, guarding, mass, organolmegaly, rebound, tenderness Rectal exam: PRESENT: deferred Gentrourinary exam: PRESENT: indwelling catheter Extremities exam: PRESENT: full ROM, tenderness - Bilateral hips, R>L and right medial thigh. No deformity, edema, erythema, or ecchymosis noted. Pain is not especially worsened by palpation but does increase with range of motion.. ABSENT: calf tenderness, clubbing, pedal edema Neurological exam: PRESENT: alert, awake, oriented to person, oriented to place , CN II-XII grossly intact, other - Intermittently confused and yelling out; improved from yesterday.. ABSENT: oriented to time, oriented to situation, motor sensory deficit Psychiatric exam: PRESENT: appropriate affect, normal mood. ABSENT: homicidal ideation, suicidal ideation Skin exam: PRESENT: dry, intact, warm. ABSENT: cyanosis, rash Results Laboratory Results: 02/26/18 04:49 02/26/18 04:49 02/26/18 02/26/18 02/26/18 04:49 04:49 04:49 WBC 8.5 RBC 2.81 L Hgb 9.9 L Hct 28.2 L MCV 101 H MCH 35.1 H MCHC 34.9 RDW 15.1 H Plt Count 174 Sodium 138.8 Potassium 3.3 L Chloride 99 Carbon Dioxide 27 Anion Gap 13 BUN 24 H Creatinine 0.70 Est GFR ( Amer) > 60 Est GFR (Non-Af Amer) > 60 Glucose 236 H Calcium 8.2 L Magnesium 1.3 L 02/16/18 02/16/18 02/17/18 17:14 21:45 03:42 Troponin I 0.048 0.055 0.061 NT-Pro-B Natriuret Pep 02/17/18 02/18/18 02/24/18 15:44 05:16 00:19 Troponin I 0.061 NT-Pro-B Natriuret Pep 1810 H 25503 H 02/25/18 06:20 Troponin I NT-Pro-B Natriuret Pep 66783 H Impressions: Acute Abdomen Series 02/16/18 09:20 IMPRESSION: 1 Stable examination of the chest since the prior study dated 05/22. 2. Mild to moderate dilated colonic loops, non-obstructive pattern. 3. Prior endovascular stent graft repair for abdominal aortic aneurysm. Head CT 02/20/18 00:00 IMPRESSION: CHRONIC CHANGES OF ATROPHY AND MICROVASCULAR ISCHEMIA. NO ACUTE PROCESS. EVIDENCE OF ACUTE STROKE: NO. KUB X-Ray 02/22/18 00:00 IMPRESSION: NG tube down, appropriate. Chest X-Ray 02/26/18 06:00 IMPRESSION: STABLE APPEARANCE OF THE CHEST. Assessment & Plan - Diagnosis (1) Acute renal failure (ARF) Qualifiers: Acute renal failure type: unspecified Qualified Code(s): N17.9 - Acute kidney failure, unspecified Is this a current diagnosis for this admission?: Yes Plan: Resolved; creatinine is now normal at 0.70. Acute renal failure was prerenal secondary to dehydration. The patient did pass swallow evaluation yesterday; will encourage p.o. fluids. Maintenance IV fluids are discontinued; patient is receiving 1L of IV fluids in the form of his antibiotics. Antibiotics are renally dosed per pharmacy. Otherwise, we will continue to avoid nephrotoxic medications as able. We will continue to monitor daily chemistries. (2) Atrial fibrillation Qualifiers: Atrial fibrillation type: unspecified Qualified Code(s): I48.91 - Unspecified atrial fibrillation Is this a current diagnosis for this admission?: Yes Plan: Atrial fibrillation; unknown duration. Family admittedly do not know his medical history well. EKG demonstrated A. fib with multiform PVCs. Echocardiogram revealed a normal LVEF and no other significant findings. Cardiology has been consulted; and have subsequently signed off. Continue daily aspirin. Continue Lopressor 2.5 mg IV every 6 hours; cardiology recommends transition to Lopressor 25 mg p.o. every 8 hours once tolerating p.o. Chest vascular 3; patient is a poor candidate for anticoagulation due to chronic EtOH use and multiple recent falls. (3) Alcohol withdrawal Qualifiers: Complication of substance-induced condition: with unspecified complication Qualified Code(s): F10.239 - Alcohol dependence with withdrawal, unspecified Is this a current diagnosis for this admission?: Yes Plan: Acute withdrawal has passed. The patient reportedly drinks 1-1/2 bottles of wine daily and abruptly stopped drinking alcohol about 7 days prior to admission. No known history of alcohol withdrawal seizure. Have successfully weaned to p.o. Valium as needed for anxiety/agitation/ withdrawal. Antiemetics as needed. Daily thiamine, folate, multivitamin. Discharge planning is consulted. (4) Type 2 diabetes mellitus Qualifiers: Diabetes mellitus residential insulin use: without residential use Is this a current diagnosis for this admission?: No Plan: The patient is placed on a consistent carb diet. We will check Accu-Cheks before meals and at bedtime and provide Humalog sliding scale coverage. Hypoglycemia protocols in place. (5) COPD (chronic obstructive pulmonary disease) Qualifiers: COPD type: unspecified COPD Qualified Code(s): J44.9 - Chronic obstructive pulmonary disease, unspecified Is this a current diagnosis for this admission?: Yes Plan: History of COPD; slight exacerbation, improved following initiation of scheduled nebs and prednisone yesterday. Provide supplemental oxygen as needed to maintain oxygen saturations greater than 88%. Currently maintaining saturations on room air. Scheduled and as needed nebulizer treatments are provided. Continue p.o. prednisone.; Day #2 Holding Serevent and Spiriva while receiving scheduled duo nebs. Mucinex twice daily. Repeat chest xray is reassuring. (6) Hyperlipidemia Is this a current diagnosis for this admission?: No Plan: Continue home dose atorvastatin. (7) Alcohol dependence, continuous Is this a current diagnosis for this admission?: Yes Plan: Plan as above. (8) Encephalopathy Is this a current diagnosis for this admission?: Yes Plan: Continues to improve. Secondary to alcohol withdrawal, chronic alcoholism, infection oh (pneumonia), malnutrition, prolonged hospital admission, and likely underlying dementia. Head CT was negative. Continue to wean p.o. valium for alcohol withdrawal. Continue daily thiamine, folate, and multivitamin. Antibiotic therapies as outlined elsewhere. Supportive care; fall, aspiration precautions. (9) Nutritional deficiency Is this a current diagnosis for this admission?: Yes Plan: Speech therapy cleared patient for thin liquids with a ground meat diet; however , nursing reports concerns the patient is coughing with each swallow. Repeat chest xray is reassuring. We will ask speech therapy to reevaluate the patient. He is placed on a consistent carb/cardiac diet; ground meats with thin liquids. Aspiration precautions. May require encouraging/prompting by nursing staff and assistance at meals. We will continue to monitor closely; patient has removed multiple NG tube. Although the family indicates that they would consider a PEG if necessary, I would have similar concerns that the patient would also remove this tube. As the patient's mental status appears to be improving rapidly over the last 24- 48 hours, anticipate that he will begin taking in more p.o. fluids and nutrition. (10) PNA (pneumonia) Is this a current diagnosis for this admission?: Yes Plan: As evidenced by infiltrates noted on x-ray. Repeat chest x-ray today was normal. Sputum culture is pending; does not appear to have been collected yet. Blood cultures (02/16/18) no growth at final. Repeat blood cultures (02/25/18) at 24 hours. The patient remains afebrile with normal WBCs. However, is noted to be intermittently tachypneic with occasional increased supplemental oxygen needs. Potentially imaging reflects atelectasis. Symptoms and vital signs may also be attributed to mild COPD flare versus CHF exacerbation. Continue cefepime and vancomycin for hospital-acquired pneumonia; day #6. We will plan on discontinuing antibiotics tomorrow once cultures are negative at 48 hours as repeat chest x-ray is negative for pneumonia, patient remains afebrile with a normal white count, and symptoms appear to be more closely related to a mild COPD exacerbation. (11) CHF (congestive heart failure) Qualifiers: Heart failure type: diastolic Heart failure chronicity: unspecified Qualified Code(s): I50.30 - Unspecified diastolic (congestive) heart failure Is this a current diagnosis for this admission?: Yes Plan: Echocardiogram revealed preserved ejection fraction. Chest x-ray today is clear. ProBNP (02/24/18) elevated to 14 K. Daily weights. Strict I&Os; funes order provided to assist. Will monitor closely and provide intermittent Lasix as needed. (12) Dehydration Is this a current diagnosis for this admission?: Yes Plan: Resolved; Plan as above. (13) Gastroenteritis Is this a current diagnosis for this admission?: Yes Plan: Resolved. (14) Full code status Is this a current diagnosis for this admission?: Yes (15) Hypokalemia Is this a current diagnosis for this admission?: Yes Plan: Secondary to poor p.o. intake and recent IV furosemide. The patient's diet has been advanced. Now holding furosemide as the patient's lung sounds and chest x-ray have cleared. He is provided IV potassium today Will monitor chemistries and correct as necessary. (16) Hypomagnesemia Is this a current diagnosis for this admission?: Yes Plan: Secondary to poor p.o. intake. Will replace. - Time Time Spent with patient: 25-34 minutes Medications reviewed and adjusted accordingly: Yes Anticipated discharge: SNF
--- NOTE | 2018-02-26 16:10 | RADIOLOGY REPORT (SQ) ---
EXAM DESCRIPTION: KNEE RIGHT 2 VIEWS COMPLETED DATE/TIME: 02/26/2018 3:55 pm REASON FOR STUDY: bilateral hip pain; hx frequent falls prior to adm COMPARISON: None. NUMBER OF VIEWS: Two views TECHNIQUE: AP and lateral radiographic images acquired of the right knee. LIMITATIONS: None. FINDINGS: MINERALIZATION: Normal. BONES: No acute fracture or dislocation. No worrisome bone lesions. JOINT: No effusion. SOFT TISSUES: No soft tissue swelling. No radio-opaque foreign body. OTHER: Extensive vascular calcifications are identified. IMPRESSION: NO RADIOGRAPHIC EVIDENCE OF ACUTE INJURY. TECHNICAL DOCUMENTATION: JOB ID: [id number] [employer]- All Rights Reserved Reading location - IP/workstation name: [email or web address]
[2018-02-26] MEDS: LIDOCAINE 5% (700 MG) TRANSDERMAL ADH..PATCH TP SCH (16:13)
--- NOTE | 2018-02-26 16:14 | RADIOLOGY REPORT (SQ) ---
EXAM DESCRIPTION: HIP BILATERAL COMPLETED DATE/TIME: 02/26/2018 3:55 pm REASON FOR STUDY: bilateral hip pain; hx frequent falls prior to adm COMPARISON: None. NUMBER OF VIEWS: Two views TECHNIQUE: AP pelvis and additional frog-leg view of both hips. LIMITATIONS: None. FINDINGS: MINERALIZATION: Normal. HIPS: No acute fracture or dislocation. No worrisome bone lesions. PELVIS AND SACRUM: No acute fracture or dislocation. No worrisome bone lesions. PUBIS AND ISCHIUM: No acute fracture. LOWER LUMBAR SPINE: Degenerative changes are identified in the lower lumbar spine. SOFT TISSUES: Vascular stents are identified at the level of the distal abdominal aorta and both sima c vessels. Vascular calcifications are identified. OTHER: No other significant finding. IMPRESSION: No acute fracture or dislocation. Other findings as noted above TECHNICAL DOCUMENTATION: JOB ID: [id number] [employer]- All Rights Reserved Reading location - IP/workstation name: [email or web address]
[2018-02-26] MEDS: TAMSULOSIN HCL 0.4 MG CAP.SR.24H PO SCH (17:46)
[2018-02-26] MEDS: PHARMACY COMMUNICATION ORDER MC SCH (21:04)
[2018-02-26] MEDS: THIAMINE HCL 100 MG, FOLIC ACID 1 MG in NORMAL SALINE 250 ML IV SCH (21:51)
[2018-02-27] MEDS: METOPROLOL TARTRATE PF/INJ 5 MG/5 ML SDV IV SCH ×2 (00:37→05:23)
[2018-02-27] MEDS ORDERED: METOPROLOL TARTRATE PF/INJ 5 MG/5 ML SDV IV ONE (08:21)
[2018-02-27] MEDS: IPRATROPIUM/ALBUTEROL 0.5-2.5 MG/3 ML AMPUL NEB SCH ×3 (08:23→23:05)
[2018-02-27] MEDS ORDERED: NA PHOS,M-B/NA PHOS,DI-BA (ADULT) 133 ML ENEMA PR PRN (08:33)
[2018-02-27] MEDS: VANCOMYCIN HCL 750 MG in DEXTROSE 5%-WATER 250 ML IV SCH (09:06)
[2018-02-27 09:23] LABS: HEMATOCRIT 27.2 % (37.9-51.0); HEMOGLOBIN 9.3 g/dL (13.5-17.0); MEAN CORPUSCULAR HEMOGLOBIN 34.2 pg (27.0-33.4); MEAN CORPUSCULAR VOLUME 100 fl (80-97); PLATELET COUNT 204 10^3/uL (150-450); RED BLOOD COUNT 2.71 10^6/uL (4.35-5.55); RED CELL DISTRIBUTION WIDTH 15.3 % (11.5-14.0); WHITE BLOOD COUNT 9.2 10^3/uL (4.0-10.5)
[2018-02-27 09:52] LABS: ANION GAP 9 (5-19); BLOOD UREA NITROGEN 26 mg/dL (7-20); CALCIUM 8.1 mg/dL (8.4-10.2); CARBON DIOXIDE 30 mmol/L (22-30); CHLORIDE 99 mmol/L (98-107); GLUCOSE 137 mg/dL (75-110); POTASSIUM 3.7 mmol/L (3.6-5.0); SODIUM 137.8 mmol/L (137-145)
[2018-02-27 09:55] LABS: VANCOMYCIN,TROUGH 22.1 ug/mL (5.0-20.0)
[2018-02-27] MEDS ORDERED: ENOXAPARIN SODIUM INJ 40 MG/0.4 ML DISP.SYRIN SUBCUT SCH (10:00)
[2018-02-27] MEDS: LEVALBUTEROL HCL NEB 1.25 MG/3 ML AMPUL NEB PRN (10:08)
[2018-02-27 10:21] LABS: ARTERIAL BLOOD BASE EXCESS 6.7 mmol/L; ARTERIAL BLOOD H2CO3 1.28 mmol/L (1.05-1.35); ARTERIAL BLOOD HCO3 30.9 mmol/L (20-26); ARTERIAL BLOOD O2 SATURATION 85.9 % (94-98); ARTERIAL BLOOD PCO2 42.4 mmHg (35-45); ARTERIAL BLOOD PH 7.48 (7.35-7.45); ARTERIAL BLOOD PO2 47.3 mmHg (80-100); ARTERIAL BLOOD TOTAL CO2 32.2 mmol/L (23-27)
[2018-02-27 10:23] LABS: ARTERIAL BLOOD FIO2 4L
[2018-02-27] MEDS: METHYLPREDNISOLONE INJ 40 MG/1 ML SDV IV SCH ×3 (10:24→21:53)
[2018-02-27] MEDS: CEFEPIME 2 GM/D5W RTU 2 GM/50 ML RTUPB IV SCH ×2 (10:26→21:48)
[2018-02-27] MEDS: MULTIVITAMINS W-IRON TABLET, CHEWABLE PO SCH (10:26)
[2018-02-27] MEDS: ASPIRIN 81 MG TABLET, CHEWABLE PO SCH (10:26)
[2018-02-27] MEDS: GUAIFENESIN 600 MG TABLET.SA PO SCH ×2 (10:26→21:53)
[2018-02-27] MEDS ORDERED: LEVALBUTEROL HCL NEB 1.25 MG/3 ML AMPUL NEB ONE (10:30)
[2018-02-27] MEDS: ENOXAPARIN SODIUM INJ 30 MG/0.3 ML DISP.SYRIN SUBCUT SCH (10:31)
[2018-02-27] MEDS: LIDOCAINE 5% (700 MG) TRANSDERMAL ADH..PATCH TP SCH (10:43)
[2018-02-27 11:30] LABS: ALANINE AMINOTRANSFERASE 38 U/L (21-72); ALBUMIN 2.7 g/dL (3.5-5.0); ALKALINE PHOSPHATASE 71 U/L (38-126); ASPARTATE AMINO TRANSFERASE 29 U/L (17-59); BILIRUBIN,DIRECT 0.3 mg/dL (0.0-0.4); BILIRUBIN,TOTAL 0.7 mg/dL (0.2-1.3); TOTAL PROTEIN 5.2 g/dL (6.3-8.2)
[2018-02-27] MEDS: METOPROLOL TARTRATE 25 MG TABLET PO SCH ×2 (13:59→21:52)
[2018-02-27] MEDS ORDERED: METOPROLOL TARTRATE 25 MG TABLET PO SCH (14:00)
[2018-02-27] MEDS: TRAMADOL HCL 50 MG TABLET PO PRN (14:11)
[2018-02-27] MEDS ORDERED: NORMAL SALINE 1000 ML 1,000 ML IV PRN (14:45)
--- NOTE | 2018-02-27 17:01 | RADIOLOGY REPORT (SQ) ---
EXAM DESCRIPTION: CTA CHEST COMPLETED DATE/TIME: 02/27/2018 4:40 pm REASON FOR STUDY: hypoxia, dyspnea COMPARISON: Chest x-ray 02/26/2018 CT 07/31/2010 TECHNIQUE: CT scan of the chest performed using helical scanning technique with dynamic intravenous contrast injection. Images reviewed with lung, soft tissue and bone windows. Reconstructed coronal and sagittal MPR images reviewed. Additional 3 dimensional post-processing performed to develop Maximal Intensity Projection images (DC P). All images stored on PACS. All CT scanners at this facility use dose modulation, iterative reconstruction, and/or weight based d osing when appropriate to reduce radiation dose to as low as reasonably achievable (ALARA). [facility]: Dose Right [facility]: CareDose [facility]: Dose Right [facility]: Teradose 4D [facility]: [employer] CONTRAST TYPE AND DOSE: 36.68 64 mL Omnipaque 350- low osmolar. Contrast bolus optimized for the pulmonary arteries. Not diagnostic for the aorta. RENAL FUNCTION: BUN 26 creatinine 0.8 RADIATION DOSE: CT Rad equipment meets quality standard of care and radiation dose reduction techniq ues were employed. CTDIvol: 14.2 - 22.5 mGy. DLP: 554 mGy-cm. . LIMITATIONS: None. FINDINGS: LUNGS AND PLEURA: Small right pleural effusion. Patchy opacification in the right lower l obe. AORTA AND GREAT VESSELS: No aneurysm. Contrast bolus not optimized for the aorta. HEART: No pericardial effusion. Moderate to marked coronary artery calcifications. PULMONARY ARTERIES: Thrombus is present in the right lower lobe segmental branches. HILAR AND MEDIASTINAL STRUCTURES: No identified masses or abnormal nodes. HARDWARE: None in the chest. UPPER ABDOMEN: No significant findings. Limited exam. THYROID AND OTHER SOFT TISSUES: No masses. No adenopathy. BONES: No acute or significant finding. 3D MIPS: Confirm above findings. OTHER: No other significant finding. IMPRESSION: 1. Pulmonary emboli in the right lower lobe pulmonary segmental branches. 2. Small right pleural effusion. Possible right lower lobe pneumonia. COMMENT: Quality ID # [id number]: Final reports with documentation of one or more dose reduction techniques (e.g., Automated exposure control, adjustment of the mA and/or kV according to patient size, use of iterative reconstruction technique) TECHNICAL DOCUMENTATION: JOB ID: [id number] [employer]- All Rights Reserved Reading location - IP/workstation name: [email or web address]
[2018-02-27] MEDS: TAMSULOSIN HCL 0.4 MG CAP.SR.24H PO SCH (17:47)
--- NOTE | 2018-02-27 18:19 | EKG REPORT ---
SEVERITY:- ABNORMAL ECG - ATRIAL FIBRILLATION, V-RATE 97-124 PAIRED VENTRICULAR PREMATURE COMPLEXES NONSPECIFIC INTRAVENTRICULAR CONDUCTION DELAY MINIMAL ST DEPRESSION, ANTERIOR LEADS : Confirmed by: Keisha Loco 27-Feb-2018 18:18:09
--- NOTE | 2018-02-27 18:53 | PDOC PROGRESS REPORT ---
Subjective Progress Note for:: 02/27/18 Subjective:: The patient is an 83-year-old male with past medical history of COPD, diabetes mellitus, hyperlipidemia, chronic EtOH use who was admitted on 02/16/18 for generalized weakness. The patient was seen on morning rounds. He is found resting in bed on supplemental oxygen via nasal cannula 4 L/min. the patient is noted to be somnolent, arouses with gentle shake, but drifts quickly back to sleep. He is oriented to self only today and unable to answer further questions. He is briefly checked on later this afternoon and found to be sitting up in bed comfortably on supplemental oxygen via nasal cannula. He is alert and oriented to self and place. He remains more confused than yesterday, but is now conversationally appropriate. He denies headaches, dizziness, chest pain, palpitations, orthopnea, abdominal pain, hip and extremity pain. He does endorse dyspnea and slight cough. I spoke with the patient's this evening to discuss lab, ultrasound, CT results. We briefly discussed continued evidence for aspiration. The patient' s agrees to meet with me tomorrow morning to discuss goals of care; likely leaning towards palliative/hospice. Reason For Visit: ACUTE RENAL FAILURE, DEHYDRATION, HYPONATREMIA Physical Exam Vital Signs: Temp Pulse Resp BP Pulse Ox 97.8 F 89 20 115/58 L 94 02/27/18 12:00 02/27/18 15:45 02/27/18 15:45 02/27/18 12:00 02/27/18 15:45 Intake & Output 02/26/18 02/27/18 02/28/18 06:59 06:59 06:59 Intake Total 2196.2 2421.2 Output Total 2700 1125 Balance -503.8 1296.2 Weight 78.2 kg 75.2 kg General appearance: PRESENT: no acute distress, cooperative, hard of hearing - resolved in afternoon, mild distress, well-developed, well-nourished Head exam: PRESENT: atraumatic, normocephalic Eye exam: PRESENT: conjunctiva pink, EOMI, PERRLA. ABSENT: scleral icterus Ear exam: PRESENT: normal external ear exam Mouth exam: PRESENT: moist, tongue midline Teeth exam: PRESENT: poor dentation Neck exam: ABSENT: carotid bruit, JVD, lymphadenopathy, thyromegaly Respiratory exam: PRESENT: decreased breath sounds - Bibasilar, prolonged expiratory phas, rhonchi - Occasional, symmetrical, tachypnea. ABSENT: rales, wheezes Cardiovascular exam: PRESENT: irregular rhythm, +S1, +S2. ABSENT: diastolic murmur, rubs, systolic murmur Pulses: PRESENT: normal dorsalis pedis pul Vascular exam: PRESENT: normal capillary refill GI/Abdominal exam: PRESENT: normal bowel sounds, soft. ABSENT: distended, guarding, mass, organolmegaly, rebound, tenderness Rectal exam: PRESENT: deferred Extremities exam: PRESENT: full ROM, +2 edema - Left upper extremity. ABSENT: calf tenderness, clubbing, pedal edema Musculoskeletal exam: ABSENT: ambulatory Neurological exam: PRESENT: alert, awake, oriented to person, CN II-XII grossly intact, other - Improved alertness/clarity in the afternoon, although remains significantly confused to time, situation. ABSENT: oriented to place, oriented to time, oriented to situation, motor sensory deficit Psychiatric exam: PRESENT: appropriate affect, normal mood. ABSENT: homicidal ideation, suicidal ideation Skin exam: PRESENT: dry, intact, warm. ABSENT: cyanosis, rash Results Laboratory Results: 02/27/18 08:49 02/27/18 08:49 02/27/18 02/27/18 02/27/18 08:49 08:49 08:49 WBC 9.2 RBC 2.71 L Hgb 9.3 L Hct 27.2 L MCV 100 H MCH 34.2 H MCHC 34.0 RDW 15.3 H Plt Count 204 Carbonic Acid HCO3/H2CO3 Ratio ABG pH ABG pCO2 ABG pO2 ABG HCO3 ABG O2 Saturation ABG Base Excess FiO2 Sodium 137.8 Potassium 3.7 Chloride 99 Carbon Dioxide 30 Anion Gap 9 BUN 26 H Creatinine 0.79 Est GFR ( Amer) > 60 Est GFR (Non-Af Amer) > 60 Glucose 137 H Calcium 8.1 L Magnesium 1.9 Total Bilirubin 0.7 AST 29 ALT 38 Alkaline Phosphatase 71 Ammonia Total Protein 5.2 L Albumin 2.7 L 02/27/18 02/27/18 10:00 11:25 WBC RBC Hgb Hct MCV MCH MCHC RDW Plt Count Carbonic Acid 1.28 HCO3/H2CO3 Ratio 24:1 ABG pH 7.48 H ABG pCO2 42.4 ABG pO2 47.3 L ABG HCO3 30.9 H ABG O2 Saturation 85.9 L ABG Base Excess 6.7 FiO2 4L Sodium Potassium Chloride Carbon Dioxide Anion Gap BUN Creatinine Est GFR ( Amer) Est GFR (Non-Af Amer) Glucose Calcium Magnesium Total Bilirubin AST ALT Alkaline Phosphatase Ammonia < 8.7 L Total Protein Albumin 02/16/18 02/16/18 02/17/18 17:14 21:45 03:42 Troponin I 0.048 0.055 0.061 NT-Pro-B Natriuret Pep 02/17/18 02/18/18 02/24/18 15:44 05:16 00:19 Troponin I 0.061 NT-Pro-B Natriuret Pep 1810 H 90946 H 02/25/18 02/27/18 06:20 08:49 Troponin I NT-Pro-B Natriuret Pep 92909 H 5660 H Impressions: Acute Abdomen Series 02/16/18 09:20 IMPRESSION: 1 Stable examination of the chest since the prior study dated 05/22. 2. Mild to moderate dilated colonic loops, non-obstructive pattern. 3. Prior endovascular stent graft repair for abdominal aortic aneurysm. Head CT 02/20/18 00:00 IMPRESSION: CHRONIC CHANGES OF ATROPHY AND MICROVASCULAR ISCHEMIA. NO ACUTE PROCESS. EVIDENCE OF ACUTE STROKE: NO. KUB X-Ray 02/22/18 00:00 IMPRESSION: NG tube down, appropriate. Hip X-Ray 02/26/18 00:00 IMPRESSION: No acute fracture or dislocation. Other findings as noted above Knee X-Ray 02/26/18 00:00 IMPRESSION: NO RADIOGRAPHIC EVIDENCE OF ACUTE INJURY. Chest X-Ray 02/26/18 06:00 IMPRESSION: STABLE APPEARANCE OF THE CHEST. Chest/Abdomen CTA 02/27/18 00:00 IMPRESSION: 1. Pulmonary emboli in the right lower lobe pulmonary segmental branches. 2. Small right pleural effusion. Possible right lower lobe pneumonia. Assessment & Plan - Diagnosis (1) Acute renal failure (ARF) Qualifiers: Acute renal failure type: unspecified Qualified Code(s): N17.9 - Acute kidney failure, unspecified Is this a current diagnosis for this admission?: Yes Plan: Resolved; creatinine is now normal at 0.79. Acute renal failure was prerenal secondary to dehydration. Gentle maintenance IV fluids are resumed. Between IV antibiotics and maintenance fluids, patient should receive 1.5 L daily. Antibiotics are renally dosed per pharmacy. Otherwise, we will continue to avoid nephrotoxic medications as able. We will continue to monitor daily chemistries. (2) Pulmonary embolus, right Is this a current diagnosis for this admission?: Yes Plan: The patient became disoriented, somnolent, and hypoxic to the low 80s on supplemental oxygen via nasal cannula 4 L/min today. EKG revealed atrial fibrillation with. PVCs, no segment elevation or depression. ProBNP is reassuring; 5K Chemistry is acceptable. ABG revealed partially compensated metabolic/respiratory alkalosis with hypoxia. CTA of the chest revealed right pulmonary embolus and a right lower lobe pneumonia. The patient is placed on full dose Lovenox. Respiratory therapy found that the patient's nasal cannula had been damaged; this is been replaced, he is now maintaining oxygen saturations in the mid to high 90s on 4lpm. The patient's was updated; plan to meet tomorrow to discuss goals of care. indicates that she is leaning towards palliative/hospice. (3) Atrial fibrillation Qualifiers: Atrial fibrillation type: unspecified Qualified Code(s): I48.91 - Unspecified atrial fibrillation Is this a current diagnosis for this admission?: Yes Plan: Atrial fibrillation; unknown duration. Family admittedly do not know his medical history well. EKG demonstrated A. fib with multiform PVCs. Echocardiogram revealed a normal LVEF and no other significant findings. Cardiology has been consulted; and have subsequently signed off. Will consider reconsulting following family meeting tomorrow. Continue daily aspirin. Have transitioned to Lopressor 25 mg p.o. every 8 hours. Now on full dose Lovenox secondary to pulmonary embolus. Chest vascular 3; patient is a poor candidate for anticoagulation due to chronic EtOH use and multiple recent falls. (4) Alcohol withdrawal Qualifiers: Complication of substance-induced condition: with unspecified complication Qualified Code(s): F10.239 - Alcohol dependence with withdrawal, unspecified Is this a current diagnosis for this admission?: Yes Plan: Acute withdrawal has passed. The patient reportedly drinks 1-1/2 bottles of wine daily and abruptly stopped drinking alcohol about 7 days prior to admission. No known history of alcohol withdrawal seizure. Have successfully weaned off Valium Antiemetics as needed. Daily thiamine, folate, multivitamin. Discharge planning is consulted. (5) Type 2 diabetes mellitus Qualifiers: Diabetes mellitus halfway insulin use: without intermission coordinator use Is this a current diagnosis for this admission?: No Plan: Currently n.p.o. secondary to evidence of aspiration. We will check Accu-Cheks every 6 hours and provide Humalog sliding scale coverage. Hypoglycemia protocols in place. (6) COPD (chronic obstructive pulmonary disease) Qualifiers: COPD type: unspecified COPD Qualified Code(s): J44.9 - Chronic obstructive pulmonary disease, unspecified Is this a current diagnosis for this admission?: Yes Plan: History of COPD; slight exacerbation, improved following initiation of scheduled nebs and prednisone yesterday. Provide supplemental oxygen as needed to maintain oxygen saturations greater than 88%. Currently maintaining saturations on room air. Scheduled and as needed nebulizer treatments are provided. Continue p.o. prednisone.; Day #2 Holding Serevent and Spiriva while receiving scheduled duo nebs. Mucinex twice daily. Repeat chest xray is reassuring. (7) Hyperlipidemia Is this a current diagnosis for this admission?: No Plan: Continue home dose atorvastatin. (8) Alcohol dependence, continuous Is this a current diagnosis for this admission?: Yes Plan: Plan as above. (9) Encephalopathy Is this a current diagnosis for this admission?: Yes Plan: Worsened this morning during hypoxia episode, improved this afternoon. Appears to be unchanged from yesterday. This may be the patient's new baseline mental status. Secondary to alcohol withdrawal, chronic alcoholism, infection oh (pneumonia), malnutrition, prolonged hospital admission, and likely underlying dementia. Head CT was negative. Continue daily thiamine, folate, and multivitamin. Antibiotic therapies as outlined elsewhere. Supportive care; fall, aspiration precautions. (10) Nutritional deficiency Is this a current diagnosis for this admission?: Yes Plan: CTA of the chest reveals right lower lobe pneumonia. Nursing reports continued concern regarding aspiration; frequently coughs after meals. We will ask speech therapy to reevaluate the patient. The patient is placed n.p.o. with the exception of small sips of water and medications with aspiration precautions. Discussed with the patient's today. Briefly reviewed the difference between long-term and short-term feeding tubes. She is agreed to meet with me to tomorrow to discuss goals of care. She is indicated that she is likely leaning towards palliative and hospice care. I have encouraged her to invite the patient's children to this meeting. (11) PNA (pneumonia) Is this a current diagnosis for this admission?: Yes Plan: As evidenced by infiltrates noted on x-ray. Repeat chest x-ray today was normal. Sputum culture is pending; does not appear to have been collected yet. Blood cultures (02/16/18) no growth at final. Repeat blood cultures (02/25/18) at 48 hours. CTA of the chest reveals right lower lobe pneumonia; also demonstrates a right pulmonary embolus. Continue cefepime and vancomycin for hospital-acquired pneumonia; day #7. Antibiotics will be continued overnight; will discuss with the patient's tomorrow. Anticipating movement towards palliative/hospice services. (12) CHF (congestive heart failure) Qualifiers: Heart failure type: diastolic Heart failure chronicity: unspecified Qualified Code(s): I50.30 - Unspecified diastolic (congestive) heart failure Is this a current diagnosis for this admission?: Yes Plan: Echocardiogram revealed preserved ejection fraction. ProBNP (02/24/18) trended down to [address] of the chest today revealed a right pulmonary embolus. Daily weights. Strict I&Os; funes order provided to assist. Gentle IV fluids; 50 mL's per hour. Combined with antibiotics, patient should receive proximately 1.5 L daily. He is currently n.p.o. Will monitor closely and provide intermittent Lasix as needed. (13) Dehydration Is this a current diagnosis for this admission?: Yes Plan: Resolved; Plan as above. (14) Gastroenteritis Is this a current diagnosis for this admission?: Yes Plan: Resolved. (15) Hypokalemia Is this a current diagnosis for this admission?: Yes Plan: Resolved. Secondary to poor p.o. intake and recent IV furosemide. Will monitor chemistries and correct as necessary. (16) Hypomagnesemia Is this a current diagnosis for this admission?: Yes Plan: Resolved; secondary to poor p.o. intake. (17) Bilateral hip pain Is this a current diagnosis for this admission?: Yes Plan: Patient complains of bilateral hip pain; not especially worsened with activity. No deformities were noted. Bilateral hip x-ray yesterday was benign. He is being provided Lidoderm patches and tramadol for pain. Patient reports adequate pain control. PT/OT consultations. (18) Right leg pain Is this a current diagnosis for this admission?: Yes Plan: Knee and hip x-ray yesterday is benign. Pain management as above. (19) Left upper extremity swelling Is this a current diagnosis for this admission?: Yes Plan: Patient with left upper extremity edema, erythema, ecchymosis. Venous Doppler has been completed; formal report is not available. However, the tech did notify suspicion for SVT. As the patient has a confirmed pulmonary embolus, he has already been placed on full dose Lovenox. (20) Full code status Is this a current diagnosis for this admission?: Yes Plan: The patient will remain full code overnight. Discussed with the patient's today is current condition and recent imaging results. She is agreed to meet with me tomorrow to discuss goals of care. I have encouraged her to invite the patient's children to this meeting. She indicates that she is leaning towards palliative/hospice services. - Time Time Spent with patient: 35 or more minutes Medications reviewed and adjusted accordingly: Yes
[2018-02-27] MEDS: VANCOMYCIN HCL 500 MG in NORMAL SALINE 100 ML IV SCH (19:54)
[2018-02-27] MEDS ORDERED: VANCOMYCIN HCL 500 MG in DEXTROSE 5%-WATER 100 ML IV SCH (20:00)
[2018-02-27] MEDS: PHARMACY COMMUNICATION ORDER MC SCH (21:50)
[2018-02-27] MEDS: ENOXAPARIN SODIUM INJ 80 MG/0.8 ML DISP.SYRIN SUBCUT SCH (21:54)
[2018-02-27] MEDS: THIAMINE HCL 100 MG, FOLIC ACID 1 MG in NORMAL SALINE 250 ML IV SCH (22:36)
[2018-02-28] MEDS: INSULIN LISPRO 100 UNIT/ML 3 ML VIAL SUBCUT PRN (00:31)
[2018-02-28] MEDS: TRAMADOL HCL 50 MG TABLET PO PRN ×2 (02:46→11:31)
[2018-02-28] MEDS: METOPROLOL TARTRATE 25 MG TABLET PO SCH ×3 (05:07→19:01)
[2018-02-28] MEDS: METHYLPREDNISOLONE INJ 40 MG/1 ML SDV IV SCH ×3 (05:44→22:55)
[2018-02-28] MEDS: VANCOMYCIN HCL 500 MG in NORMAL SALINE 100 ML IV SCH (07:29)
[2018-02-28] MEDS: IPRATROPIUM/ALBUTEROL 0.5-2.5 MG/3 ML AMPUL NEB SCH ×2 (07:53→20:58)
[2018-02-28] MEDS: ASPIRIN 81 MG TABLET, CHEWABLE PO SCH (10:07)
[2018-02-28] MEDS: GUAIFENESIN 600 MG TABLET.SA PO SCH ×2 (10:07→22:55)
[2018-02-28] MEDS: LIDOCAINE 5% (700 MG) TRANSDERMAL ADH..PATCH TP SCH (10:07)
[2018-02-28] MEDS: MULTIVITAMINS W-IRON TABLET, CHEWABLE PO SCH (10:07)
[2018-02-28] MEDS: ENOXAPARIN SODIUM INJ 80 MG/0.8 ML DISP.SYRIN SUBCUT SCH ×2 (10:08→22:55)
[2018-02-28] MEDS: CEFEPIME 2 GM/D5W RTU 2 GM/50 ML RTUPB IV SCH (10:08)
--- NOTE | 2018-02-28 11:27 | XCELERA REPORT ---
[address] [address] Upper Extremity Venous Evaluation Name: AZEB GOMES JR Age: 83 yrs Gender: Male : 1935 Patient Status: Inpatient Patient Location: [address] [place], [place] [address] Study Date: 02/27/2018 02:31 PM Procedure: Unilateral duplex scan of the left upper extremity veins was performed, including responses to compression and other maneuvers. Reason For Study: LUE edema Ordering Physician: SIS TORRES Performed By: Charles Pimentel Left Sided Venous Evaluation Superficial vein, Cephailc, shows ecolucent interior, non compressible. Otherwise normal vessel filling wall to wall, compression and augmentation as well as Colour flow down to the forearm veins. Interpretation Summary No duplex evidence of DVT or obstruction in the left upper extremity. Acute superficial phlebitis as noted. : SIS TORRES > Scott Huang
[2018-02-28] MEDS ORDERED: LORAZEPAM INJ 2 MG/1 ML VIAL IV ONE ×2 (11:30→12:30)
[2018-02-28 12:14] LABS: HEMATOCRIT 25.5 % (37.9-51.0); HEMOGLOBIN 8.7 g/dL (13.5-17.0); MEAN CORPUSCULAR HEMOGLOBIN 34.6 pg (27.0-33.4); MEAN CORPUSCULAR HGB CONC 33.9 g/dL (32.0-36.0); MEAN CORPUSCULAR VOLUME 102 fl (80-97); PLATELET COUNT 213 10^3/uL (150-450); RED CELL DISTRIBUTION WIDTH 15.4 % (11.5-14.0); WHITE BLOOD COUNT 9.4 10^3/uL (4.0-10.5)
[2018-02-28] MEDS ORDERED: LORAZEPAM INJ 2 MG/1 ML VIAL ONE (12:18)
[2018-02-28 12:30] LABS: ANION GAP 11 (5-19); BLOOD UREA NITROGEN 32 mg/dL (7-20); CALCIUM 8.5 mg/dL (8.4-10.2); CARBON DIOXIDE 27 mmol/L (22-30); CHLORIDE 100 mmol/L (98-107); GLUCOSE 180 mg/dL (75-110); POTASSIUM 4.7 mmol/L (3.6-5.0); SODIUM 138.2 mmol/L (137-145)
[2018-02-28 12:42] LABS: TROPONIN I 0.041 ng/mL
--- NOTE | 2018-02-28 13:47 | RADIOLOGY REPORT (SQ) ---
EXAM DESCRIPTION: CT HEAD WITHOUT COMPLETED DATE/TIME: 02/28/2018 12:52 pm REASON FOR STUDY: headache, AMS COMPARISON: 02/20/2018. TECHNIQUE: Axial images acquired through the brain without intravenous contrast. Images reviewed wi th bone, brain and subdural windows. Images stored on PACS. All CT scanners at this facility use dose modulation, iterative reconstruction, and/or weight based d osing when appropriate to reduce radiation dose to as low as reasonably achievable (ALARA). [facility]: Dose Right [facility]: CareDose [facility]: Dose Right [facility]: Teradose 4D [facility]: Smart [employer] RADIATION DOSE: CT Rad equipment meets quality standard of care and radiation dose reduction techniq ues were employed. CTDIvol: 55.2 mGy. DLP: 1084 mGy-cm.mGy. LIMITATIONS: None. FINDINGS: VENTRICLES: Prominent. CEREBRUM: No masses. No hemorrhage. No midline shift. Areas of low density in the white matter mos t likely due to chronic micro-vascular ischemic change. No evidence for acute infarction. CEREBELLUM: No masses. No hemorrhage. No alteration of density. No evidence for acute infarction. EXTRAAXIAL SPACES: Age-related involutional change. No fluid collections. No masses. ORBITS AND GLOBE: No intra- or extraconal masses. Normal contour of globe without masses. CALVARIUM: No fracture. PARANASAL SINUSES: Chronic mucosal thickening left sphenoid sinus.SOFT TISSUES: No mass or hematoma. OTHER: No other significant finding. IMPRESSION: CHRONIC CHANGES OF ATROPHY AND MICROVASCULAR ISCHEMIA. NO SIGNIFICANT INTERVAL CHANGE. EVIDENCE OF ACUTE STROKE: NO. TECHNICAL DOCUMENTATION: JOB ID: [id number] Quality ID # [id number]: Final reports with documentation of one or more dose reduction techniques (e.g., Au tomated exposure control, adjustment of the mA and/or kV according to patient size, use of iterative reconstruction technique) 2010 [employer]- All Rights Reserved Reading location - IP/workstation name: [email or web address]
[2018-02-28] MEDS ORDERED: LORAZEPAM INJ 2 MG/1 ML VIAL IV PRN (17:19)
--- NOTE | 2018-02-28 17:41 | PDOC PROGRESS REPORT ---
Subjective Progress Note for:: 02/28/18 Subjective:: The patient is an 83-year-old male with past medical history of COPD, diabetes mellitus, hyperlipidemia, chronic EtOH use who was admitted on 02/16/18 for generalized weakness. The patient was seen on morning rounds. He is found resting in bed on supplemental oxygen via nasal cannula 4 L/min. The patient is awake and alert, complaining of a headache. He does not answer when asked his name, place, year , and states "I don't know" when asked the president. He has multiple family members present and does not appear to recognize most of them. Concerns per nursing; continues to report frequent PVCs, concern for aspiration , waxing and waning mental status, and overall condition worrisome for deterioration. Reason For Visit: ACUTE RENAL FAILURE, DEHYDRATION, HYPONATREMIA Physical Exam Vital Signs: Temp Pulse Resp BP Pulse Ox 98.1 F 80 18 126/74 H 94 02/28/18 07:34 02/28/18 07:50 02/28/18 07:50 02/28/18 07:34 02/28/18 07:50 Intake & Output 02/27/18 02/28/18 03/01/18 06:59 06:59 06:59 Intake Total 2421.2 960.2 419 Output Total 1125 475 Balance 1296.2 485.2 419 Weight 75.2 kg 75.7 kg General appearance: PRESENT: hard of hearing, mild distress, well-developed, well-nourished Head exam: PRESENT: atraumatic, normocephalic Eye exam: PRESENT: conjunctiva pink, EOMI, PERRLA. ABSENT: scleral icterus Ear exam: PRESENT: normal external ear exam Mouth exam: PRESENT: moist, tongue midline Teeth exam: PRESENT: poor dentation Neck exam: ABSENT: carotid bruit, JVD, lymphadenopathy, thyromegaly Respiratory exam: PRESENT: decreased breath sounds, prolonged expiratory phas - Bibasilar, rhonchi, symmetrical, unlabored, other - Supplemental oxygen via nasal cannula. ABSENT: rales, wheezes Cardiovascular exam: PRESENT: irregular rhythm, tachycardia. ABSENT: diastolic murmur, rubs, systolic murmur Pulses: PRESENT: normal dorsalis pedis pul Vascular exam: PRESENT: normal capillary refill GI/Abdominal exam: PRESENT: normal bowel sounds, soft. ABSENT: distended, guarding, mass, organolmegaly, rebound, tenderness Rectal exam: PRESENT: deferred Extremities exam: PRESENT: full ROM. ABSENT: calf tenderness, clubbing, pedal edema Neurological exam: PRESENT: alert, awake, CN II-XII grossly intact, other - Disoriented, an directable, does not follow directions. ABSENT: oriented to person, oriented to place, oriented to time, oriented to situation, motor sensory deficit Psychiatric exam: PRESENT: agitated, appropriate affect. ABSENT: homicidal ideation, suicidal ideation Skin exam: PRESENT: dry, intact, warm. ABSENT: cyanosis, rash Results Laboratory Results: 02/28/18 12:03 02/28/18 12:03 02/28/18 02/28/18 12: 12:03 WBC 9.4 RBC 2.50 L Hgb 8.7 L Hct 25.5 L MCV 102 H MCH 34.6 H MCHC 33.9 RDW 15.4 H Plt Count 213 Sodium 138.2 Potassium 4.7 Chloride 100 Carbon Dioxide 27 Anion Gap 11 BUN 32 H Creatinine 0.81 Est GFR ( Amer) > 60 Est GFR (Non-Af Amer) > 60 Glucose 180 H Calcium 8.5 Magnesium 1.9 02/16/18 02/16/18 02/17/18 17:14 21:45 03:42 Troponin I 0.048 0.055 0.061 NT-Pro-B Natriuret Pep 02/17/18 02/18/18 02/24/18 15:44 05:16 00:19 Troponin I 0.061 NT-Pro-B Natriuret Pep 1810 H 44250 H 02/25/18 02/27/18 02/28/18 06:20 08:49 12:03 Troponin I 0.041 NT-Pro-B Natriuret Pep 93943 H 5660 H 6700 H Impressions: Acute Abdomen Series 02/16/18 09:20 IMPRESSION: 1 Stable examination of the chest since the prior study dated 05/22. 2. Mild to moderate dilated colonic loops, non-obstructive pattern. 3. Prior endovascular stent graft repair for abdominal aortic aneurysm. KUB X-Ray 02/22/18 00:00 IMPRESSION: NG tube down, appropriate. Hip X-Ray 02/26/18 00:00 IMPRESSION: No acute fracture or dislocation. Other findings as noted above Knee X-Ray 02/26/18 00:00 IMPRESSION: NO RADIOGRAPHIC EVIDENCE OF ACUTE INJURY. Chest X-Ray 02/26/18 06:00 IMPRESSION: STABLE APPEARANCE OF THE CHEST. Chest/Abdomen CTA 02/27/18 00:00 IMPRESSION: 1. Pulmonary emboli in the right lower lobe pulmonary segmental branches. 2. Small right pleural effusion. Possible right lower lobe pneumonia. Head CT 02/28/18 00:00 IMPRESSION: CHRONIC CHANGES OF ATROPHY AND MICROVASCULAR ISCHEMIA. NO SIGNIFICANT INTERVAL CHANGE. EVIDENCE OF ACUTE STROKE: NO. Assessment & Plan - Diagnosis (1) Acute renal failure (ARF) Qualifiers: Acute renal failure type: unspecified Qualified Code(s): N17.9 - Acute kidney failure, unspecified Is this a current diagnosis for this admission?: Yes Plan: Resolved; creatinine is now normal at 0.81. Acute renal failure was prerenal secondary to dehydration. A long discussion was had with the patient's and son; they have requested that IVF be discontinued and the patient transitioned to hospice services. Continue to avoid nephrotoxic medications as able. (2) Pulmonary embolus, right Is this a current diagnosis for this admission?: Yes Plan: Yesterday, he patient became further disoriented, somnolent, and hypoxic to the low 80s on supplemental oxygen via nasal cannula 4 L/min. EKG revealed atrial fibrillation with PVCs, no segment elevation or depression. ProBNP is reassuring; 6K Chemistry is acceptable. ABG revealed partially compensated metabolic/respiratory alkalosis with hypoxia. CTA of the chest revealed right pulmonary embolus and a right lower lobe pneumonia. The patient is placed on full dose Lovenox. Respiratory therapy found that the patient's nasal cannula had been damaged; this is been replaced, he is now maintaining oxygen saturations in the mid to high 90s on 4lpm. (3) Headache Qualifiers: Headache type: unspecified Headache chronicity pattern: unspecified pattern Is this a current diagnosis for this admission?: Yes Plan: The patient was acutely agitated this morning and yelling about having a headache. He did not respond to Tylenol or tramadol. The patient's Lovenox was increased to full dose yesterday due to pulmonary embolism. Therefore, stat head CT imaging was obtained to rule out ICH. CT revealed chronic changes of atrophy and microvascular ischemia. No evidence of stroke. (4) Atrial fibrillation Qualifiers: Atrial fibrillation type: unspecified Qualified Code(s): I48.91 - Unspecified atrial fibrillation Is this a current diagnosis for this admission?: Yes Plan: Atrial fibrillation; unknown duration. Family admittedly do not know his medical history well. EKG demonstrated A. fib with multiform PVCs. Echocardiogram revealed a normal LVEF and no other significant findings. Cardiology has been consulted; and have subsequently signed off. Now on full dose Lovenox for PE. Have transitioned to Lopressor 25 mg p.o. every 6 hours. (5) Left upper extremity swelling Is this a current diagnosis for this admission?: Yes Plan: Patient with left upper extremity edema, erythema, ecchymosis. Venous Doppler revealed superficial thrombophlebitis. As the patient has a confirmed pulmonary embolus, he has already been placed on full dose Lovenox. (6) Type 2 diabetes mellitus Qualifiers: Diabetes mellitus long term care administrator insulin use: without intermediate use Is this a current diagnosis for this admission?: No Plan: Currently on a consistent carb diet; the family members have indicated they wish to pursue hospice and to allow the patient to eat. We did discuss increased risk for aspiration, they acknowledge and accept this risk stating that the do not wish to limit oral nutritional intake and are not interested in pursuing a PEG tube. We will check Accu-Cheks before meals and at bedtime hours and provide Humalog sliding scale coverage. Hypoglycemia protocols in place. (7) Alcohol withdrawal Qualifiers: Complication of substance-induced condition: with unspecified complication Qualified Code(s): F10.239 - Alcohol dependence with withdrawal, unspecified Is this a current diagnosis for this admission?: Yes Plan: Acute withdrawal has passed. The patient reportedly drinks 1-1/2 bottles of wine daily and abruptly stopped drinking alcohol about 7 days prior to admission. No known history of alcohol withdrawal seizure. Have successfully weaned off scheduled Valium Will provide Ativan 2 mg IV every 4 hours as needed for anxiety and agitation. Antiemetics as needed. Daily thiamine, folate, multivitamin. Discharge planning is consulted. (8) COPD (chronic obstructive pulmonary disease) Qualifiers: COPD type: unspecified COPD Qualified Code(s): J44.9 - Chronic obstructive pulmonary disease, unspecified Is this a current diagnosis for this admission?: Yes Plan: History of COPD; slight exacerbation, improved following initiation of scheduled nebs and prednisone. Provide supplemental oxygen as needed to maintain oxygen saturations greater than 88%. Currently maintaining saturations on supplemental oxygen at 4 L/min. Scheduled and as needed nebulizer treatments are provided. Continue p.o. prednisone.; Day #3 Holding Serevent and Spiriva while receiving scheduled duo nebs. Mucinex twice daily. (9) Hyperlipidemia Is this a current diagnosis for this admission?: No Plan: Continue home dose atorvastatin. (10) Alcohol dependence, continuous Is this a current diagnosis for this admission?: Yes Plan: Plan as above. (11) Encephalopathy Is this a current diagnosis for this admission?: Yes Plan: Waxing and waning; this may be near the patient's new baseline mental status. Secondary to metabolic/respiratory alkalosis, pulmonary embolism, alcohol withdrawal, chronic alcoholism, infection (aspiration pneumonitis/pneumonia), malnutrition, prolonged hospital admission, and likely underlying dementia. Head CT was negative. Continue daily thiamine, folate, and multivitamin. Antibiotic therapies as outlined elsewhere. Supportive care; fall, aspiration precautions. (12) Nutritional deficiency Is this a current diagnosis for this admission?: Yes Plan: CTA of the chest reveals right lower lobe pneumonia. Nursing reports continued concern regarding aspiration; frequently coughs after meals. We will ask speech therapy to reevaluate the patient for safety recommendations. The family members have indicated they wish to pursue hospice and to allow the patient to eat. We did discuss increased risk for aspiration, they acknowledge and accept this risk stating that the do not wish to limit oral nutritional intake and are not interested in pursuing a PEG tube. (13) PNA (pneumonia) Is this a current diagnosis for this admission?: Yes Plan: Likely aspiration pneumonitis/pneumonia. Sputum culture is pending; does not appear to have been collected yet. Blood cultures (02/16/18) no growth at final. Repeat blood cultures (02/25/18) at 72 hours. CTA of the chest reveals right lower lobe pneumonia; also demonstrates a right pulmonary embolus. The patient received a seven-day course of IV cefepime and vancomycin. Discussed with the patient's and son today. They have requested that I transition to oral antibiotics; will transition to Augmentin. They are also requesting that hospice services be arranged. (14) CHF (congestive heart failure) Qualifiers: Heart failure type: diastolic Heart failure chronicity: unspecified Qualified Code(s): I50.30 - Unspecified diastolic (congestive) heart failure Is this a current diagnosis for this admission?: Yes Plan: Echocardiogram revealed preserved ejection fraction. ProBNP (02/24/18) trended down to [address] of the chest today revealed a right pulmonary embolus. Daily weights. Strict I&Os; funes order provided to assist. The patient is advanced to a consistent carb diet; patient and family are requesting hospice services, therefore will not restrict to cardiac diet at this time. Will monitor closely and provide intermittent Lasix as needed. (15) Dehydration Is this a current diagnosis for this admission?: Yes Plan: Resolved; Plan as above. (16) Gastroenteritis Is this a current diagnosis for this admission?: Yes Plan: Resolved. (17) Hypokalemia Is this a current diagnosis for this admission?: Yes Plan: Resolved. Secondary to poor p.o. intake and recent IV furosemide. Will monitor chemistries and correct as necessary. (18) Hypomagnesemia Is this a current diagnosis for this admission?: Yes Plan: Resolved; secondary to poor p.o. intake. (19) Bilateral hip pain Is this a current diagnosis for this admission?: Yes Plan: Patient complains of bilateral hip pain; not especially worsened with activity. No deformities were noted. Bilateral hip x-ray yesterday was benign. He is being provided Lidoderm patches and tramadol for pain. Patient reports adequate pain control. PT/OT consultations. (20) Right leg pain Is this a current diagnosis for this admission?: Yes Plan: Knee and hip x-ray yesterday is benign. Pain management as above. (21) DNR (do not resuscitate) Is this a current diagnosis for this admission?: Yes Plan: A family meeting was held today; the patient's and neck, and son were present. We discussed the patient's overall health, hospital course, CT imaging demonstrating right lower lobe pneumonia concerning for continued aspiration events, and pulmonary embolus. The most form was reviewed; both the patient's and son were in agreement with all levels of care. They request the patient be made a DNR and referrals to inpatient hospice services be placed. They request the patient be allowed to eat; both confirming understanding of likely aspiration events and consequences. They adamantly deny nutrition via artificial means. They also indicate they wish for IV fluids and antibiotics be discontinued. They do request the patient be transferred patient to oral antibiotics to complete course of therapy for recurrent pneumonia. Discharge planning is consulted; appreciate their assistance. - Time Time Spent with patient: 35 or more minutes Medications reviewed and adjusted accordingly: Yes Anticipated discharge: Hospice Within: when bed available
[2018-02-28] MEDS: TAMSULOSIN HCL 0.4 MG CAP.SR.24H PO SCH (19:00)
[2018-02-28] MEDS: AMOXICILLIN TR/POT CLAVULANATE ES 600-42.9 MG/5 ML 75 ML PO SCH (22:58)
[2018-02-28] MEDS: PHARMACY COMMUNICATION ORDER MC SCH (22:59)
[2018-02-28] MEDS: MORPHINE SULFATE 10 MG/5 ML ORAL SOLUTION UDCUP PO PRN (23:06)
[2018-03-01] MEDS: METOPROLOL TARTRATE 25 MG TABLET PO SCH ×4 (00:21→17:23)
[2018-03-01 00:59] VITALS: BP 107/74
[2018-03-01] MEDS: MORPHINE SULFATE 10 MG/5 ML ORAL SOLUTION UDCUP PO PRN ×2 (03:42→09:34)
[2018-03-01] MEDS: METHYLPREDNISOLONE INJ 40 MG/1 ML SDV IV SCH (06:01)
[2018-03-01] MEDS: IPRATROPIUM/ALBUTEROL 0.5-2.5 MG/3 ML AMPUL NEB SCH (08:27)
[2018-03-01] MEDS ORDERED: GUAIFENESIN SYRP 200 MG/10 ML UDC PO PRN (09:06)
[2018-03-01] MEDS: MULTIVITAMINS W-IRON TABLET, CHEWABLE PO SCH (09:31)
[2018-03-01] MEDS: LIDOCAINE 5% (700 MG) TRANSDERMAL ADH..PATCH TP SCH (09:31)
[2018-03-01] MEDS: ENOXAPARIN SODIUM INJ 80 MG/0.8 ML DISP.SYRIN SUBCUT SCH (09:34)
[2018-03-01] MEDS: AMOXICILLIN TR/POT CLAVULANATE ES 600-42.9 MG/5 ML 75 ML PO SCH (09:53)
[2018-03-01] MEDS ORDERED: INSULIN LISPRO 100 UNIT/ML 3 ML VIAL SUBCUT PRN (10:00)
[2018-03-01] MEDS ORDERED: LORAZEPAM INJ 2 MG/1 ML VIAL IV PRN (13:24)
[2018-03-01] MEDS ORDERED: MORPHINE SULFATE 10 MG/ML INJ IV PRN (14:01)
--- NOTE | 2018-03-01 16:44 | PDOC DISCHARGE SUMMARY ---
General - Admit/Disc Date/PCP Admission Date/Primary Care Provider: 02/16/18 14:57 CHEMA FERNANDEZ MD Discharge Date: 03/01/18 - Discharge Diagnosis (1) Acute renal failure (ARF) Is this a current diagnosis for this admission?: Yes Summary: Resolved (2) Encephalopathy Is this a current diagnosis for this admission?: Yes Summary: Waxing and waning; this may be near the patient's new baseline mental status. Secondary to metabolic/respiratory alkalosis, pulmonary embolism, alcohol withdrawal, chronic alcoholism, infection (aspiration pneumonitis/pneumonia), malnutrition, prolonged hospital admission, and likely underlying dementia. Head CT (03/01/18) was negative for acute stroke; does demonstrate chronic changes of atrophy and microvascular ischemia change from previous head CT obtained on 02/20/18. The patient's family members have requested an MRI; test is pending at time of dictation. (3) Pulmonary embolus, right Is this a current diagnosis for this admission?: Yes Summary: Placed on full dose Lovenox 02/28/18 (4) Headache Is this a current diagnosis for this admission?: Yes Summary: Intermittent. Head CT (02/28/18) benign. (5) Atrial fibrillation Is this a current diagnosis for this admission?: Yes Summary: Previously atrial fibrillation with RVR requiring diltiazem drip and IV labetalol every 6 hours. He is currently rate controlled in the 90s on metoprolol 25 mg p.o. every 6 hours. (6) COPD (chronic obstructive pulmonary disease) Is this a current diagnosis for this admission?: Yes Summary: History of COPD; slight exacerbation recently. Wheezing, oxygenation, and respiratory rate have improved following addition of scheduled and as needed nebulizer treatments. Has received 4 days of steroid therapy. (7) Alcohol dependence, continuous Is this a current diagnosis for this admission?: Yes Summary: The patient reportedly drinks one half bottles of wine daily. He abruptly stopped drinking alcohol approximately 7 days prior to admission. He did experience alcohol withdrawal which was managed with scheduled and as needed benzodiazepines. The acute alcohol withdrawal period has now passed; no seizure activity during this admission. He was supported with daily thiamine, folate, multivitamins. (8) Nutritional deficiency Is this a current diagnosis for this admission?: Yes Summary: CTA of the chest reveals right lower lobe pneumonia. Nursing reports continued concern regarding aspiration; frequently coughs after meals. We will ask speech therapy to reevaluate the patient for safety recommendations. The family members have indicated they wish to pursue hospice and to allow the patient to eat. We did discuss increased risk for aspiration, they acknowledge and accept this risk stating that the do not wish to limit oral nutritional intake and are not interested in pursuing a PEG tube. (9) PNA (pneumonia) Is this a current diagnosis for this admission?: Yes Summary: Likely aspiration pneumonitis/pneumonia. Blood cultures (02/16/18) no growth at final. Repeat blood cultures (02/25/18) at 4 days. CTA of the chest reveals right lower lobe pneumonia; also demonstrates a right pulmonary embolus. The patient received a seven-day course of IV cefepime and vancomycin. Discussed with the patient's and son. They have requested that I transition to oral antibiotics; placed on p.o. Augmentin 02/28/18. (10) CHF (congestive heart failure) Is this a current diagnosis for this admission?: Yes Summary: Echocardiogram revealed preserved ejection fraction. ProBNP (02/24/18) trended down to [address] of the chest today revealed a right pulmonary embolus. (11) Bilateral hip pain Is this a current diagnosis for this admission?: Yes Summary: X-rays were benign. (12) Right leg pain Is this a current diagnosis for this admission?: Yes Summary: Bilateral hip x-rays and right knee imaging is benign. (13) Type 2 diabetes mellitus Is this a current diagnosis for this admission?: No Summary: Glucose 159-221 over the course of the last week. He has been provided Humalog sliding scale coverage as needed. His diet has now been advanced to a regular, pured, diet for pleasure feeds. Minimal p.o. intake. (14) Superficial thrombophlebitis of left upper extremity Is this a current diagnosis for this admission?: Yes (15) Left upper extremity swelling Is this a current diagnosis for this admission?: Yes Summary: Secondary to superficial venous thrombosis of the left forearm. (16) Hyperlipidemia Is this a current diagnosis for this admission?: No (17) Alcohol withdrawal Is this a current diagnosis for this admission?: Yes Summary: Acute withdrawal has passed. He has been successfully weaned from scheduled Valium, will continue to provide IV Ativan 2 mg every 2-4 hours as needed for anxiety and agitation. (18) Dehydration Is this a current diagnosis for this admission?: Yes Summary: Resolved. However, due to the patient's poor p.o. intake, this is likely to recur in short order. (19) Gastroenteritis Is this a current diagnosis for this admission?: Yes Summary: Resolved; secondary to acute alcohol withdrawal. (20) Hypokalemia Is this a current diagnosis for this admission?: Yes Summary: Resolved. (21) Hypomagnesemia Is this a current diagnosis for this admission?: Yes Summary: Resolved. (22) DNR (do not resuscitate) Is this a current diagnosis for this admission?: Yes Summary: A family meeting was held yesterday; the patient's , Dede, and son were present. We discussed the patient's overall health, hospital course, CT imaging demonstrating right lower lobe pneumonia concerning for continued aspiration events, and pulmonary embolus. The MOST form was reviewed; both the patient's and son were in agreement with each area of care. They request the patient be made a DNR and referrals to inpatient hospice services be placed. They request the patient be allowed to eat; both confirming understanding of likely aspiration events and consequences. They adamantly deny nutrition via artificial means. They also indicate they wish for IV fluids and antibiotics be discontinued. They do request the patient be transferred patient to oral antibiotics to complete course of therapy for recurrent pneumonia. - Additional Information Resuscitation Status: Do Not Resuscitate Prescriptions: Amox Tr/Potassium Clavulanate [Augmentin Es 600 mg-42.9 mg Susp 75 ml] 600 mg PO Q12 10 Days bottle Enoxaparin Sodium [Lovenox Inj 80 mg/0.8 ml Disp.syrin] 75 mg SUBCUT Q12 #60 disp.syrin Ipratropium/Albuterol Sulfate [Duoneb 3 ml Ampul] 3 ml NEB RTQ4HP PRN #120 vial.neb PRN Reason: Lidocaine [Lidoderm 5% (700 mg) Transdermal Patch] 1 patch TP DAILY #30 adh..patch Metoprolol Tartrate [Lopressor 25 mg Tablet] 25 mg PO Q6 #120 tablet Salmeterol Xinafoate [Serevent Diskus 50 Mcg/Dose 28 Dose/Diskus] 50 mcg IH Q12 #1 disk Tamsulosin HCl [Flomax 0.4 mg Cap.sr] 0.4 mg PO PCSUPPER #30 cap.sr.24h Tiotropium [place] [Spiriva Handihaler 5 Cap/Kit (18 Mcg/Cap)] 1 cap IH DAILY # 1 kit Home Medications: Albuterol Sulfate [Ventolin Hfa] 1 - 2 puff IH Q4 PRN 02/16/18 Acetaminophen [Tylenol 325 mg Tablet] 650 mg PO Q4HP PRN tablet 03/01/18 Amox Tr/Potassium Clavulanate [Augmentin Es 600 mg-42.9 mg Susp 75 ml] 600 mg PO Q12 10 Days bottle 03/01/18 Enoxaparin Sodium [Lovenox Inj 80 mg/0.8 ml Disp.syrin] 75 mg SUBCUT Q12 #60 disp.syrin 03/01/18 Guaifenesin [Robitussin Syrup 200 mg/10 ml Ud Cup] 200 mg PO Q4HP PRN udc 03/01 Ipratropium/Albuterol Sulfate [Duoneb 3 ml Ampul] 3 ml NEB RTQ4HP PRN #120 vial.neb 03/01/18 Lidocaine [Lidoderm 5% (700 mg) Transdermal Patch] 1 patch TP DAILY #30 adh..patch 03/01/18 Metoprolol Tartrate [Lopressor 25 mg Tablet] 25 mg PO Q6 #120 tablet 03/01/18 Multivitamins W-Iron [Flintstones Chewable Multivit W/Fe Tab] 2 tab PO DAILY tab.chew 03/01/18 Salmeterol Xinafoate [Serevent Diskus 50 Mcg/Dose 28 Dose/Diskus] 50 mcg IH Q12 #1 disk 03/01/18 Tamsulosin HCl [Flomax 0.4 mg Cap.sr] 0.4 mg PO PCSUPPER #30 cap.sr.24h Tiotropium [place] [Spiriva Handihaler 5 Cap/Kit (18 Mcg/Cap)] 1 cap IH DAILY # 1 kit 03/01/18 History of Present Illness History of Present Illness: AZEB GOMES JR is a 83 year old male with a limited past medical history, due to the patient's mental status and family's unawareness, but known to have COPD, type 2 diabetes mellitus, hyperlipidemia, and alcohol abuse alcohol abuse who presents to the emergency department today with a complaint of increased fatigue, generalized weakness, and diarrhea for the last 5-7 days after the patient abruptly stopped drinking alcohol. Per the family the patient drinks 1- 2 bottles of wine daily. The son believes that the patient was being treated for a COPD exacerbation which prompted him to stop drinking. They deny any seizure-like activity over the course of the previous week and do not believe that the patient has a history of alcohol withdrawal related seizures. Evaluation in the emergency department reveals tachypnea (respiration rate 23) and otherwise normal vital signs, leukocytosis (WBCs 17.3), mild anemia, Hyponatremia (sodium 131.8) a low bicarb (15) and acute renal failure with a BUN of 133 and creatinine of 2.29. His LFTs were benign, ammonia less than 8.7. Initial troponin was indeterminately elevated at 0.051 and a proBNP was elevated at 1960. Urinalysis was negative for UTI. EKG revealed atrial fibrillation, which per family members is new to the patient. An acute abdomen series was negative for acute cardiopulmonary findings, demonstrated mild to moderate dilated colonic loops in a nonobstructive pattern, and prior endovascular stent graft for repair of AAA. He is referred to the hospitalist service for admission and management of acute renal failure secondary to dehydration in the setting of alcohol withdrawal. Hospital Course Hospital Course: The patient was admitted with acute renal failure secondary to dehydration, gastroenteritis, and acute alcohol withdrawal. He was supported with IV fluids , antiemetics, analgesics, scheduled and as needed benzodiazepines as needed. Acute renal failure has resolved. During his acute withdrawal, the patient developed atrial fibrillation with RVR. He was placed on diltiazem drip with as needed IV labetalol. He is now rate controlled on p.o. metoprolol. He also developed a mild CHF exacerbation; echocardiogram demonstrated preserved ejection fraction, but proBNP is were elevated. He was diuresed with IV Lasix and his exacerbation has now resolved. The patient was briefly placed on tube feeds via nasogastric tube; unfortunately, the patient removed several NG tube. He was provided supportive care and monitor closely. His mental status waxes and wanes from oriented to self and family, but not place, time or situation. He was able to pass a swallow screening and his diet was advanced per speech therapy's recommendations, unfortunately, later that evening he was noted to have clear aspiration of pured foods. The patient's respiratory status is noted to worsen 8/4/[address] of the chest was obtained revealing a right -sided pulmonary embolus and right lower lobe pneumonia. A family meeting was held with the ultimate decision to place the patient in inpatient hospice services. [facility] has offered to care for this patient. Prior to discharge, he is obtaining a head MRI to assist with service connected disability applications that were already in process prior to his admission. He is discharged on full dose Lovenox for treatment of pulmonary embolus, metoprolol 25 mg every 6 hours for rate control, p.o. Augmentin for aspiration pneumonia, and nebulizer treatments COPD flare. Physical Exam Vital Signs: Temp Pulse Resp BP Pulse Ox 97.5 F 101 H 18 107/74 94 02/28/18 15:28 03/01/18 08:00 03/01/18 08:00 02/28/18 15:28 03/01/18 08:00 Intake & Output 02/28/18 03/01/18 03/02/18 06:59 06:59 06:59 Intake Total 960.2 786 Output Total 475 625 Balance 485.2 161 Weight 75.7 kg 74.8 kg General appearance: PRESENT: no acute distress, hard of hearing, well-developed , well-nourished. ABSENT: cooperative - Unable to follow directions secondary to altered mental status Head exam: PRESENT: atraumatic, normocephalic Eye exam: PRESENT: conjunctiva pink, EOMI, PERRLA. ABSENT: scleral icterus Ear exam: PRESENT: normal external ear exam Mouth exam: PRESENT: moist, tongue midline Teeth exam: PRESENT: poor dentation Neck exam: ABSENT: carotid bruit, JVD, lymphadenopathy, thyromegaly Respiratory exam: PRESENT: decreased breath sounds - Bibasilar, prolonged expiratory phas, rhonchi - Occasional, symmetrical, unlabored, other - Supplemental oxygen by nasal cannula. ABSENT: rales, wheezes Cardiovascular exam: PRESENT: irregular rhythm, +S1, +S2. ABSENT: diastolic murmur, rubs, systolic murmur Pulses: PRESENT: normal dorsalis pedis pul Vascular exam: PRESENT: normal capillary refill GI/Abdominal exam: PRESENT: normal bowel sounds, soft. ABSENT: distended, guarding, mass, organolmegaly, rebound, tenderness Rectal exam: PRESENT: deferred Gentrourinary exam: PRESENT: indwelling catheter Extremities exam: PRESENT: full ROM, +2 edema - Left upper extremity. ABSENT: calf tenderness, clubbing, pedal edema Musculoskeletal exam: ABSENT: ambulatory Neurological exam: PRESENT: alert, awake, oriented to person, CN II-XII grossly intact, other - Waxing and waning alertness; oriented to self, occasionally answers questions appropriately, rarely follows directions. ABSENT: oriented to place, oriented to time, oriented to situation, motor sensory deficit Psychiatric exam: PRESENT: agitated, normal mood Skin exam: PRESENT: dry, intact, warm. ABSENT: cyanosis, rash Results Laboratory Results: 02/28/18 12:03 02/28/18 12:03 02/16/18 02/16/18 02/17/18 17:14 21:45 03:42 Troponin I 0.048 0.055 0.061 NT-Pro-B Natriuret Pep 02/17/18 02/18/18 02/24/18 15:44 05:16 00:19 Troponin I 0.061 NT-Pro-B Natriuret Pep 1810 H 91461 H 02/25/18 02/27/18 02/28/18 06:20 08:49 12:03 Troponin I 0.041 NT-Pro-B Natriuret Pep 70138 H 5660 H 6700 H Impressions: Acute Abdomen Series 02/16/18 09:20 IMPRESSION: 1 Stable examination of the chest since the prior study dated 05/22. 2. Mild to moderate dilated colonic loops, non-obstructive pattern. 3. Prior endovascular stent graft repair for abdominal aortic aneurysm. KUB X-Ray 02/22/18 00:00 IMPRESSION: NG tube down, appropriate. Hip X-Ray 02/26/18 00:00 IMPRESSION: No acute fracture or dislocation. Other findings as noted above Knee X-Ray 02/26/18 00:00 IMPRESSION: NO RADIOGRAPHIC EVIDENCE OF ACUTE INJURY. Chest X-Ray 02/26/18 06:00 IMPRESSION: STABLE APPEARANCE OF THE CHEST. Chest/Abdomen CTA 02/27/18 00:00 IMPRESSION: 1. Pulmonary emboli in the right lower lobe pulmonary segmental branches. 2. Small right pleural effusion. Possible right lower lobe pneumonia. Head CT 02/28/18 00:00 IMPRESSION: CHRONIC CHANGES OF ATROPHY AND MICROVASCULAR ISCHEMIA. NO SIGNIFICANT INTERVAL CHANGE. EVIDENCE OF ACUTE STROKE: NO. Qualifiers - * PATIENT BEING DISCHARGED WITH ANY OF THE FOLLOWING DIAGNOSIS: Heart Failure Reason(s) for not prescribing ACEI/ARBS:: Hospice Care HF Pt being discharged on ACEI for LVEF less than 40%?: No Reason(s) for not prescribing ACEI:: Hospice Care HF Pt being discharged on ARBS for LVEF less than 40%?: No Reason(s) for not prescribing ARBS:: Hospice Care HF Pt with Afib discharged with Warfarin?: No Reason(s) for not prescribing Warfarin:: Hospice Care - Full dose Lovenox for PE HF Pt discharged on evidence-based Beta Mireya:: Yes Reason(s) for not prescribing evidence-based Beta Mireya:: Hospice Care Plan Discharge Plan: Transfer to [facility]. Time Spent: Greater than 30 Minutes
--- NOTE | 2018-03-01 17:21 | RADIOLOGY REPORT (SQ) ---
EXAM DESCRIPTION: MRI HEAD WITHOUT COMPLETED DATE/TIME: 03/01/2018 5:01 pm REASON FOR STUDY: AMS, Headache, FYI reported hx TBI COMPARISON: 05/23/2009 TECHNIQUE: Multiplanar imaging includes non-contrasted T1, T2, FLAIR, and diffusion with ADC map seq uences. Images stored on PACS. LIMITATIONS: Mild motion. FINDINGS: ANATOMY: No anomalies. Normal vascular flow voids. Pituitary fossa normal. CSF SPACES: Atrophy induced prominence of ventricles and CSF spaces. CEREBRUM: High signal intensity lesions scattered throughout the white matter on FLAIR imaging with d istribution suggesting micro-vascular ischemic changes. No evidence of hemorrhage, mass, or extraaxi al fluid collection. POSTERIOR FOSSA: No signal alteration. No hemorrhage. No edema, masses or mass effect. Internal nasim tory canals, cerebello-pontine angles, mastoids normal. DIFFUSION IMAGING: Negative for acute or sub-acute infarction. ORBITS: No masses. Globes normal. PARANASAL SINUSES: Mucosal thickening in the left sphenoid sinus. OTHER: No other significant finding. IMPRESSION: Negative for acute or sub-acute infarction. EVIDENCE OF ACUTE STROKE: NO. TECHNICAL DOCUMENTATION: JOB ID: [id number] [id number] 2010 [employer]- All Rights Reserved Reading location - IP/workstation name: [employer]
[2018-03-01] MEDS: TAMSULOSIN HCL 0.4 MG CAP.SR.24H PO SCH (17:23)
[2018-03-01] MEDS ORDERED: METHYLPREDNISOLONE INJ 40 MG/1 ML SDV IV SCH (18:00)
== END 2018-03-01 19:30 | disposition hospice, inpatient (51) | DRG 682 ==
LOC: ER 08:29 → EH 14:57 → 4N 02-17 00:40
PROVIDERS: ADMIT Internal Medicine; ATTEND Internal Medicine
PROC: 3E0F73Z Introduction of Anti-inflammatory into Respiratory Tract, Via Natural or Artificial Opening (ICD-10-PCS; 2018-02-17)
PROC: 0DH67UZ Insertion of Feeding Device into Stomach, Via Natural or Artificial Opening (ICD-10-PCS; principal; 2018-02-20)
PROC: 3E0G76Z Introduction of Nutritional Substance into Upper GI, Via Natural or Artificial Opening (ICD-10-PCS; 2018-02-20)
DX: N17.9 Acute kidney failure, unspecified (principal); G93.40 Encephalopathy, unspecified; I50.31 Acute diastolic (congestive) heart failure; I26.99 Other pulmonary embolism without acute cor pulmonale; J69.0 Pneumonitis due to inhalation of food and vomit; F10.239 Alcohol dependence with withdrawal, unspecified; K92.1 Melena; E87.1 Hypo-osmolality and hyponatremia; E46 Unspecified protein-calorie malnutrition; I82.812 Embolism and thrombosis of superficial veins of left lower extremity; J44.1 Chronic obstructive pulmonary disease with (acute) exacerbation; E87.4 Mixed disorder of acid-base balance; E86.0 Dehydration; E87.6 Hypokalemia; I48.91 Unspecified atrial fibrillation; E11.9 Type 2 diabetes mellitus without complications; E78.5 Hyperlipidemia, unspecified; Z66 Do not resuscitate; K52.9 Noninfective gastroenteritis and colitis, unspecified; Z78.1 Physical restraint status; F03.90 Unspecified dementia, unspecified severity, without behavioral disturbance, psychotic disturbance, mood disturbance, and anxiety; R51 Headache; E83.42 Hypomagnesemia; M25.552 Pain in left hip; M25.551 Pain in right hip; Z87.891 Personal history of nicotine dependence
CPT/HCPCS: 36415; 36600; 70450; 70551; 71045; 71275; 73522; 74018; 74022; 80048; 80053; 80076; 80202; 81001; 82140; 82550; 82553; 82803; 82962; 83690; 83735; 83880; 84100; 84439; 84443; 84484; 85025; 85027; 87040; 93005; 93010; 93306; 93971; 94640; 94667; 99285; G8978-GP; G8979-GP; G8987-GO; G8988-GO; G8996-GN; G8997-GN; G8998-GN; J0692; J0744; J1650; J1815; J1940; J1956; J2060; J2270; J2405; J2920; J3370; J3411; J3475; J3480; J3490; J7030; J7050; J7060; J7512; J7620; S0164